=== PATIENT | male | born 1965 | race Caucasian/White ===

== ENCOUNTER 2020-11-11 06:27 | Outpatient (REF) | payer OTHER, SELFPAY | END 2020-11-11 06:28 | disposition home or self-care (01) | LOC: HO.LAB 06:27 | PROVIDERS: PCP Internal Medicine; Visit Provider Internal Medicine | DX: Z20.828 Contact with and (suspected) exposure to other viral communicable diseases (principal) | CPT/HCPCS: C9803; U0003 ==

== ENCOUNTER 2020-11-18 08:41 | Outpatient (REF) | payer OTHER, SELFPAY ==
[2020-11-19 23:07] LABS: Phenytoin, Free/Unbound 1.4 mg/L (1.0-2.0)
== END 2020-11-18 08:42 | disposition home or self-care (01) ==
LOC: HO.LAB 08:41
PROVIDERS: PCP Internal Medicine; Visit Provider Internal Medicine
DX: R56.9 Unspecified convulsions (principal)
CPT/HCPCS: 36415; 80186

== ENCOUNTER 2020-11-23 11:18 | Outpatient (REF) | payer OTHER, SELFPAY | END 2020-11-23 11:19 | disposition home or self-care (01) | LOC: HO.LAB 11:18 | PROVIDERS: Visit Provider Internal Medicine | DX: Z20.822 Contact with and (suspected) exposure to COVID-19 (principal) | CPT/HCPCS: 36415; C9803; U0003 ==

== ENCOUNTER 2021-01-22 09:23 | Outpatient (REF) | payer OTHER, SELFPAY ==
[2021-01-22 10:03] LABS: MANUAL DIFF FLAG NO
[2021-01-22 10:13] LABS: Basophils Percent Auto 0.4 % (0-2); Eosinophils Absolute Auto 0.1 X10*3/uL (0.0-0.4); Eosinophils Percent Auto 1.6 % (0-4); Hematocrit 44.7 % (42-52); Hemoglobin 15.1 g/dl (14.0-18.0); Imm Gran Abs Auto 0.01 X10*3/uL (0.00-0.03); Imm Gran Pct Auto 0.1 % (0.0-0.4); Lymphocytes Absolute Auto 2.4 X10*3/uL (1.2-4.9); Mean Corpuscular HGB Conc 33.8 g/dl (31.0-36.0); Mean Corpuscular Volume 88.7 fL (80-98); Mean Platelet Volume 9.7 fL (9.4-12.4); Monocytes Absolute Auto 0.7 X10*3/uL (0.1-1.2); Monocytes Percent Auto 10.3 % (2-11); Neutrophils Absolute Auto 3.5 X10*3/uL (2.0-8.3); Neutrophils Percent Auto 52.6 % (45-73); Platelet Count 213 X10*3/uL (160-400); Red Blood Count 5.04 X10*6/uL (4.60-5.80); Red Cell Distribution Width 14.4 % (11.0-16.0); White Blood Count 6.7 X10*3/uL (4.8-10.8)
[2021-01-22 10:37] LABS: Alanine Aminotransferase 38 U/L (0-40); Albumin Level 4.5 g/dL (3.5-5.0); Alkaline Phosphatase 92 U/L (39-117); Anion Gap 13 (12-20); Aspartate Amino Transferase 27 U/L (5-37); Bilirubin Total 0.3 mg/dL (0.0-1.0); Blood Urea Nitrogen 22 mg/dL (9-16); Carbon Dioxide 28 mmol/L (22-29); Chloride 106 mmol/L (96-108); Cholesterol 181 mg/dL; Estimated Glomerular Filt Rate > 60; Glucose Fasting 92 mg/dL (60-99); HDL Cholesterol 66 mg/dL; LDL Cholesterol Calculated 102 mg/dl; Potassium 4.7 mmol/L (3.3-5.1); Sodium 142 mmol/L (135-145); Total Protein 7.4 g/dL (6.5-8.0); Triglycerides 68 mg/dL
== END 2021-01-22 09:24 | disposition home or self-care (01) ==
LOC: HO.LAB 09:23
PROVIDERS: PCP Internal Medicine; Visit Provider Internal Medicine
DX: E78.00 Pure hypercholesterolemia, unspecified (principal); E11.9 Type 2 diabetes mellitus without complications; R56.9 Unspecified convulsions
CPT/HCPCS: 36415; 80053; 80061; 85025

== ENCOUNTER 2021-08-13 09:05 | Outpatient (REF) | payer OTHER, SELFPAY ==
[2021-08-13 10:26] LABS: Alanine Aminotransferase 26 U/L (0-40); Albumin Level 4.4 g/dL (3.5-5.0); Alkaline Phosphatase 89 U/L (39-117); Anion Gap 11 (12-20); Aspartate Amino Transferase 41 U/L (5-37); Bilirubin Total 0.4 mg/dL (0.0-1.0); Blood Urea Nitrogen 16 mg/dL (9-16); Calcium 9.3 mg/dL (8.4-10.2); Carbon Dioxide 29 mmol/L (22-29); Chloride 108 mmol/L (96-108); Cholesterol 178 mg/dL; Estimated Glomerular Filt Rate > 60; Glucose Fasting 101 mg/dL (60-99); HDL Cholesterol 52 mg/dL; LDL Cholesterol Calculated 115 mg/dl; Potassium 4.8 mmol/L (3.3-5.1); Sodium 143 mmol/L (135-145); Triglycerides 59 mg/dL
[2021-08-13 11:02] LABS: Phenytoin Dilantin 24.6 ug/mL (10.0-20.0)
== END 2021-08-13 09:06 | disposition home or self-care (01) ==
LOC: HO.LAB 09:05
PROVIDERS: Absent Provider Psychiatry & Neurology Neurology; PCP Internal Medicine; Visit Provider Internal Medicine
DX: E78.00 Pure hypercholesterolemia, unspecified (principal); E78.5 Hyperlipidemia, unspecified; G40.909 Epilepsy, unspecified, not intractable, without status epilepticus
CPT/HCPCS: 36415; 80053; 80061; 80185

== ENCOUNTER 2021-09-06 08:50 | Outpatient (REF) | payer OTHER, SELFPAY | END 2021-09-06 08:51 | disposition home or self-care (01) | LOC: HO.LAB 08:50 | PROVIDERS: PCP Internal Medicine; Visit Provider Psychiatry & Neurology Neurology | DX: G40.909 Epilepsy, unspecified, not intractable, without status epilepticus (principal); Z79.899 Other long term (current) drug therapy | CPT/HCPCS: 36415; 80185 ==

== ENCOUNTER 2021-10-06 08:30 | Outpatient (REF) | payer OTHER, SELFPAY ==
[2021-10-06 10:08] LABS: Phenytoin Dilantin 14.3 ug/mL (10.0-20.0)
== END 2021-10-06 08:31 | disposition home or self-care (01) ==
LOC: HO.LAB 08:30
PROVIDERS: Internal Medicine; Visit Provider Psychiatry & Neurology Neurology
DX: G40.909 Epilepsy, unspecified, not intractable, without status epilepticus (principal)
CPT/HCPCS: 36415; 80185

== ENCOUNTER 2022-01-24 15:28 | Outpatient (REF) | payer OTHER, SELFPAY ==
[2022-01-24 16:52] LABS: Free T4 (Free Thyroxine) 0.87 ng/dL (0.71-1.85); Thyroid Stimulating Hormone 1.55 uIU/mL (0.32-4.0)
== END 2022-01-24 15:29 | disposition home or self-care (01) ==
LOC: HO.LAB 15:28
PROVIDERS: PCP Internal Medicine; Visit Provider Internal Medicine
DX: E04.1 Nontoxic single thyroid nodule (principal)
CPT/HCPCS: 36415; 84439; 84443

== ENCOUNTER 2022-02-07 08:54 | Outpatient (REF) | payer OTHER, SELFPAY ==
--- NOTE | ~2022-02-07 | US_ITS ---
EXAMINATION: US THYROID CLINICAL INFORMATION: Nontoxic single thyroid nodule. COMPARISON: None TECHNIQUE: Linear transducer grayscale and color Doppler examination with attention to the region of the thyroid. FINDINGS: SIZE: Measurements of the thyroid lobes and nodules are given in sagittal, anteroposterior and transverse dimensions respectively. Right Thyroid Lobe: 5.32 x 1.67 x 1.65 cm, volume 7.66 mL. Parenchyma: The gland echotexture is heterogeneous. Thyroid vascularity is normal. Left Thyroid Lobe: 5.29 x 1.56 x 2.07 cm, volume 8.97 mL. Parenchyma: The gland echotexture is heterogeneous. Thyroid vascularity is normal. Isthmus: 0.36 cm in maximum AP dimension. There are multiple small bilateral thyroid nodules. Estimated total number of nodules greater than or equal to 1 cm: 0. 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 Location: Isthmus. Size: 0.31 x 0.21 x 0.34 cm, volume 0.01 mL. Nodule characteristics: Composition: Spongiform (0). Echogenicity: Anechoic (0). Shape: Not taller than wide (0). Margins: Smooth (0). Echogenic Foci: None (0). ACR TI-RADS total points: 0 ACR TI-RADS category: 1 2. Location: Right superior. Size: 0.44 x 0.31 x 0.41 cm, volume 0.03 mL. Nodule characteristics: Composition: Cystic(0). ACR TI-RADS total points: 0 ACR TI-RADS category: 1 3. Location: Right mid. Size: 0.48 x 0.36 x 0.39 cm, volume 0.03 mL. Nodule characteristics: Composition: Cystic(0). ACR TI-RADS total points: 0 ACR TI-RADS category: 1 4. Location: Left superior. Size: 0.71 x 0.48 x 0.55 cm, volume 0.10 mL. Nodule characteristics: Composition: Cystic(0). ACR TI-RADS total points: 0 ACR TI-RADS category: 1 5. Location: Left mid. Size: 0.89 x 0.71 x 0.72 cm, volume 0.23 mL. Nodule characteristics: Composition: Solid (2). Echogenicity: Isoechoic (1). Shape: Not taller than wide (0). Margins: Smooth (0). Echogenic Foci: None (0). ACR TI-RADS total points: 3 ACR TI-RADS category: 3 NODES: No lymphadenopathy is seen in the tissue surrounding the thyroid gland. US/US thyroid IMPRESSION: Multiple small bilateral thyroid nodules. These do not meet TIA RADS criteria for follow-up exam or fine-needle aspiration. ACR TI-RADS RECOMMENDATION REFERENCE: Ultrasound-guided fine-needle aspiration, followup ultrasound, no further follow up. * TR1 (0 point) and TR 2 (2 points): No FNA or follow up * TR3 (3 points): FNA if more than or equal to 2.5 cm in maximum dimension, followup ultrasound in 1, 3 and 5 years if 1.5 to 2.4 cm in maximum dimension. * TR4 (4-6 points): FNA if more than or equal to 1.5 cm in maximum dimension, followup ultrasound in 1, 2, 3 and 5 years if 1 to 1.4 cm in maximum dimension. * TR5 (more than or equal to 7 points): FNA if more than or equal to 1 cm in maximum dimension, followup ultrasound every year for 5 years if 0.5 to 0.9 cm in maximum dimension. * TR3, TR4 or TR5 nodules that are below the size threshold for follow up receive no follow up.
== END 2022-02-07 08:55 | disposition home or self-care (01) ==
LOC: HO.HMGCX 08:54
PROVIDERS: PCP Internal Medicine; Visit Provider Internal Medicine
DX: E04.1 Nontoxic single thyroid nodule (principal)
CPT/HCPCS: 76536

== ENCOUNTER 2022-02-11 08:21 | Outpatient (REF) | payer OTHER, SELFPAY ==
[2022-02-11 09:37] LABS: Alanine Aminotransferase 40 U/L (0-40); Albumin Level 4.4 g/dL (3.5-5.0); Alkaline Phosphatase 88 U/L (39-117); Anion Gap 10 (12-20); Aspartate Amino Transferase 38 U/L (5-37); Bilirubin Total 0.2 mg/dL (0.0-1.0); Blood Urea Nitrogen 22 mg/dL (9-16); Calcium 9.4 mg/dL (8.4-10.2); Carbon Dioxide 29 mmol/L (22-29); Chloride 107 mmol/L (96-108); Cholesterol 198 mg/dL; Estimated Glomerular Filt Rate > 60; Glucose Fasting 100 mg/dL (60-99); HDL Cholesterol 59 mg/dL; LDL Cholesterol Calculated 129 mg/dl; Potassium 4.8 mmol/L (3.3-5.1); Sodium 141 mmol/L (135-145); Total Protein 7.1 g/dL (6.5-8.0); Triglycerides 53 mg/dL
[2022-02-11 10:49] LABS: Phenytoin Dilantin 21.2 ug/mL (10.0-20.0)
== END 2022-02-11 08:22 | disposition home or self-care (01) ==
LOC: HO.LAB 08:21
PROVIDERS: Absent Provider Psychiatry & Neurology Neurology; PCP Internal Medicine; Visit Provider Internal Medicine
DX: G40.909 Epilepsy, unspecified, not intractable, without status epilepticus (principal); E78.00 Pure hypercholesterolemia, unspecified; E78.5 Hyperlipidemia, unspecified; Z79.899 Other long term (current) drug therapy
CPT/HCPCS: 36415; 80053; 80061; 80185

== ENCOUNTER 2022-02-28 09:58 | Outpatient (REF) | payer OTHER, SELFPAY ==
[2022-02-28 11:47] LABS: Phenytoin Dilantin 14.4 ug/mL (10.0-20.0)
== END 2022-02-28 09:59 | disposition home or self-care (01) ==
LOC: HO.LAB 09:58
PROVIDERS: PCP Internal Medicine; Visit Provider Psychiatry & Neurology Neurology
DX: G40.909 Epilepsy, unspecified, not intractable, without status epilepticus (principal); Z79.899 Other long term (current) drug therapy
CPT/HCPCS: 36415; 80185

== ENCOUNTER 2022-07-05 07:36 | Outpatient (REF) | payer OTHER, SELFPAY ==
[2022-07-05 08:31] LABS: Alanine Aminotransferase 28 U/L (0-40); Albumin Level 4.4 g/dL (3.5-5.0); Alkaline Phosphatase 74 U/L (39-117); Anion Gap 13 (12-20); Aspartate Amino Transferase 36 U/L (5-37); Bilirubin Total 0.3 mg/dL (0.0-1.0); Blood Urea Nitrogen 23 mg/dL (9-16); Calcium 9.2 mg/dL (8.4-10.2); Carbon Dioxide 27 mmol/L (22-29); Chloride 106 mmol/L (96-108); Cholesterol 189 mg/dL; Estimated Glomerular Filt Rate > 60; Glucose Fasting 99 mg/dL (60-99); HDL Cholesterol 62 mg/dL; LDL Cholesterol Calculated 116 mg/dl; Potassium 4.5 mmol/L (3.3-5.1); Sodium 141 mmol/L (135-145); Total Protein 7.2 g/dL (6.5-8.0); Triglycerides 58 mg/dL
== END 2022-07-05 07:37 | disposition home or self-care (01) ==
LOC: HO.LAB 07:36
PROVIDERS: PCP Internal Medicine; Visit Provider Internal Medicine
DX: E78.5 Hyperlipidemia, unspecified (principal); E78.00 Pure hypercholesterolemia, unspecified
CPT/HCPCS: 36415; 80053; 80061

== ENCOUNTER 2022-08-15 16:00 | Outpatient (REF) | payer OTHER, SELFPAY ==
[2022-08-15 17:56] LABS: Phenytoin Dilantin 14.3 ug/mL (10.0-20.0)
== END 2022-08-15 16:01 | disposition home or self-care (01) ==
LOC: HO.LAB 16:00
PROVIDERS: PCP Internal Medicine; Visit Provider Psychiatry & Neurology Neurology
DX: G40.909 Epilepsy, unspecified, not intractable, without status epilepticus (principal); Z79.899 Other long term (current) drug therapy
CPT/HCPCS: 36415; 80185

== ENCOUNTER 2023-02-10 08:29 | Outpatient (REF) | payer OTHER, SELFPAY ==
[2023-02-10 09:47] LABS: Alanine Aminotransferase 29 U/L (0-40); Albumin Level 4.7 g/dL (3.5-5.0); Alkaline Phosphatase 82 U/L (39-117); Anion Gap 14 (12-20); Aspartate Amino Transferase 35 U/L (5-37); Bilirubin Total 0.4 mg/dL (0.0-1.0); Blood Urea Nitrogen 26 mg/dL (9-16); Calcium 9.4 mg/dL (8.4-10.2); Carbon Dioxide 25 mmol/L (22-29); Chloride 107 mmol/L (96-108); Cholesterol 221 mg/dL; Estimated Glomerular Filt Rate 54; Glucose Fasting 111 mg/dL (60-99); HDL Cholesterol 64 mg/dL; LDL Cholesterol Calculated 142 mg/dl; Phenytoin Dilantin 16.4 ug/mL (10.0-20.0); Potassium 4.9 mmol/L (3.3-5.1); Sodium 141 mmol/L (135-145); Total Protein 7.5 g/dL (6.5-8.0); Triglycerides 76 mg/dL
[2023-02-12 03:58] LABS: Phenytoin, Free/Unbound 0.7 mg/L (1.0-2.0)
== END 2023-02-10 08:30 | disposition home or self-care (01) ==
LOC: HO.LAB 08:29
PROVIDERS: Absent Provider Psychiatry & Neurology Neurology; PCP Internal Medicine; Visit Provider Internal Medicine
DX: E78.00 Pure hypercholesterolemia, unspecified (principal); E78.5 Hyperlipidemia, unspecified; G40.909 Epilepsy, unspecified, not intractable, without status epilepticus; Z79.899 Other long term (current) drug therapy
CPT/HCPCS: 36415; 80053; 80061; 80185; 80186

== ENCOUNTER 2023-03-16 13:26 | Outpatient (REF) | payer OTHER, SELFPAY ==
--- NOTE | ~2023-03-16 | XR_ITS ---
EXAMINATION: XR ELBOW, RIGHT CLINICAL INFORMATION: Right elbow pain. COMPARISON: None available. TECHNIQUE: AP, lateral, and oblique views of the right elbow. FINDINGS: Moderate soft tissue swelling is seen posterior to the olecranon. There is a small to moderate-sized posterior olecranon spur with lucency at the base. The joint spaces are unremarkable. No overt joint effusion is seen. XR/XR elbow RT min 3V IMPRESSION: 1. Moderate soft tissue swelling posterior to the olecranon is nonspecific, but could be secondary to bursitis. 2. Small to moderate-sized posterior olecranon spur with lucency at the base suggesting fracture of indeterminate age. Correlate with physical exam and trauma history.
== END 2023-03-16 13:27 | disposition home or self-care (01) ==
LOC: HO.HMGCX 13:26
PROVIDERS: PCP Internal Medicine; Visit Provider Physician Assistant Medical
DX: M70.31 Other bursitis of elbow, right elbow (principal)
CPT/HCPCS: 73080

== ENCOUNTER → 2023-04-05 14:15 | Outpatient (BNVA) | payer OTHER, SELFPAY | PROVIDERS: PCP Internal Medicine; Visit Provider Physician Assistant ==

== ENCOUNTER 2023-08-16 08:58 | Outpatient (REF) | payer OTHER, SELFPAY ==
[2023-08-16 11:07] LABS: Alanine Aminotransferase 35 U/L (0-40); Albumin Level 4.6 g/dL (3.5-5.0); Alkaline Phosphatase 77 U/L (39-117); Anion Gap 12 (12-20); Aspartate Amino Transferase 41 U/L (5-37); Bilirubin Total 0.3 mg/dL (0.0-1.0); Blood Urea Nitrogen 25 mg/dL (9-16); Calcium 9.6 mg/dL (8.4-10.2); Carbon Dioxide 29 mmol/L (22-29); Chloride 104 mmol/L (96-108); Cholesterol 205 mg/dL (<200); Estimated Glomerular Filt Rate > 60; Glucose Fasting 92 mg/dL (60-99); HDL Cholesterol 64 mg/dL (>40); LDL Cholesterol Calculated 126 mg/dL (<100); Potassium 4.7 mmol/L (3.3-5.1); Sodium 140 mmol/L (135-145); Total Protein 7.7 g/dL (6.5-8.0); Triglycerides 75 mg/dL (<150)
[2023-08-19 01:09] LABS: Phenytoin, Free/Unbound 1.1 mg/L (1.0-2.0)
== END 2023-08-16 08:59 | disposition home or self-care (01) ==
LOC: HO.LAB 08:58
PROVIDERS: PCP Internal Medicine; Visit Provider Internal Medicine
DX: E78.00 Pure hypercholesterolemia, unspecified (principal); R56.9 Unspecified convulsions; E78.5 Hyperlipidemia, unspecified
CPT/HCPCS: 36415; 80053; 80061; 80186

== ENCOUNTER 2023-08-17 07:23 | Outpatient (AMB) | payer OTHER, SELFPAY ==
[2023-08-17 07:31] VITALS: BP 118/68; PULSE 82; O2SAT 97; BMI 23.9
--- NOTE | 2023-08-17 07:31 | A.OFFPC_ITS ---
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 Accompanied by: Self / Same As Patient Allergies No Known Allergies Allergy (Verified 08/17/23 07:37) Medication List - Last Reconciled 08/17/23 by Keyona Carter MD loratadine (Allergy Relief (loratadine)) 10 mg PO DAILY naproxen sodium (Aleve) 220 mg PO BID PRN phenytoin sodium extended mg PO rosuvastatin 40 mg PO DAILY Tobacco use date assessed: 02/16/23 Dental Screening Dental Screen Date: 08/17/23 Did you have a dental visit in the last 12 months?: No Did you have a dental problem in the last 6 months where you did not have access to dental care?: No Was dental information given to patient?: Patient has dentist HPI HPI Comments History of Present Illness Details This is a 58-year-old male with pure hypercholesterolemia, seizures and allergic rhinitis that comes today for follow-up on his conditions. Cholesterol is elevated but he admits have fried foods and lipid panel will be repeated in 6 months after his dietary changes. Has not had a seizure in over 6 months. Allergic rhinitis stable with antihistamines. [facility] Medical History History of basal cell carcinoma Physical exam Thyroid nodule Dyspnea Allergic rhinitis Pure hypercholesterolemia Seizures Surgical History History of surgery History of colonoscopy H/O basal cell carcinoma excision Family History Father Myocardial infarction Uncontrolled persistent asthma Mother COPD (chronic obstructive pulmonary disease) Breast cancer Sister Asthma Brain tumor Maternal Aunt Breast cancer Social History Housing: Condominium Alcohol intake: never Patient Tobacco Use Status: Never used Tobacco e-Cigarette/Vaping Use: Never Used Second Hand Smoke Exposure: No service: No Current occupational status: unemployed and retired Cognitive needs: No Hearing needs: No Vision needs: No Questionnaire PHQ-9 Over the last 2 weeks, how often have you been bothered by any of the following problems? 1. Little interest or pleasure in doing things: not at all 2. Feeling down, depressed, or hopeless: not at all 3. Trouble falling or staying asleep, or sleeping too much: not at all 4. Feeling tired or having little energy: not at all 5. Poor appetite or overeating: not at all 6. Feeling bad about yourself - or that you are a failure or have let yourself or your family down: not at all 7. Trouble concentrating on things, such as reading the newspaper or watching television: not at all 8. Moving or speaking so slowly that other people could have noticed. Or the opposite - being so fidgety or restless that you have been moving around a lot more than usual: not at all 9. Thoughts that you would be better off or of hurting yourself in some way: not at all Total score: 0 Depression Screening Interpretation: Negative Depression Screening Done: Yes 59191 - PHQ-9 Billing: Yes Source: Developed by Drs. Cheng Ingram, Elif Perry, Patricio Xie and colleagues, with an educational dex from [employer]. Thrive Questionnaire Date Thrive assessed: 02/16/23 AUDIT C Alcohol Use Questionnaire (AUDIT-C) 1. How often do you have a drink containing alcohol?: Never Total Score: 0 Score Reviewed/Action Taken: No NAHID-7 AMB Questionnaire NAHID-7 Date NAHID - 7 assessed: 02/16/23 Source: Developed by Drs. Cheng Ingram, Patricio Bella and colleagues, with an educational dex from [employer]. Review of Systems Const All systems reviewed & are unremarkable except as noted in HPI and below Eyes Reports no additional complaints, Denies change in vision and Denies other visual disturbances Card Denies chest pain at rest, Denies chest pain with activity, Denies edema, Denies irregular heart rhythm, Denies claudication, Denies dyspnea, Denies dyspnea on exertion, Denies orthopnea, Denies paroxysmal nocturnal dyspnea and Denies slow heart rate Resp Denies cough, Denies dyspnea and Denies dyspnea on exertion GI Denies abdominal pain, Denies change in bowel habits, Denies excessive flatus, Denies nausea and Denies vomiting Denies urinary hesitancy, Denies urinary incontinence and Denies urinary urgency Musc Denies abnormal gait, Denies atrophy, Denies deformity and Denies limited range of motion Skin/Breast Denies bleeding lesions, Denies changing lesions and Denies rash Neuro Denies abnormal gait and Denies lack of coordination Physical exam (Primary Care) Vital Signs: Last Vital Signs Pulse 82 08/17/23 07:31 BP 118/68 08/17/23 07:31 Pulse Ox 97 08/17/23 07:31 Oxygen Delivery Method Room Air 08/17/23 07:31 BMI result Body Mass Index 23.9 Tobacco/Smoking Status: Tobacco use Status Tobacco use date assessed 02/16/23 08/17/23 07:35 Patient Tobacco Use Status Never used Tobacco 08/17/23 07:35 e-Cigarette/Vaping Use Never Used 08/17/23 07:35 PHQ-9: PHQ-9 Score PHQ-9: Total score 0 08/17/23 07:35 Depression Screening Interpretation: Negative Thrive Assessment: Date of Thrive Assessment Date Thrive assessed 02/16/23 08/17/23 07:35 Const Orientation/consciousness: patient oriented x3 Eyes General: appearance normal, both eyes and all related structures Eyelids: Yes eyelids normal Conjunctivae: conjunctivae normal Neck Neck: Yes normal visual inspection and Yes supple Resp Effort & Inspection: normal respiratory effort Auscultation: clear to auscultation bilaterally Cardio Jugular venous distension: no JVD Rate: regular rate Rhythm: regular rhythm Heart sounds: S1 normal heart sound present and S2 normal heart sound present Neuro General: patient oriented x3 and no focal motor deficits Extrem General: Yes full ROM Assessment and Plan Assessment & Plan (1) Seizures: Code(s): R56.9 - Unspecified convulsions Plan: Continue phenytoin. Follow-up with Neurology. (2) Pure hypercholesterolemia: Code(s): E78.00 - Pure hypercholesterolemia, unspecified Plan: Continue statins. Repeat lipid panel. (3) Allergic rhinitis: Code(s): J30.9 - Allergic rhinitis, unspecified Qualifiers: Allergic rhinitis trigger: pollen Allergic rhinitis seasonality: seasonal Qualified Code(s): J30.1 - Allergic rhinitis due to pollen Plan: Continue antihistamines. Orders: Orders Lipid Panel 6 Months E78.5 - Hyperlipidemia, unspecified Comprehensive [place]. Panel Fast 6 Months R56.9 - Unspecified convulsions Coding Level of Care Code Est Pt Level 3 (05820) Diagnoses Seizures R56.9 Pure hypercholesterolemia E78.00 Seasonal allergic rhinitis due to pollen J30.1 Allergic rhinitis trigger: pollen Allergic rhinitis seasonality: seasonal Time Spent (min) 18
== END 2023-08-17 07:48 | disposition home or self-care (01) ==
PROVIDERS: Visit Provider Internal Medicine
DX: R56.9 Unspecified convulsions (principal); E78.00 Pure hypercholesterolemia, unspecified; J30.1 Allergic rhinitis due to pollen
CPT/HCPCS: 99213

== ENCOUNTER 2023-10-03 08:04 | Outpatient (AMB) | payer OTHER, SELFPAY ==
--- NOTE | 2023-10-03 08:08 | AM.OFFWIN_ITS ---
Intake Vital Signs 10/03/23 08:18 Height 6 ft Weight 180 lb 4 oz BMI 24.4 BP 122/70 Blood Pressure Location Rt brachial Position Sitting Pulse 68 Pulse Source Pulse Oximeter Temp 97.8 F Temp Source Temporal Artery Scan Pulse Oximetry (%) 97 Intake Visit Reasons: EP sinus infection phlem masked in lobby Intake Note: pt is here fr c/o sinus infection Patient Tobacco Use Status: Never used Tobacco Allergies No Known Allergies Allergy (Verified 10/03/23 08:18) Do you need a note to return to daycare/school/sports/work: Yes HPI HPI Comments History of Present Illness Details The patient is a 58-year-old male in today for a sick visit. He reports that for the last 3 days he has had a sinus headache, sore throat, productive cough, with reportedly green phlegm. He has family that he has been around at home that is sick. He states he has used at home Tylenol and Mucinex with some good effect. Denies dizziness, shortness of breath, chest pain. Head is normocephalic. TM not visible on the right side due to cerumen impaction. Left TM visible, fluid present pearly rutherford. Patient admits sinus tenderness. Pharynx normal. Breath sounds normal. Patient likely has upper respiratory infection. Unlikely to be mastoiditis or epiglottitis. Patient is unlikely to have threat to airway. Will order azithromycin, prednisone. Will obtain respiratory swab. Patient has been educated on the side effects of medication. Patient has been educated on signs of worsening symptoms and when to present back to the walk-in and when to present to the emergency room. PENDING SALE TO [facility] Medical History History of basal cell carcinoma Physical exam Thyroid nodule Dyspnea Allergic rhinitis Pure hypercholesterolemia Seizures Surgical History History of surgery History of colonoscopy H/O basal cell carcinoma excision Family History Father Myocardial infarction Uncontrolled persistent asthma Mother COPD (chronic obstructive pulmonary disease) Breast cancer Sister Asthma Brain tumor Maternal Aunt Breast cancer Social History Housing: Condominium Alcohol intake: never Patient Tobacco Use Status: Never used Tobacco e-Cigarette/Vaping Use: Never Used Second Hand Smoke Exposure: No service: No Current occupational status: unemployed and retired Cognitive needs: No Hearing needs: No Vision needs: No Review of Systems Const Details: Constitutional : No Weight loss, Admits Fatigue. ENT/Mouth : Admits sore throat, No Rhinorrhea Cardiovascular : No Chest Pain, No SOB, No Dyspnea on Exertion, No Orthopnea, No Edema, No Palpitations Respiratory : Admits cough and mucus production, No Wheezing Gastrointestinal : No Nausea, No Vomiting, No Diarrhea, No Constipation, No abdominal Pain, No Hematochezia, No Melena Neuro : No Weakness, No Numbness, No Dizziness, No Headache All other systems reviewed and are negative Physical Exam Vital Signs: Last Vital Signs Temp 97.8 F 10/03/23 08:18 Pulse 68 10/03/23 08:18 BP 122/70 10/03/23 08:18 Pulse Ox 97 10/03/23 08:18 BMI result Body Mass Index 24.4 Const Other: Appearance: Alert.? Oriented X3.? No acute distress.? Head: Normocephalic. Eyes: Pupils equal, round and reactive to light.? ENT: Pharynx erythema no pettechie, Cerumen inmaction right ear, left TM visible and pearly rutherford. ? Neck: Normal inspection.? Neck supple.? CVS: Normal heart rate and rhythm.? Pulses normal.? Respiratory: No respiratory distress.? Breath sounds normal.? Neuro: Oriented X 3.? No motor deficit.? General: no acute distress Limitations: no limitations Assessment & Plan Assessment & Plan (1) Upper respiratory infection: Code(s): J06.9 - Acute upper respiratory infection, unspecified Qualifiers: URI type: unspecified URI Qualified Code(s): J06.9 - Acute upper respiratory infection, unspecified Plan: Patient will be given azithromycin, and prednisone, to be taken in the entirety. Patient has been educated on the side effects of the medication. Patient has been educated on signs of worsening symptoms and when to report to the walk-in or when to report to the emergency room. Patient is agreeable to this plan. Orders: Orders SARS-CoV2/FLU/RSV Today J06.9 - Acute upper respiratory infection, unspecified Coding Level of Care Code Est Pt Level 3 (54852) Diagnoses Upper respiratory tract infection, unspecified type J06.9 URI type: unspecified URI Time Spent (min) 15
[2023-10-03 08:18] VITALS: BP 122/70; PULSE 68; TEMP 36.6; O2SAT 97; BMI 24.4
== END 2023-10-03 08:45 | disposition home or self-care (01) ==
PROVIDERS: PCP Internal Medicine; Visit Provider Nurse Practitioner Primary Care
DX: J06.9 Acute upper respiratory infection, unspecified (principal)
CPT/HCPCS: 99213; 99499

== ENCOUNTER 2023-10-03 09:34 | Outpatient (REF) | payer OTHER, SELFPAY ==
[2023-10-03 15:03] LABS: Influenza A PCR NEGATIVE (Negative); Influenza B PCR NEGATIVE (Negative); Resp Syncy Virus RNA Qual PCR NEGATIVE (Negative); SARS COV2 PCR INHOUSE POSITIVE (Negative)
== END 2023-10-03 09:35 | disposition home or self-care (01) ==
LOC: HO.LAB 09:34
PROVIDERS: Visit Provider Nurse Practitioner Primary Care
DX: Z11.52 Encounter for screening for COVID-19 (principal); J06.9 Acute upper respiratory infection, unspecified
CPT/HCPCS: 0241U

== ENCOUNTER 2023-10-24 07:22 | Outpatient (AMB) | payer OTHER, SELFPAY ==
--- NOTE | 2023-10-24 07:33 | MHC.OFFVIS ---
Intake Vital Signs 10/24/23 07:34 Height 6 ft Weight 182 lb BMI 24.7 BP 124/72 Blood Pressure Location Lt brachial Position Sitting Pulse 64 Intake Visit Reasons: Colonoscopy Screening Intake Note: Patient new consult for 3rd pre colonoscopy screening. Patient denies any GI issues. Dr. 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 PFSH Medical History History of basal cell carcinoma Physical exam Thyroid nodule Dyspnea Allergic rhinitis Pure hypercholesterolemia Seizures Surgical History History of surgery History of colonoscopy H/O basal cell carcinoma excision Family History Father Myocardial infarction Uncontrolled persistent asthma Mother COPD (chronic obstructive pulmonary disease) Breast cancer Sister Asthma Brain tumor Maternal Aunt Breast cancer Social History (Updated 10/24/23 @ 07:48 by Laura Nielsen PA-C) Housing: Condominium Alcohol intake: never Patient Tobacco Use Status: Never used Tobacco e-Cigarette/Vaping Use: Never Used Second Hand Smoke Exposure: No service: No Current occupational status: unemployed and retired 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 Cognitive needs: No Hearing needs: No Vision needs: No Review of Systems Const All systems reviewed & are unremarkable except as noted in HPI and below Card Denies chest pain and Denies dyspnea Resp Denies dyspnea Physical Exam Vital Signs: Last Vital Signs Pulse 64 10/24/23 07:34 BP 124/72 10/24/23 07:34 BMI result Body Mass Index 24.7 Const General: cooperative, healthy appearing and comfortable Orientation/consciousness: patient oriented x3 Limitations: no limitations Eyes Sclerae: sclerae normal Resp Effort & Inspection: normal respiratory effort and able to speak in complete sentences Auscultation: clear to auscultation bilaterally, no rales, no rhonchi and no wheezes Cardio Rate: regular rate Rhythm: regular rhythm Heart sounds: S1 normal heart sound present and S2 normal heart sound present GI Palpation (GI): Soft to palpation and nontender Auscultation: normal bowel sounds Skin General skin exam: no rashes or lesions noted Neuro General: patient oriented x3 Extrem General: Yes full ROM Psych Appearance: grossly normal and well kempt Mental Status: mental status grossly normal Speech and movement: Normal speech and movement present and Clear speech present Affect: normal affect and Anxious affect present Attitude: cooperative Thought process: Normal thought process present Thought content: Normal thought content present Insight: Good insight present (Psych) Judgement: Good judgement present (Psych) Results Reviewed Results Reviewed: colonoscopy-11/2019. 06/2020 Assessment & Plan Assessment & Plan (1) History of colon polyps: Comment: adenomas- 2019- Dr. Villatoro He is mistrusting- health customer care consultant discussed procedure, rare risks, need for escort, anesthesia Code(s): Z86.010 - Personal history of colonic polyps Plan: polyp surveillance Plan polyp surveillance MG prep Orders: Orders Colonoscopy - GI Use Only Today Z86.010 - Personal history of colonic polyps Medications: New bisacodyl (Dulcolax (bisacodyl)) Day before procedure, prep day Take 4 tablets by mouth upon awakening followed by large glass of water 20 mg (4 x 5 mg) PO ONCE 1 day 4 tabs 0RF colonoscopy prep Z12.11 - Encounter for screening for malignant neoplasm of colon polyethylene glycol 3350 (Miralax) Take as directed by mouth the day before your procedure. 238 grams PO ONCE 1 day PRN 238 grams 0RF laxative effect Patient Instructions: polyp surveillance MG prep, reviewed, lit given Reassured Encouraged to call with questions or concerns Quality Reporting (2019) Adult ([facility] 138/2/) Smoking risk assessment performed?: Yes Patient Tobacco Use Status: Never used Tobacco Coding Level of Care Code New Pt Level 3 (46710) Diagnoses History of colon polyps Z86.010 Time Spent (min) 30
[2023-10-24 07:34] VITALS: BP 124/72; PULSE 64; BMI 24.7
== END 2023-10-24 08:47 | disposition home or self-care (01) ==
PROVIDERS: PCP Internal Medicine; Visit Provider Physician Assistant
DX: Z86.010 Personal history of colon polyps (principal)
CPT/HCPCS: 99203

== ENCOUNTER → 2023-10-24 07:22 | Outpatient (BNVA) | payer OTHER, SELFPAY | PROVIDERS: PCP Internal Medicine; Visit Provider Physician Assistant ==

== ENCOUNTER 2024-02-08 09:51 | Inpatient (IN) | payer OTHER, SELFPAY ==
--- NOTE | 2024-02-08 | ECG_ITS ---
Test Reason : SHORT OF BREATH Blood Pressure : / mmHG Vent. Rate : 085 BPM Atrial Rate : 085 BPM P-R Int : 152 ms QRS Dur : 090 ms QT Int : 372 ms P-R-T Axes : 018 -06 009 degrees QTc Int : 442 ms Normal sinus rhythm Normal ECG When compared with ECG of 30-DEC-2018 02:28, No significant change was found Referred By: Generic ED Physician Electronically Signed By:Stu Chacon
--- NOTE | ~2024-02-08 | US_ITS ---
EXAMINATION: US VENOUS ULTRASOUND WITH DOPPLER LOWER EXTREMITY, LEFT CLINICAL INFORMATION: DVT in right lower leg. Now complaining of left calf pain. COMPARISON: None available. TECHNIQUE: Ultrasound of the deep veins is performed from the hip to the calf with compression sonography and color and pulse Doppler assessment. Spectral analysis with color-flow imaging is performed. FINDINGS: There is normal venous compression and respiratory variation and augmented flow. The visualized common femoral vein, superficial femoral vein, profunda femoral vein, popliteal vein, and the trifurcation region shows no evidence of deep venous thrombosis. There is no significant popliteal fossa cyst. If the patient's symptoms persist, followup ultrasound in 5 days 7 days might be of value to exclude proximal propagation from a non-visualized calf vein. US/US venous duplex LE IMPRESSION: No DVT demonstrated in the left lower extremity.
--- NOTE | ~2024-02-08 | US_ITS ---
EXAMINATION: US VENOUS ULTRASOUND WITH DOPPLER LOWER EXTREMITY, RIGHT CLINICAL INFORMATION: Right lower extremity pain COMPARISON: None available. TECHNIQUE: Ultrasound of the deep veins is performed from the hip to the calf with compression sonography and color and pulse Doppler assessment. Spectral analysis with color-flow imaging is performed. FINDINGS: Posterior tibial veins are noncompressible. There is thrombus present throughout the right femoral vein. The popliteal vein is patent. The profunda femoris vein and the common femoral vein as well as the GSV are patent. US/US venous duplex LE RT IMPRESSION: DVT present in the right femoral vein and posterior tibial veins.
--- NOTE | ~2024-02-08 | CT_ITS ---
EXAMINATION: CT ANGIOGRAM OF THE CHEST WITH AND WITHOUT CONTRAST (CT PULMONARY ANGIOGRAM FOR PE) CLINICAL INFORMATION: Reason for Exam dyspnea calf pain elevated troponin COMPARISON: None available. TECHNIQUE: Prior to contrast administration, noncontrast localization images were obtained. Subsequently, multidetector volumetric imaging was performed from the thoracic inlet to below the diaphragms following the administration of 65 mL Omnipaque 350 intravenous contrast. No contrast reaction reported Sagittal, coronal, and MIP oblique sagittal reformatted images were obtained on the CT workstation, uploaded to PACS, and reviewed. This CT examination was performed using dose optimization techniques as appropriate, variously including the following: *Automated exposure control *Adjustment of mA and/or kV according to patient size (this includes techniques or standardized protocols for targeted exams where dose is matched to indication/reason for exam; i.e. extremities or head) *Use of iterative reconstruction technique Total exam dose-length product 287 mGy-cm FINDINGS: QUALITY OF STUDY/CONTRAST BOLUS: Satisfactory. PULMONARY ARTERIES: Bilateral pulmonary emboli are present involving segmental and subsegmental vessels involving all lobes of the lung. THORACIC AORTA: No aneurysm. LUNG: No focal consolidation, nodules or masses. There is some peribronchial thickening with some areas of mucus plugging (for example 7:264). PLEURA: No pleural effusion or pneumothorax. MEDIASTINUM: Size upper limits of normal. No pericardial effusion. No hilar or mediastinal lymphadenopathy. There is mild septal bowing consistent with right heart strain. CORONARY ARTERY CALCIFICATION: None visualized on this study. CHEST WALL/AXILLA: No axillary or internal mammary lymphadenopathy. OSSEOUS STRUCTURES: No acute or suspicious osseous abnormality. UPPER ABDOMEN: Unremarkable. No reflux of contrast into the hepatic veins to suggest elevated right heart pressures. CT/CT angio chest PE protocol IMPRESSION: Bilateral pulmonary emboli with evidence of right heart strain. VTE: positive.
[2024-02-08 10:17] VITALS: BP 130/86; PULSE 80; RESP 18; TEMP 36.3; O2SAT 96; BMI 24.4
[2024-02-08 10:43] LABS: MANUAL DIFF FLAG NO
[2024-02-08 10:46] LABS: Basophils Percent Auto 0.5 % (0-2); Eosinophils Absolute Auto 0.1 X10*3/uL (0.0-0.4); Eosinophils Percent Auto 1.3 % (0-4); Hematocrit 43.3 % (42.0-52.0); Hemoglobin 14.8 g/dl (14.0-18.0); Imm Gran Abs Auto 0.01 X10*3/uL (0.00-0.03); Imm Gran Pct Auto 0.2 % (0.0-0.4); Lymphocytes Percent Auto 18.2 % (20-40); Mean Corpuscular HGB Conc 34.2 g/dl (31.0-36.0); Mean Corpuscular Hemoglobin 30.4 pg (27.0-33.0); Mean Corpuscular Volume 88.9 fL (80.0-98.0); Mean Platelet Volume 9.5 fL (9.4-12.4); Monocytes Absolute Auto 0.6 X10*3/uL (0.1-1.2); Monocytes Percent Auto 10.3 % (2-11); Neutrophils Absolute Auto 3.9 x10*3/uL (2.0-8.3); Neutrophils Percent Auto 69.5 % (45-73); Platelet Count 138 X10*3/uL (160-400); Red Blood Count 4.87 X10*6/uL (4.60-5.80); Red Cell Distribution Width 13.2 % (11.0-16.0); White Blood Count 5.6 X10*3/uL (4.8-10.8)
[2024-02-08 11:06] LABS: Alanine Aminotransferase 33 U/L (0-40); Albumin Level 4.6 g/dL (3.5-5.0); Alkaline Phosphatase 115 U/L (39-117); Anion Gap 13 (12-20); Aspartate Amino Transferase 45 U/L (5-37); Bilirubin Total 0.3 mg/dL (0.0-1.0); Blood Urea Nitrogen 22 mg/dL (9-16); Calcium 9.6 mg/dL (8.4-10.2); Carbon Dioxide 28 mmol/L (22-29); Chloride 103 mmol/L (96-108); Creatinine Clr Calc Pharmacy 83.9; Estimated Glomerular Filt Rate > 60; Glucose Random 100 mg/dL (60-115); Sodium 139 mmol/L (135-145); Total Protein 7.8 g/dL (6.5-8.0)
[2024-02-08 11:17] LABS: Troponin-I High Sensitivity 185.2 ng/L (<3.5-35.0)
[2024-02-08 11:49] LABS: Influenza A PCR NEGATIVE (Negative); Influenza B PCR NEGATIVE (Negative); Resp Syncy Virus RNA Qual PCR NEGATIVE (Negative); SARS COV2 PCR INHOUSE NEGATIVE (Negative)
--- NOTE | 2024-02-08 12:10 | ED.SOB ---
HPI - SOB/Dyspnea General Chief Complaint: Dyspnea Stated Complaint: SOB Time Seen by Provider: 02/08/24 12:08 Source: patient Mode of arrival: ambulatory Limitations: no limitations History of Present Illness HPI Narrative: 58-year-old male past medical history significant for seizures, basal cell carcinoma hyperlipidemia who presents emergency department complaining of shortness a breath and right calf pain while exercising. Related Data Home Medications Medication Instructions Recorded Confirmed loratadine 10 mg tablet (Allergy 10 mg PO DAILY 10/20/20 08/17/23 Relief (loratadine)) naproxen sodium 220 mg tablet 220 mg PO BID PRN 10/20/20 08/17/23 (Aleve) phenytoin sodium extended 100 mg mg PO 07/06/22 08/17/23 capsule Previous Rx's Medication Instructions Recorded rosuvastatin 40 mg tablet 40 mg PO DAILY #90 tabs 03/30/23 bisacodyl 5 mg tablet,delayed 20 mg (4 x 5 mg) PO ONCE 10/24/23 release (Dulcolax (bisacodyl)) colonoscopy prep 1 day #4 tabs polyethylene glycol 3350 17 238 g PO ONCE PRN laxative effect 10/24/23 gram/dose oral powder (Miralax) 1 day #238 grams Allergies Allergy/AdvReac Type Severity Reaction Status Date / Time No Known Allergies Allergy Verified 02/08/24 10:28 [facility] Past Medical History Medical History History of basal cell carcinoma Physical exam Thyroid nodule Dyspnea Allergic rhinitis Pure hypercholesterolemia Seizures Surgical History History of surgery History of colonoscopy H/O basal cell carcinoma excision Family History Family History Father Myocardial infarction Uncontrolled persistent asthma Mother COPD (chronic obstructive pulmonary disease) Breast cancer Sister Asthma Brain tumor Maternal Aunt Breast cancer Social History Social History (Updated 10/24/23 @ 07:48 by Laura Nielsen PA-C) Housing: Condominium Alcohol intake: never Patient Tobacco Use Status: Never used Tobacco Smoked in Last 30 Days: No e-Cigarette/Vaping Use: Never Used Second Hand Smoke Exposure: No Use of substances other than those prescribed or required for medical reasons: No Advance Directives: No Advance Directives Information Provided: Yes service: No Current occupational status: unemployed and retired 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 I requested a stat read already on heparin. Patient is pending repeat troponin. They did call and tell me he has a DVT. I added on the hypercoagulation panel as well. I spent a long time explaining everything to the patient need for admission has a clotting cascade works in [place] unsure why he is having the PE and DVT I did explain that he will need admission he is currently requiring oxygen. We are still waiting for the official read from the radiologist. [id number] I did speak with [facility] who confirmed there is subsegmental PE with mild right heart strain I did speak with Dr. Chacon from Cardiology who agrees with workup I will admit to medicine Medications Administered Generic Name Dose Route Start Last Admin Trade Name Freq PRN Reason Stop Dose Admin Heparin Sodium/Sodium Chloride 25,000 unit in 250 mls @ 0 mls/hr 02/08/24 13:00 02/08/24 13:18 Heparin Sodium,Porcine/1/2ns IVCONT 11.35 units/kg/hr .Q0M MARK 10 mls/hr Administration Protocol Per Protocol Discontinued Medications Generic Name Dose Route Start Last Admin Trade Name Freq PRN Reason Stop Dose Admin Aspirin 324 mg 02/08/24 12:09 02/08/24 12:43 Aspirin 81 Mg Tab.Chew PO 02/08/24 12:10 324 mg ONCE ONE Administration Sodium Chloride 1,000 mls @ 999 mls/hr 02/08/24 12:15 02/08/24 12:44 Ns IV 02/08/24 13:15 999 mls/hr .Q1H1M MARK Administration Iohexol 100 ml 02/08/24 13:34 02/08/24 13:34 Iohexol 350 Mg/Ml 100 Ml Infus..Btl IV 02/08/24 13:35 65 ml ONCE ONE Administration Medical Decision Making Medical Decision Making MDM Narrative: I will add on D-dimer BNP send patient for a CTA patient has already had an ultrasound at this time. Differential Diagnosis Differential Diagnoses: The differential diagnosis associated with the presentation includes ACS NSTEMI dyspnea heart failure PE pneumonia Admission/Observation Consideration of admission/observation: Escalation of care including admission/observation considered Consult Healthcare Provider Management of the patient was discussed with: Hospitalist Lab Data [facility] Lab Attestation statement: I reviewed the patient's lab results. 02/08/24 12:51 02/08/24 10:37 Labs: Lab Results 02/08/24 02/08/24 Range/Units 10:37 12:51 WBC 5.6 5.5 (4.8-10.8) X10*3/uL RBC 4.87 4.69 (4.60-5.80) X10*6/uL Hgb 14.8 14.5 (14.0-18.0) g/dl Hct 43.3 41.9 L (42.0-52.0) % MCV 88.9 89.3 (80.0-98.0) fL MCH 30.4 30.9 (27.0-33.0) pg MCHC 34.2 34.6 (31.0-36.0) g/dl RDW 13.2 13.3 (11.0-16.0) % Plt Count 138 L 131 L (160-400) X10*3/uL MPV 9.5 9.7 (9.4-12.4) fL Immature Gran % (Auto) 0.2 (0.0-0.4) % Neut % (Auto) 69.5 (45-73) % Lymph % (Auto) 18.2 L (20-40) % Heard % (Auto) 10.3 (2-11) % Eos % (Auto) 1.3 (0-4) % Baso % (Auto) 0.5 (0-2) % Lymph # (Auto) 1.0 L (1.2-4.9) X10*3/uL Heard # (Auto) 0.6 (0.1-1.2) X10*3/uL Eos # (Auto) 0.1 (0.0-0.4) X10*3/uL Baso # (Auto) 0.0 (0.0-0.2) X10*3/uL Abs Immat Gran (auto) 0.01 (0.00-0.03) X10*3/uL Absolute Neuts (auto) 3.9 (2.0-8.3) x10*3/uL Absolute Nucleated RBC 0.000 0.000 (0.0-0.012) X10*3/uL Nucleated RBC % (auto) 0.0 0.0 (0.0-0.2) /100WBC PT 11.7 (11.1-13.3) SEC INR 1.0 (0.9-1.1) aPTT Heparin Protocol 26.9 L (53-77.9) SEC D-Dimer High Sensitivty 2720 NG/ML Sodium 139 (135-145) mmol/L Potassium 5.0 (3.3-5.1) mmol/L Chloride 103 (96-108) mmol/L Carbon Dioxide 28 (22-29) mmol/L Anion Gap 13 (12-20) BUN 22 H (9-16) mg/dL Creatinine 1.04 (0.5-1.4) mg/dL Estim Creat Clear Calc 83.9 Estimated GFR > 60 Random Glucose 100 (60-115) mg/dL Calcium 9.6 (8.4-10.2) mg/dL Total Bilirubin 0.3 (0.0-1.0) mg/dL AST 45 H (5-37) U/L ALT 33 (0-40) U/L Alkaline Phosphatase 115 (39-117) U/L Troponin I High Sens 185.2 H* (<3.5-35.0) ng/L B-Natriuretic Peptide 18 (<100) pg/mL Total Protein 7.8 (6.5-8.0) g/dL Albumin 4.6 (3.5-5.0) g/dL Influenza Type A (PCR) NEGATIVE (Negative) Influenza Type B (PCR) NEGATIVE (Negative) RSV RNA Qual (PCR) NEGATIVE (Negative) SARS-CoV-2 RNA (RT-PCR) NEGATIVE (Negative) Independent Interpretation I performed an independent interpretation of an: EKG Interpretation: Rate 85 normal sinus rhythm normal intervals no signs of ischemia no change from previous interpreted by me Radiology Impression Discussion of test interpretation with radiology: I have reviewed the radiologist's reading. External Record Review External record reviewed: Inpatient record and Office record Critical Care Time Critical Care Time Critical Care Time: Yes Total Critical Care Time: 50 Attestation: Patient seen immediately when I came in troponin was noted be elevated I spent 30 minutes explaining the elevated troponin as well as a PE DVT clotting cascade and need for heparin I did consult Cardiology as well as the hospitalist. I arranged for rapid reading the CTA and spoke with the radiologist as well Discharge Plan Discharge Clinical Impression: Pulmonary embolism, DVT (deep venous thrombosis), Hypoxia, Elevated troponin Patient Disposition: Admitted As Inpatient Prescriptions: No Action rosuvastatin 40 mg tablet 40 mg PO DAILY Qty: 90 3RF loratadine [Allergy Relief (loratadine)] 10 mg tablet 10 mg PO DAILY naproxen sodium [Aleve] 220 mg tablet 220 mg PO BID PRN phenytoin sodium extended 100 mg capsule PO Patient Comments: 2 in the am 2 at pm bisacodyl [Dulcolax (bisacodyl)] 5 mg tablet,delayed release (DR/EC) 20 mg PO ONCE 1 Days Qty: 4 0RF Rx Instructions: Day before procedure, prep day Take 4 tablets by mouth upon awakening followed by large glass of water polyethylene glycol 3350 [Miralax] 17 gram/dose powder 238 g PO ONCE PRN (Reason: laxative effect) 1 Days Qty: 238 0RF Rx Instructions: Take as directed by mouth the day before your procedure.
[2024-02-08] MEDS: Aspirin 81 MG TAB.CHEW 324 MG PO (12:43)
[2024-02-08] MEDS: 0.9 % Sodium Chloride 1,000 ML 999 ML IV (12:44)
[2024-02-08 12:53] VITALS: BMI 26.3
[2024-02-08 13:01] LABS: B Type Natriuretic Peptide 18 pg/mL (<100)
[2024-02-08 13:02] LABS: Hematocrit 41.9 % (42.0-52.0); Hemoglobin 14.5 g/dl (14.0-18.0); Mean Corpuscular HGB Conc 34.6 g/dl (31.0-36.0); Mean Corpuscular Hemoglobin 30.9 pg (27.0-33.0); Mean Corpuscular Volume 89.3 fL (80.0-98.0); Mean Platelet Volume 9.7 fL (9.4-12.4); Platelet Count 131 X10*3/uL (160-400); Red Blood Count 4.69 X10*6/uL (4.60-5.80); Red Cell Distribution Width 13.3 % (11.0-16.0); White Blood Count 5.5 X10*3/uL (4.8-10.8)
[2024-02-08 13:06] LABS: Prothrombin Time 11.7 SEC (11.1-13.3)
[2024-02-08 13:08] LABS: D Dimer High Sensitivity 2720 NG/ML
[2024-02-08 13:09] LABS: PTT Heparin Drip 26.9 SEC (53-77.9)
[2024-02-08] MEDS: Heparin Sodium,Porcine/1/2NS 25,000 UNIT/250 ML IV.SOLN 10 UNIT IVCONT (13:18)
--- NOTE | 2024-02-08 13:23 | PC.NURSE ---
pt is alert and oriented, skin pwd, respirations even and unlabored, ls clear, pt is reporting feeling sob with exertion and at rest/right calf pain and a funny feeling in the chest-but denies that feeling in the chest at this time/denies pain, pt is feeling nervous at this time, vs stable and normal sinus on the monitor.
[2024-02-08 13:29] VITALS: BP 126/82; PULSE 77; RESP 18; O2SAT 92
[2024-02-08] MEDS: iohexoL 350 MG/ML 100 ML INFUS..BTL IV (13:34)
[2024-02-08 13:35] VITALS: O2SAT 89
--- NOTE | 2024-02-08 13:38 | PC.NURSE ---
pt come back from ct, noticed that his oxygen keeps dipping down anywhere from 89-92% on room air, pt put on nasal cannula at 2l
--- NOTE | 2024-02-08 15:14 | PHA.MEDREC ---
Pharmacy Consult ? Medication Reconciliation Pharmacy has completed the medication reconciliation. Confirmed medication with patient .
--- NOTE | 2024-02-08 15:33 | PM.IMHP ---
History of Present Illness Date of Service: 02/08/24 Chief Complaint: Shortness of breath 58-year-old gentleman with past medical history significant for seizure disorder, hyperlipidemia status post resection of basal cell cancer from face and left shoulder presented to [facility] due to symptoms of shortness of breath that he noticed while 2 minutes on cross strainer tender, without associated chest pain, no lightheadedness or dizziness, he took a shower and went back on lower level but within 1-1/2 minute developed shortness of breath again therefore he stopped the exercise, he also noticed right leg pain 2 days ago and last night woke up twice from throbbing pain right leg , he denies any trauma or fall, he is very active does 2 -4 hours of daily exercise, denies prolonged immobility, no prior history of clots, no family history of clots in the emergency room he had an elevated D-dimer 2720, troponin 185.2, CTA chest showed bilateral pulmonary embolism segmental and subsegmental, with right heart strain pattern, also right femoral and posterior tibial vein DVT, patient started on IV heparin drip hypercoagulable workup sent in ED patient also noted drop in oxygenation to 89% on room air therefore being admitted to [facility] for acute hypoxic respiratory failure due to bilateral PE and DVT. Review of Systems Review of Systems: General no headache, no dizziness no fever chills. CVS no chest pain, no palpitation. Respiratory no cough, sob with exercise Gastrointestinal no nausea no vomiting, no abdominal pain Skin no rash no urgency, no frequency All other system reviewed and negative [facility] Medical History History of basal cell carcinoma Physical exam Thyroid nodule Dyspnea Allergic rhinitis Pure hypercholesterolemia Seizures Family History Father Myocardial infarction Uncontrolled persistent asthma Mother COPD (chronic obstructive pulmonary disease) Breast cancer Sister Asthma Brain tumor Maternal Aunt Breast cancer Surgical History History of surgery History of colonoscopy H/O basal cell carcinoma excision Social History Housing: Condominium Alcohol intake: never Patient Tobacco Use Status: Never used Tobacco Smoked in Last 30 Days: No e-Cigarette/Vaping Use: Never Used Second Hand Smoke Exposure: No Use of substances other than those prescribed or required for medical reasons: No Advance Directives: No Advance Directives Information Provided: Yes service: No Current occupational status: unemployed and retired 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 Cognitive needs: No Hearing needs: No Vision needs: No Meds Allergies Allergy/AdvReac Type Severity Reaction Status Date / Time No Known Allergies Allergy Verified 02/08/24 10:28 Active Medications: Current Medications Acetaminophen (Acetaminophen 325 Mg Tablet) 650 mg PO Q6H PRN PRN Reason: fever Aspirin (Aspirin 81 Mg Tab.Chew) 81 mg PO BEDTIME [facility] Heparin Sodium (Porcine) (Heparin Sodium,Porcine 5,000 Unit/Ml Vial) 3,500 unit 40 unit/kg (3500 unit) IVPUSH PROTOCOL BOLUS PRN; Protocol PRN Reason: 40 unit/kg - Heparin Protocol Heparin Sodium (Porcine) (Heparin Sodium,Porcine 5,000 Unit/Ml Vial) 7,000 unit 80 unit/kg (7000 unit) IVPUSH PROTOCOL BOLUS PRN; Protocol PRN Reason: 80 unit/kg - Heparin Protocol Heparin Sodium/Sodium Chloride (Heparin Sodium,Porcine/1/2ns) 25,000 unit in 250 mls @ 0 mls/hr IVCONT .Q0M [facility]; Protocol Last Admin: 02/08/24 13:18 Dose: 11.35 units/kg/hr, 10 mls/hr Loratadine (Loratadine 10 Mg Tablet) 10 mg PO DAILY [facility] Multivitamins/Vitamin C (Multivitamin Tablet) 1 tab PO DAILY [facility] Ondansetron HCl (Ondansetron Hcl 4 Mg/2 Ml Vial) 4 mg IVPUSH Q6H PRN PRN Reason: Nausea and Vomiting Phenytoin Sodium (Phenytoin Sodium Extended 100 Mg Capsule) 200 mg PO BID [facility] Sodium Chloride (0.9 % Sodium Chloride Flush 3 Ml Syringe) 3 ml IVFLUSH [facility] Home Medications Medication Instructions Recorded Confirmed Last Taken Type loratadine 10 mg tablet (Allergy 10 mg PO DAILY 10/20/20 02/08/24 02/08/24 History Relief (loratadine)) naproxen sodium 220 mg tablet 220 mg PO BID 10/20/20 02/08/24 02/08/24 History (Aleve) phenytoin sodium extended 100 mg 200 mg PO BID 07/06/22 02/08/24 02/08/24 History capsule aspirin 81 mg chewable tablet 81 mg PO BEDTIME 02/08/24 02/08/24 02/08/24 History multivitamin 1 tab PO DAILY 02/08/24 02/08/24 02/08/24 History Physical Exam Vital Signs and Narrative: Vital Signs: Last Vital Signs Temp 97.4 F 02/08/24 10:17 Pulse 77 02/08/24 13:29 Resp 18 02/08/24 13:29 BP 126/82 02/08/24 13:29 Pulse Ox 89 L 02/08/24 13:35 O2 Del Method Room Air 02/08/24 13:35 BMI result Body Mass Index 26.3 Const: Other: General awake alert x3 cough resting comfortably in no acute distress. Anicteric sclera Neck supple no JVD. CVS regular rate rhythm, Respiratory lungs clear to auscultation, no respiratory distress, no wheeze, no rhonchi. Gastrointestinal abdomen soft, non tender, bowel sounds audible. Extremities no edema. Right lower extremity no swelling, no homans Neuro nonfocal Skin no rash Psych appropriate affect Results Labs 02/08/24 12:51 02/08/24 10:37 Labs: Laboratory Results - last 24 hr 02/08/24 02/08/24 10:37 12:51 MCV 88.9 89.3 MCH 30.4 30.9 MCHC 34.2 34.6 RDW 13.2 13.3 Plt Count 138 L 131 L MPV 9.5 9.7 Immature Gran % (Auto) 0.2 Neut % (Auto) 69.5 Lymph % (Auto) 18.2 L Kane % (Auto) 10.3 Eos % (Auto) 1.3 Baso % (Auto) 0.5 Lymph # (Auto) 1.0 L Kane # (Auto) 0.6 Eos # (Auto) 0.1 Baso # (Auto) 0.0 Abs Immat Gran (auto) 0.01 Absolute Neuts (auto) 3.9 Absolute Nucleated RBC 0.000 0.000 Nucleated RBC % (auto) 0.0 0.0 PT 11.7 INR 1.0 aPTT Heparin Protocol 26.9 L D-Dimer High Sensitivty 2720 Anion Gap 13 Estim Creat Clear Calc 83.9 Estimated GFR > 60 Random Glucose 100 Calcium 9.6 Total Bilirubin 0.3 AST 45 H ALT 33 Alkaline Phosphatase 115 Troponin I High Sens 185.2 H* B-Natriuretic Peptide 18 Total Protein 7.8 Albumin 4.6 Influenza Type A (PCR) NEGATIVE Influenza Type B (PCR) NEGATIVE RSV RNA Qual (PCR) NEGATIVE SARS-CoV-2 RNA (RT-PCR) NEGATIVE Imaging Radiologist's Impressions: Impressions Venous Duplex 02/08/24 12:02 IMPRESSION: DVT present in the right femoral vein and posterior tibial veins. Chest CTA 02/08/24 13:35 IMPRESSION: Bilateral pulmonary emboli with evidence of right heart strain. VTE: positive. Assessment and Plan (1) Elevated troponin: Status: Acute (2) Hypoxia: Status: Acute (3) DVT (deep venous thrombosis): Status: Acute (4) Pulmonary embolism: Status: Acute Plan 58-year-old gentleman presented to [facility] due to shortness of breath while exercising along with 2 days of right lower extremity pain without acute injury or trauma diagnosed to have bilateral PE with right heart strain Right lower extremity DVT and elevated troponin be admitted to telemetry unit on IV heparin. Acute hypoxic respiratory failure due to acute bilateral pulmonary embolism and right lower extremity DVT Unprovoked DVT, history of COVID in September 2023, symptoms started acutely in last couple days Hypercoagulable workup sent follow labs IV heparin Follow echo if significant right heart strain pattern will obtain cardiology consultation Transitioned to [facility] once clinically stable Continue O2 support wean as tolerated not on home oxygen. Elevated troponin likely from demand, repeat troponin, check echo history of elevated cholesterol with last LDL [address] on Lipitor 80 continue aspirin. Seizure disorder continue Dilantin, seizure precautions. Hyperlipidemia on Crestor non formulary will place on Lipitor 80 mg. DVT prophylaxis IV heparin. Full code In my clinical judgment patient need to night inpatient hospitalization for management of acute bilateral PE or IV heparin drip requiring further testing and expert consultation. Quality Stroke Does the patient have a stroke diagnosis?: No VTE Prior VTE?: No VTE Risk Level:: Medical - moderate - high VTE Device Contraindication: Treatment Not Indicated VTE Drug Contraindication: N/A - Med Ordered
--- NOTE | 2024-02-08 16:00 | CA_ITS ---
Transthoracic Echocardiogram Patient (Last, First, Middle): Ajit Merchant J Gender: Male Date of : 1965 Age: 58 Procedure Date: 02/08/2024 Procedure Type: Transthoracic Echocardiogram Location: ER Height: 182.88 cm Weight: 88. kg BSA: 2.10 m2 Heart Rate: bpm BP: 126 / 82 mmHg Local Driver: MAE Referring MD: Criss Mai MD Symptoms: Right heart strain Study Quality: Adequate Conclusions: - Normal left ventricular size, thickness, systolic function, and wall motion. The visually estimated ejection fraction is between 55-60%. Diastolic function is normal for age. - Normal right ventricular cavity size and systolic function. - There is mild dilatation of the sinuses of Valsalva measuring 3.78 cm and mild dilatation of the ascending aorta measuring 4.00 cm. Findings Left Ventricle Normal left ventricular size, thickness, systolic function, and wall motion. The visually estimated ejection fraction is between 55-60%. Diastolic function is normal for age. Right Ventricle Normal right ventricular cavity size and systolic function. Atria The left atrium is mildly dilated. The right atrium is normal in size. Aortic Valve Normal aortic valve structure and function. There is no aortic valve stenosis. There is trace (trivial) aortic valve regurgitation. Mitral Valve The mitral valve appears normal. There is no mitral valve regurgitation. There is no mitral valve stenosis. Pulmonic Valve The pulmonic valve is normal. There is trace pulmonic valve regurgitation. Tricuspid Valve Normal tricuspid valve structure. There is trace tricuspid valve regurgitation. The right ventricular systolic pressure is 37 mmHg. Normal right atrial pressure. Mild pulmonary hypertension is present. Great Vessels There is mild dilatation of the sinuses of Valsalva measuring 3.78 cm and mild dilatation of the ascending aorta measuring 4.00 cm. Venous The inferior vena cava is normal in size and collapses greater than 50% with inspiration. Pericardium/Pleural There is no evidence of pericardial effusion. Prior Study Comparison No prior study available for comparison. Measurements 2D Linear Measurements IVSd: 1.03 0.6-0.9/0.6-1.0 cm LVIDd: 4.90 3.9-5.3/4.2-5.9 cm LVIDd Index: 2.33 2.4-3.2/2.2-3.1 cm/m2 LVIDs: 3.47 2.0-3.6 cm LVPWd: 0.68 0.7-1.1 cm LA Diam: 3.40 2.7-3.8/3.0-4.0 cm LAIDs Index: 1.62 1.5-2.3 cm/m2 LV Mass: 178.55 67-162/88-224 g LV Mass Index: 85.02 43-95/49-115 g/m2 LVOT Diam: 2.10 3.0+(-)1.3 cm 2D Systolic Function EF 4C: 66.30 >55% EF 2C: 63.20 >55% EF BiP: 63.40 >55% Mitral Valve MV Pk E: 0.46 MV PK A: 0.77 MV Decel Time: 206.00 E/A: 0.60 E'Lateral: 11.40 E'Medial: 7.40 E/E' Med: 6.20 E/E' Lat: 4.00 PHT: 60.00 MVA PHT: 3.67 Decel Beaver: 2.23 Aortic Valve AoV Pk Sumanth: 1.28 AoV Mn Sumanth: 0.85 AoV VTI: 0.23 AoV Pk Grad: 7.00 Aov Mn Grad: 3.00 CAR Cont.VTI: 2.64 LVOT LVOT Pk Sumanth: 0.97 LVOT Mn Sumanth: 0.60 LVOT VTI: 0.18 LVOT Pk Grad: 4.00 LVOT Mn Grad: 2.00 LVOT Diam: 2.10 LVOT Area: 3.46 Diastolic Function MV Pk E: 0.46 MV Pk A: 0.77 E/A: 0.60 E'Medial: 7.40 E/E' Med: 6.20 E' Laterial: 11.40 E/E' Lat: 4.00 Right Ventricle TAPSE (mm): 25.60 TVS' Sumanth: 13.80 Tricuspid Valve TR Pk Sumanth: 2.92 TR Pk Grad: 34.00 RA Press: 3.00 RVSP: 37.00 Great Vessels Aorta Sinus of Valsalva: 3.78 2.0-3.5 cm Ao Asc: 4.00 2.1-3.4 cm Updated in Other Vendor System with Status of Final Stu Chacon MD electronically signed on 02/08/2024 8:28:46 PM with status of Final
--- NOTE | 2024-02-08 16:17 | P.CONGS_ITS ---
History of Present Illness Consult details Consult date: 02/08/24 Reason for consult: other (dvt) Narrative: Very pleasant 58-year-old gentleman presents to the hospital with acute onset DVT. He is a very active gentleman and works out nearly 3-4 hours daily. He recalls exactly 2 days ago he started developing discomfort and pain in the right calf. Upon his workup today he was extremely short of breath and became quite concerned. He presented to the emergency room for evaluation. Was discovered to have DVT with PE. Was started on a heparin drip. He is relatively comfortable and is satting 95% on 2 L nasal cannula. No active discomfort at the current time. Review of Systems 2 Review of Systems: Yes all other systems are reviewed and are negative Constitutional: Constitutional: Reports no additional constitutional complaints ENT: Reports Normal hearing present Cardiovascular: Cardiovascular: Denies chest pain, Denies chest pain at rest, Denies chest pain with activity and Denies pedal edema Respiratory: Respiratory: Denies cough Gastrointestinal: Gastrointestinal: Denies abdominal pain Musculoskeletal: Musculoskeletal: Denies abnormal gait, Denies muscle cramps and Denies radiating pain into limb Integumentary/Breasts: Skin/Breast: Denies skin ulcer and Denies wounds Neurologic: Reports Normal hearing present and Denies abnormal gait Psychiatric: Psychiatric: Reports no additional psychiatric complaints PMFSH Past Medical History Medical History History of basal cell carcinoma Physical exam Thyroid nodule Dyspnea Allergic rhinitis Pure hypercholesterolemia Seizures Family History Family History Father Myocardial infarction Uncontrolled persistent asthma Mother COPD (chronic obstructive pulmonary disease) Breast cancer Sister Asthma Brain tumor Maternal Aunt Breast cancer Surgical History Surgical History History of surgery History of colonoscopy H/O basal cell carcinoma excision Social History Social History Housing: Condominium Alcohol intake: never Patient Tobacco Use Status: Never used Tobacco Smoked in Last 30 Days: No e-Cigarette/Vaping Use: Never Used Second Hand Smoke Exposure: No Use of substances other than those prescribed or required for medical reasons: No Advance Directives: No Advance Directives Information Provided: Yes service: No Current occupational status: unemployed and retired 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 Cognitive needs: No Hearing needs: No Vision needs: No Meds Allergies Allergy/AdvReac Type Severity Reaction Status Date / Time No Known Allergies Allergy Verified 02/08/24 10:28 Active Medications: Current Medications Acetaminophen (Acetaminophen 325 Mg Tablet) 650 mg PO Q6H PRN PRN Reason: fever Aspirin (Aspirin 81 Mg Tab.Chew) 81 mg PO BEDTIME [facility] Atorvastatin Calcium (Atorvastatin Calcium 80 Mg Tablet) 80 mg PO BEDTIME [facility] Heparin Sodium (Porcine) (Heparin Sodium,Porcine 5,000 Unit/Ml Vial) 3,500 unit 40 unit/kg (3500 unit) IVPUSH PROTOCOL BOLUS PRN; Protocol PRN Reason: 40 unit/kg - Heparin Protocol Heparin Sodium (Porcine) (Heparin Sodium,Porcine 5,000 Unit/Ml Vial) 7,000 unit 80 unit/kg (7000 unit) IVPUSH PROTOCOL BOLUS PRN; Protocol PRN Reason: 80 unit/kg - Heparin Protocol Heparin Sodium/Sodium Chloride (Heparin Sodium,Porcine/1/2ns) 25,000 unit in 250 mls @ 0 mls/hr IVCONT .Q0M [facility]; Protocol Last Admin: 02/08/24 13:18 Dose: 11.35 units/kg/hr, 10 mls/hr Loratadine (Loratadine 10 Mg Tablet) 10 mg PO DAILY [facility] Multivitamins/Vitamin C (Multivitamin Tablet) 1 tab PO DAILY [facility] Ondansetron HCl (Ondansetron Hcl 4 Mg/2 Ml Vial) 4 mg IVPUSH Q6H PRN PRN Reason: Nausea and Vomiting Phenytoin Sodium (Phenytoin Sodium Extended 100 Mg Capsule) 200 mg PO BID [facility] Sodium Chloride (0.9 % Sodium Chloride Flush 3 Ml Syringe) 3 ml IVFLUSH QSHIFT [facility] Home Medications Medication Instructions Recorded Confirmed Last Taken Type loratadine 10 mg tablet (Allergy 10 mg PO DAILY 10/20/20 02/08/24 02/08/24 History Relief (loratadine)) naproxen sodium 220 mg tablet 220 mg PO BID 10/20/20 02/08/24 02/08/24 History (Aleve) phenytoin sodium extended 100 mg 200 mg PO BID 07/06/22 02/08/24 02/08/24 History capsule aspirin 81 mg chewable tablet 81 mg PO BEDTIME 02/08/24 02/08/24 02/08/24 History multivitamin 1 tab PO DAILY 02/08/24 02/08/24 02/08/24 History Physical Exam 2 Vital Signs: Vital Signs: Last Vital Signs Temp 97.4 F 02/08/24 10:17 Pulse 77 02/08/24 13:29 Resp 18 02/08/24 13:29 BP 126/82 02/08/24 13:29 Pulse Ox 89 L 02/08/24 13:35 O2 Del Method Room Air 02/08/24 13:35 BMI result Body Mass Index 26.3 Const: General: cooperative, healthy appearing and comfortable O rientation/consciousness: oriented to person, oriented to place and oriented to time HEENT: Head: Yes normal to inspection Neck: Neck: Yes normal visual inspection Carotids: no bruits Chest: Chest palpation & inspection: normal inspection of the chest Resp: Effort & Inspection: normal respiratory effort and able to speak in complete sentences Auscultation: clear to auscultation bilaterally, no crackles, no rales, no rhonchi and no wheezes Cardio: Rate: regular rate Rhythm: regular rhythm Heart sounds: S1 normal heart sound present and S2 normal heart sound present Bruits: no carotid bruits Peripheral pulses: Peripheral pulses 2+ throughout GI: Inspection: Yes normal to inspection Skin: Wounds: no wounds Hair: normal Neuro: General: oriented to person, oriented to place and oriented to time Cranial nerves: Yes CN's II-XII intact bilaterally and Yes Normal hearing present Cognition (Neuro): normal cognition Motor exam (neuro): 5/5 motor strength present throughout Extrem: Other: venous exam: +2 edema right General: No clubbing, No cyanosis and Yes edema Psych: Appearance: grossly normal Mental Status: mental status grossly normal Speech and movement: Normal speech and movement present Results Labs 02/08/24 12:51 02/08/24 10:37 Labs: Abnormal lab results 02/08/24 02/08/24 Range/Units 10:37 12:51 Hct 41.9 L (42.0-52.0) % Plt Count 138 L 131 L (160-400) X10*3/uL Lymph % (Auto) 18.2 L (20-40) % Lymph # (Auto) 1.0 L (1.2-4.9) X10*3/uL aPTT Heparin Protocol 26.9 L (53-77.9) SEC BUN 22 H (9-16) mg/dL AST 45 H (5-37) U/L Troponin I High Sens 185.2 H* (<3.5-35.0) ng/L Short CBC 02/08/24 02/08/24 Range/Units 10:37 12:51 WBC 5.6 5.5 (4.8-10.8) X10*3/uL Hgb 14.8 14.5 (14.0-18.0) g/dl Hct 43.3 41.9 L (42.0-52.0) % Plt Count 138 L 131 L (160-400) X10*3/uL BMP 02/08/24 10:37 Sodium 139 Potassium 5.0 Chloride 103 Carbon Dioxide 28 BUN 22 H Creatinine 1.04 Calcium 9.6 Liver Function 02/08/24 Range/Units 10:37 Total Bilirubin 0.3 (0.0-1.0) mg/dL AST 45 H (5-37) U/L ALT 33 (0-40) U/L Alkaline Phosphatase 115 (39-117) U/L Albumin 4.6 (3.5-5.0) g/dL All other labs normal. Assessment and Plan (1) DVT (deep venous thrombosis): Qualifiers: DVT location: lower extremity Affected thrombotic vein of extremity: f emoral Chronicity: acute Laterality: right Qualified Code(s): I82.411 - Acute embolism and thrombosis of right femoral vein Status: Acute Plan In short patient has acute onset right lower extremity DVT. In addition he does have a PE which is subsegmental. Due to the location and acute nature of the clot would recommend right lower extremity mechanical venous thrombectomy. Risks benefits complications were discussed in detail with the patient. He agreed and would like to move forward. We will schedule for tomorrow. Procedures Date of Service Date of Service: 02/08/24
[2024-02-08 17:02] VITALS: BP 121/75; PULSE 84; RESP 20; O2SAT 92
[2024-02-08 19:53] LABS: Troponin-I High Sensitivity 139.9 ng/L (<3.5-35.0)
[2024-02-08 19:57] LABS: PTT Heparin Drip 37.9 SEC (53-77.9)
[2024-02-08] MEDS: Heparin Sodium,Porcine 5,000 UNIT/ML VIAL 3500 UNIT IVPUSH (20:31)
[2024-02-08] MEDS: Phenytoin Sodium Extended 100 MG CAPSULE 200 MG PO (20:35)
[2024-02-08 21:42] VITALS: BP 124/71; PULSE 77; RESP 18; TEMP 36.5; O2SAT 92
[2024-02-08 21:54] VITALS: BMI 26.2
[2024-02-08] MEDS: 0.9 % Sodium Chloride Flush 3 ML SYRINGE IVFLUSH (22:11)
[2024-02-08] MEDS: Aspirin 81 MG TAB.CHEW PO (22:11)
[2024-02-08 23:25] VITALS: BP 114/72; PULSE 68; RESP 18; TEMP 36.3; O2SAT 95
[2024-02-09] VITALS (9 sets, daily range): BP systolic 112–138; BP diastolic 56–81; PULSE 70–87; RESP 16–18; TEMP 36.1–36.9; O2SAT 92–96
[2024-02-09 04:06] LABS: PTT Heparin Drip 64.8 SEC (53-77.9)
[2024-02-09] MEDS: Multivitamin TABLET 1 TAB PO (08:00)
[2024-02-09] MEDS: Loratadine 10 MG TABLET PO (08:00)
[2024-02-09] MEDS: Phenytoin Sodium Extended 100 MG CAPSULE 200 MG PO ×2 (08:00→20:14)
[2024-02-09] MEDS: 0.9 % Sodium Chloride 1,000 ML 100 ML IVCONT ×2 (08:06→18:54)
[2024-02-09] MEDS: Heparin Sodium,Porcine/1/2NS 25,000 UNIT/250 ML IV.SOLN 11.76 UNIT IVCONT (08:06)
--- NOTE | 2024-02-09 09:23 | MHC.CM.PN ---
Pt self-care, lives at home with . Pt will drive himself home if able (car is in lot), vs his to transport. HCP completed, now on file. PCP: Dr. Keyona Carter
[2024-02-09 10:07] LABS: Hematocrit 43.6 % (42.0-52.0); Hemoglobin 14.7 g/dl (14.0-18.0); Mean Corpuscular HGB Conc 33.7 g/dl (31.0-36.0); Mean Corpuscular Hemoglobin 30.2 pg (27.0-33.0); Mean Corpuscular Volume 89.7 fL (80.0-98.0); Mean Platelet Volume 9.7 fL (9.4-12.4); Platelet Count 139 X10*3/uL (160-400); Red Blood Count 4.86 X10*6/uL (4.60-5.80); Red Cell Distribution Width 13.4 % (11.0-16.0); White Blood Count 5.1 X10*3/uL (4.8-10.8)
[2024-02-09 10:13] LABS: PTT Heparin Drip 45.2 SEC (53-77.9)
[2024-02-09 10:22] LABS: Anion Gap 12 (12-20); Blood Urea Nitrogen 21 mg/dL (9-16); Calcium 10.1 mg/dL (8.4-10.2); Carbon Dioxide 23 mmol/L (22-29); Chloride 108 mmol/L (96-108); Creatinine Clr Calc Pharmacy 83.1; Estimated Glomerular Filt Rate > 60; Glucose Random 97 mg/dL (60-115); Potassium 4.2 mmol/L (3.3-5.1); Sodium 139 mmol/L (135-145)
--- NOTE | 2024-02-09 10:40 | P.CNHO_ITS ---
Subjective - Subjective Chief complaint: Consult for: Pulmonary embolism. Right leg DVT. Patient: new to practice Consult date: 02/09/24 Requesting Physician: Pau Primary Care Provider: Keyona Carter MD Family Provider: MATTEO Finney Medical Summary: DIAGNOSIS: 1. PULMONARY EMBOLISM. 2. RIGHT LEG DVT. HPI - Consult Narrative Reason for consult: Consult for: Pulmonary embolism. Right leg DVT. 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 He took a shower and went back on lower level but within 1-1/2 minute developed shortness of breath again therefore he stopped the exercise. he has noticed right leg pain 2 days ago and last night woke up twice from throbbing pain right leg. He denies any trauma or fall, he is very active does 2 -4 hours of daily exercise, denies prolonged immobility, no prior history of clots. No family history of clots. In the emergency room he had an elevated D-dimer 2720, troponin 185.2, Patient noted to have a drop in oxygenation to 89% on room air. CTA chest showed: Bilateral pulmonary embolism segmental and subsegmental, with right heart strain pattern. Ultrasound of the legs revealed: Right femoral and posterior tibial vein DVT. He was started on IV heparin drip. Hypercoagulable workup sent in ED. He was admitted to [facility] for acute hypoxic respiratory failure due to bilateral PE and DVT. Review of Systems 2 Review of Systems: Lately he has noted that he is more tired than usual. General no headache, no dizziness no fever chills. CVS no chest pain, no palpitation. He came in with shortness of breath on exertion. Respiratory no cough, Gastrointestinal no nausea no vomiting, no abdominal pain Skin no rash no urgency, no frequency Denies muscle spasm no joint pain. He denies depression. All other system reviewed and negative [facility] Medical History: past medical history significant for seizure disorder, hyperlipidemia status post resection of basal cell cancer from face and left shoulder History of basal cell carcinoma Physical exam Thyroid nodule Dyspnea Allergic rhinitis Pure hypercholesterolemia Seizures Family History: Father due to heart problems. Mom of breast cancer. Two sisters of breast cancer. A cousin 34 of breast cancer. Grandfather had pancreatic cancer. SOCIAL HISTORY: He retired from the [employer] department. He is to a man. They have no children. He denies smoking now. He quit alcohol few years ago. Review of Systems - Constitutional Reports system reviewed and no additional complaints, except as documented - Eyes Reports system reviewed and no additional complaints, except as documented - ENT Reports system reviewed and no additional complaints, except as documented - Cardiovascular Reports system reviewed and no additional complaints, except as documented - Respiratory Reports no additional respiratory complaints - Gastrointestinal Reports system reviewed and no additional complaints, except as documented - Genitourinary Genitourinary: Reports no additional male genitourinary complaints - Musculoskeletal Reports system reviewed and no additional complaints, except as documented - Integumentary/Breasts Skin/Breast: Reports no additional skin complaints - Neurologic Reports hearing normal, Denies abnormal gait - Psychiatric Reports system reviewed and no additional complaints, except as documented - Endocrine Reports no additional endocrine complaints - Hematologic/Lymphatic Reports system reviewed and no additional complaints, except as documented - Allergic/Immunologic Reports system reviewed and no additional complaints, except as documented Oncology Screenings - ECOG Performance Status ECOG Performance Status: 0 [facility] Medical History: Medical History (Last Updated 02/14/24 @ 08:13 by Aye Johnson RN) Allergic rhinitis Current use of anticoagulant therapy Dyspnea History of basal cell carcinoma Physical exam Pure hypercholesterolemia Seizures Thyroid nodule Functional capacity: independent ambulation Patient : No Family History: Family History (Last Reviewed 02/12/24 @ 13:55 by KARSON Franco) Father Myocardial infarction Uncontrolled persistent asthma Mother COPD (chronic obstructive pulmonary disease) Breast cancer Sister Asthma Brain tumor Maternal Aunt Breast cancer Surgical History: Surgical History (Last Reviewed 02/12/24 @ 13:55 by KARSON Franco) H/O basal cell carcinoma excision History of colonoscopy History of surgery Social History: Social History (Last Reviewed 02/12/24 @ 13:55 by KARSON Franco) Living Situation History: Household Members: Spouse Housing: Condominium Housing Other:: lives with spouse Do you presently have visiting nurse or other home services: No Tobacco History: e-Cigarette/Vaping Use: Never Used Second Hand Smoke Exposure: No Occupation Assessmet: service: No Current occupational status: unemployed Current occupational status: retired 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 Current occupational 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: No Current occupational 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 Home Medications and Allergies Current Medications: Current Medications Acetaminophen (Acetaminophen 325 Mg Tablet) 650 mg PO Q6H PRN PRN Reason: fever Aspirin (Aspirin 81 Mg Tab.Chew) 81 mg PO BEDTIME [facility] Last Admin: 02/08/24 22:11 Dose: 81 mg Atorvastatin Calcium (Atorvastatin Calcium 80 Mg Tablet) 80 mg PO BEDTIME [facility] Last Admin: 02/08/24 22:13 Dose: Not Given Heparin Sodium (Porcine) (Heparin Sodium,Porcine 5,000 Unit/Ml Vial) 3,500 unit 40 unit/kg (3500 unit) IVPUSH PROTOCOL BOLUS PRN; Protocol PRN Reason: 40 unit/kg - Heparin Protocol Last Admin: 02/08/24 20:31 Dose: 3,500 unit Heparin Sodium (Porcine) (Heparin Sodium,Porcine 5,000 Unit/Ml Vial) 7,000 unit 80 unit/kg (7000 unit) IVPUSH PROTOCOL BOLUS PRN; Protocol PRN Reason: 80 unit/kg - Heparin Protocol Heparin Sodium/Sodium Chloride (Heparin Sodium,Porcine/1/2ns) 25,000 unit in 250 mls @ 0 mls/hr IVCONT .Q0M [facility]; Protocol Last Admin: 02/09/24 08:06 Dose: 13.35 units/kg/hr, 11.76 mls/hr Sodium Chloride (Ns) 1,000 mls @ 100 mls/hr IVCONT .Q10H [facility] Last Admin: 02/09/24 08:06 Dose: 100 mls/hr Loratadine (Loratadine 10 Mg Tablet) 10 mg PO DAILY [facility] Last Admin: 02/09/24 08:00 Dose: 10 mg Multivitamins/Vitamin C (Multivitamin Tablet) 1 tab PO DAILY [facility] Last Admin: 02/09/24 08:00 Dose: 1 tab Ondansetron HCl (Ondansetron Hcl 4 Mg/2 Ml Vial) 4 mg IVPUSH Q6H PRN PRN Reason: Nausea and Vomiting Phenytoin Sodium (Phenytoin Sodium Extended 100 Mg Capsule) 200 mg PO BID [facility] Last Admin: 02/09/24 08:00 Dose: 200 mg Sodium Chloride (0.9 % Sodium Chloride Flush 3 Ml Syringe) 3 ml IVFLUSH QSHIFT [facility] Last Admin: 02/09/24 07:36 Dose: Not Given Home Medications ?Medication ?Instructions ?Recorded ?Confirmed ?Type loratadine 10 mg tablet (Allergy 10 mg PO DAILY 10/20/20 02/14/24 History Relief (loratadine)) phenytoin sodium extended 100 mg 200 mg PO BID 07/06/22 02/14/24 History capsule aspirin 81 mg chewable tablet 81 mg PO BEDTIME 02/08/24 02/14/24 History multivitamin 1 tab PO DAILY 02/08/24 02/14/24 History Allergies Allergy/AdvReac Type Severity Reaction Status Date / Time No Known Allergies Allergy Verified 02/14/24 08:10 Physical Exam Vital signs: Vital Signs Temp 98.4 F 02/09/24 07:19 Pulse 71 02/09/24 07:19 Resp 18 02/09/24 07:19 BP 120/76 02/09/24 07:19 Pulse Ox 94 02/09/24 07:19 O2 Del Method Nasal Cannula 02/09/24 07:19 O2 Flow Rate 1.5 02/09/24 07:19 Intake & Output 02/08/24 02/09/24 02/09/24 18:59 06:59 18:59 Intake Total 1000 / 1072.167 72.167 / 1072.167 136.22 / 136.22 Output Total 900 / 900 Balance 1000 / 172.167 -827.833 / 172.167 136.22 / 136.22 Urine Output (Average ml/kg/hr) 0.86 0.86 Intake: Intake, IV Amount 1000 / 1072.167 72.167 / 1072.167 136.22 / 136.22 0.9 % Sodium Chloride 1,000 ml 1000 / 1000 @ 999 mls/hr IV .Q1H1M [facility] Rx#: [id number] Heparin Sodium,Porcine/1/2NS 25 72.167 / 72.167 136.22 / 136.22 ,000 unit In 250 ml @ Per Protocol IVCONT .Q0M [facility] Rx#: [id number] Output: Output, Urine Amount 900 / 900 Other: NPO Yes Last Bowel Movement 02/08/24 Weight 88.1 kg 87.7 kg [place] Weight in Grams [id number] Weight 87.7 kg - Constitutional Present: mild distress Hem/Onc Consult Result - Labs CBC & Chem 7: 02/10/24 06:32 02/09/24 09:51 Labs: Short CBC 02/08/24 02/08/24 02/09/24 Range/Units 10:37 12:51 09:51 WBC 5.6 5.5 5.1 (4.8-10.8) X10*3/uL Hgb 14.8 14.5 14.7 (14.0-18.0) g/dl Hct 43.3 41.9 L 43.6 (42.0-52.0) % Plt Count 138 L 131 L 139 L (160-400) X10*3/uL BMP 02/08/24 02/09/24 10:37 09:51 Sodium 139 139 Potassium 5.0 4.2 Chloride 103 108 Carbon Dioxide 28 23 BUN 22 H 21 H Creatinine 1.04 1.05 Calcium 9.6 10.1 Liver Function 02/08/24 Range/Units 10:37 Total Bilirubin 0.3 (0.0-1.0) mg/dL AST 45 H (5-37) U/L ALT 33 (0-40) U/L Alkaline Phosphatase 115 (39-117) U/L Albumin 4.6 (3.5-5.0) g/dL Assessment and Plan Patient Active problem list reviewed?: Yes (1) Pulmonary embolism Status: Acute Assessment and plan: 58-year-old gentleman presented to [facility] due to shortness of breath while exercising along with 2 days of right lower extremity pain without acute injury or trauma diagnosed to have bilateral PE with right heart strain Right lower extremity DVT. Involving the femoral and posterior tibial veins. Ultrasound of the left leg is negative for DVT. In addition he has an elevated troponin. His symptoms started acutely in last couple days. Unprovoked DVT, history of COVID in September 2023. Acute hypoxic respiratory failure due to acute bilateral pulmonary embolism and right lower extremity DVT. Continue O2 support, to be weaned as tolerated. He underwent thrombectomy today by Dr. Henriquez. Percutaneous transluminal venous mechanical thrombectomy. Vena cavogram demonstrated thrombus in the distal vena cava along the end attire iliofemoral system down into the popliteal vein. Completion vena cavogram demonstrated resolution of clot. Conclusion: Successful mechanical clot removal. Patient has started to feel better. PLAN: Hypercoagulable workup has been sent. He has been maintained on IV heparin overnight. He will be switched over to Eliquis over the next 24/48 hours. Follow echo if significant right heart strain pattern. Thank. you for the consult, I will follow along with you, CC: Matteo Finney - Time Spent With Patient Time Spent with Patient (in minutes): 30
--- NOTE | 2024-02-09 10:46 | PC.NURSE ---
per Md Garciau do not bolus pt with heparin. can continue heparin drip.
--- NOTE | 2024-02-09 11:36 | PC.NURSE ---
per dr. cartagena patient did not need to be clipped/prepped.
--- NOTE | 2024-02-09 12:38 | HO.PM.IMPN ---
Subjective Subjective Date of Service: 02/09/24 Interval History: seen and examined this morning follow up for DVT, PE no sob at this time, no chest pain plan for thrombectomy RLE DVT today Review of Systems Review of Systems: Yes all other systems are reviewed and are negative Constitutional Constitutional: Denies chills and Denies fever(s) Cardiovascular Cardiovascular: Denies chest pain, Denies palpitations and Denies dyspnea Respiratory Respiratory: Denies cough and Denies dyspnea Endocrine Endocrine: Denies palpitations Physical Exam Vital Signs: Vital Signs: Last Vital Signs Temp 98.3 F 02/09/24 11:00 Pulse 75 02/09/24 11:00 Resp 18 02/09/24 11:00 BP 132/81 02/09/24 11:00 Pulse Ox 95 02/09/24 11:00 O2 Del Method Nasal Cannula 02/09/24 11:00 O2 Flow Rate 2 02/09/24 11:00 BMI result Body Mass Index 26.2 Const: General: cooperative, comfortable, no acute distress, alert and awake Nutritional Appearance: average body habitus Orientation/consciousness: patient oriented x3 Resp: Effort & Inspection: normal respiratory effort, able to speak in complete sentences, no respiratory distress and no use of accessory muscles Cardio: Rate: regular rate GI: Inspection: No distended Palpation (GI): Soft to palpation and nontender Neuro: General: patient oriented x3, moves all extremities and CN's II-XI intact bilaterally Extrem: Other: no calf tenderness or erythema General: Yes no pedal edema Objective Data Active Medications Acetaminophen (Acetaminophen 325 Mg Tablet) 650 mg PO Q6H PRN PRN Reason: fever Aspirin (Aspirin 81 Mg Tab.Chew) 81 mg PO BEDTIME [facility] Last Admin: 02/08/24 22:11 Dose: 81 mg Documented By: NICOLETTE Atorvastatin Calcium (Atorvastatin Calcium 80 Mg Tablet) 80 mg PO BEDTIME [facility] Last Admin: 02/08/24 22:13 Dose: Not Given Documented By: NICOLETTE Non-Admin Reason: Patient Refused Heparin Sodium (Porcine) (Heparin Sodium,Porcine 5,000 Unit/Ml Vial) 3,500 unit 40 unit/kg (3500 unit) IVPUSH PROTOCOL BOLUS PRN; Protocol PRN Reason: 40 unit/kg - Heparin Protocol Last Admin: 02/08/24 20:31 Dose: 3,500 unit Documented By: BASILIO Heparin Sodium (Porcine) (Heparin Sodium,Porcine 5,000 Unit/Ml Vial) 7,000 unit 80 unit/kg (7000 unit) IVPUSH PROTOCOL BOLUS PRN; Protocol PRN Reason: 80 unit/kg - Heparin Protocol Heparin Sodium/Sodium Chloride (Heparin Sodium,Porcine/1/2ns) 25,000 unit in 250 mls @ 0 mls/hr IVCONT .Q0M [facility]; Protocol Last Titration: 02/09/24 10:43 Dose: 15.35 units/kg/hr, 13.52 mls/hr Documented By: ENRICO Co-signed By: TRICIA Sodium Chloride (Ns) 1,000 mls @ 100 mls/hr IVCONT .Q10H [facility] Last Admin: 02/09/24 08:06 Dose: 100 mls/hr Documented By: ENRICO Loratadine (Loratadine 10 Mg Tablet) 10 mg PO DAILY [facility] Last Admin: 02/09/24 08:00 Dose: 10 mg Documented By: ENRICO Multivitamins/Vitamin C (Multivitamin Tablet) 1 tab PO DAILY [facility] Last Admin: 02/09/24 08:00 Dose: 1 tab Documented By: ENRICO Ondansetron HCl (Ondansetron Hcl 4 Mg/2 Ml Vial) 4 mg IVPUSH Q6H PRN PRN Reason: Nausea and Vomiting Phenytoin Sodium (Phenytoin Sodium Extended 100 Mg Capsule) 200 mg PO BID [facility] Last Admin: 02/09/24 08:00 Dose: 200 mg Documented By: ENRICO Sodium Chloride (0.9 % Sodium Chloride Flush 3 Ml Syringe) 3 ml IVFLUSH QSHIFT [facility] Last Admin: 02/09/24 07:36 Dose: Not Given Documented By: ENRICO Non-Admin Reason: See Note Labs 02/09/24 09:51 02/09/24 09:51 Labs: Laboratory Results - last 24 hr 02/08/24 02/08/24 02/08/24 10:37 12:51 18:52 MCV 89.3 MCH 30.9 MCHC 34.6 RDW 13.3 Plt Count 131 L MPV 9.7 Absolute Nucleated RBC 0.000 Nucleated RBC % (auto) 0.0 PT 11.7 INR 1.0 aPTT Heparin Protocol 26.9 L D-Dimer High Sensitivty 2720 LA PTT Screen Cancelled LA Thrombin Time Cancelled dRVV Screen Cancelled dRVVT Confirm Interp Cancelled dRVVT Mixing Study Cancelled dRVVT Mix Interpret Cancelled Hexagon Phase Neutraliz Cancelled Lupus Anticoag Interp Cancelled Protein C Antigen Cancelled Protein C Activity Cancelled Protein S Activity Cancelled Total Protein S Ag Cancelled Free Protein S Antigen Cancelled Antithrombin III Ag Cancelled Factor V Leiden Cancelled Factor V Leiden Interp Cancelled Anion Gap Estim Creat Clear Calc Estimated GFR Random Glucose Calcium Troponin I High Sens 139.9 H* B-Natriuretic Peptide 18 Prothrombin [id number] Mut Cancelled Prothrombin Mut Interp Cancelled 02/08/24 02/09/24 02/09/24 19:34 03:51 09:51 MCV 89.7 MCH 30.2 MCHC 33.7 RDW 13.4 Plt Count 139 L MPV 9.7 Absolute Nucleated RBC 0.000 Nucleated RBC % (auto) 0.0 PT 12.0 INR 1.0 aPTT Heparin Protocol 37.9 L D 64.8 D 45.2 L D D-Dimer High Sensitivty LA PTT Screen LA Thrombin Time dRVV Screen dRVVT Confirm Interp dRVVT Mixing Study dRVVT Mix Interpret Hexagon Phase Neutraliz Lupus Anticoag Interp Protein C Antigen Protein C Activity Protein S Activity Total Protein S Ag Free Protein S Antigen Antithrombin III Ag Factor V Leiden Factor V Leiden Interp Anion Gap 12 Estim Creat Clear Calc 83.1 Estimated GFR > 60 Random Glucose 97 Calcium 10.1 Troponin I High Sens B-Natriuretic Peptide Prothrombin [id number] Mut Prothrombin Mut Interp Assessment and Plan (1) DVT (deep venous thrombosis): Status: Acute (2) Pulmonary embolism: Status: Acute Plan This is a 58-year-old gentleman presented due to shortness of breath while exercising along with 2 days of right lower extremity pain without acute injury or trauma diagnosed to have bilateral PE with right heart strain due to Right lower extremity DVT and elevated troponin Acute hypoxic respiratory failure due to acute bilateral pulmonary embolism and right lower extremity DVT Unprovoked DVT, history of COVID in September 2023, symptoms started acutely two days prior to admission Hypercoagulable workup sent in ED, follow labs continue IV heparin drip seen by vascular surgery - plan for thrombectomy right DVT today 02/08 echo with no heart strain Likely transition to Eliis once clinically stable hematology consult pending Continue O2 support wean as tolerated not on home oxygen. Elevated troponin likely from demand, repeat troponin flat no evidence of heart strain on echo history of elevated cholesterol with last LDL 126 continue statin, continue aspirin. Seizure disorder continue Dilantin, seizure precautions. Hyperlipidemia on Crestor non formulary will place on Lipitor 80 mg. DVT prophylaxis IV heparin. Full code In my clinical judgment patient need to night inpatient hospitalization for management of acute bilateral PE or IV heparin drip requiring further testing and expert consultation. Quality Stroke Does the patient have a stroke diagnosis?: No VTE Prior VTE?: No VTE Risk Level:: Medical - moderate - high VTE Device Contraindication: Treatment Not Indicated VTE Drug Contraindication: N/A - Med Ordered
--- NOTE | 2024-02-09 13:56 | W.PM.OPN ---
Operative Note Operative Note Date of Service: 02/09/24 Narrative: Operative note by [facility] Preoperative diagnosis: Deep venous thrombosis of right lower extremity Postoperative diagnosis: Same Procedure: 1 Ultrasound-guided right popliteal vein access 2. Inferior vena cavogram 3. Percutaneous transluminal venous mechanical thrombectomy (86974) 4. Radiologic super visual and interpretation Surgeon:Gurvinder Henriquez M.D. Programming Intern: None Anesthesia: Local with moderate conscious sedation. Total intra service moderate sedation time was 66 minutes. I monitored the patient's level of consciousness and physiologic status continuously throughout the procedure Specimen: None Drains: None Estimated blood loss: 50 mL Implant: None Indications: 58-year-old gentleman with acute onset right lower extremity DVT. He also developed a pulmonary embolism. He now presents for mechanical venous thrombectomy. The patient has signed the informed consent after reviewing risks, complications, benefits, and alternatives previously discussed with the patient. The patient was given the opportunity to ask any additional questions or voice any concerns. All questions were answered to the patient's satisfaction. Procedure in detail: Patient was brought to the Angiography suite prior to which a time-out was called for patient identification and site verification. The patient was placed in a prone position. Bilateral popliteal fossas were prepped out. We first access the right popliteal vein under ultrasound guidance. We then placed a percutaneous 4 [place] sheath. We were then able to traverse the clot with a Glidewire Advantage 035 wire. We brought in a trail Blazer catheter to confirmed true lumen. At this time 7000 units of heparin was administered. After 5 minutes of circulation time we then dilated up the tract. The clot triever over the wire system was then brought into position. We placed the clot triever sheath and exposed the self expanding Nitinol mesh funnel to facilitate clot removal for large-bore side port rapid aspiration. Once this was accomplished we then advanced over the wire the clot triever catheter with the coring element and braided collection bag. This was brought into the inferior vena cava up past this occlusion and extracted back. We did 4 sequential passes. The main angle of the catheter was placed at the 12:00 o'clock, 03:00 o'clock, 06:00 o'clock, and 09:00 o'clock positions. After each subsequent pass the clot was removed and it was flushed clear and we then brought it in again through this area. Completion venogram demonstrated an excellent result. We subsequently removed catheter wire in sheath. Direct pressure was held for 10 minutes. Sterile dressing was applied. Patient was brought to the recovery room with stable vitals. Interpretation of films: 1. Ultrasound demonstrates appropriate popliteal vein puncture. 2. Vena cavogram demonstrated thrombus in the distal vena cava along the end attire iliofemoral system down into the popliteal vein. 3. Completion vena cavogram demonstrated resolution of clot. Conclusion: 1. Successful mechanical clot removal. 2. Anticoagulation status: Resume heparin drip in 4 hours. Tomorrow may start oral anticoagulation. This note is constructed using voice recognition software. While every effort has been made to ensure accuracy, bearing machine operator errors may have been included. Thank you for allowing me to participate in the care of your patient. Yours sincerely, Gurvinder Henriquez MD, FACS, R.P.V.I.
[2024-02-09] MEDS: Atorvastatin Calcium 80 MG TABLET PO (20:14)
[2024-02-09] MEDS: Aspirin 81 MG TAB.CHEW PO (20:14)
[2024-02-10] VITALS: BP 107/63; PULSE 70; RESP 20; TEMP 36.2; O2SAT 96
[2024-02-10] MEDS: Heparin Sodium,Porcine 5,000 UNIT/ML VIAL 3500 UNIT IVPUSH (00:33)
[2024-02-10 03:50] VITALS: BP 130/78; PULSE 78; RESP 20; TEMP 36.1; O2SAT 96
[2024-02-10] MEDS: 0.9 % Sodium Chloride 1,000 ML 100 ML IVCONT (04:19)
[2024-02-10 07:07] LABS: Hematocrit 37.3 % (42.0-52.0); Hemoglobin 12.9 g/dl (14.0-18.0); Mean Corpuscular HGB Conc 34.6 g/dl (31.0-36.0); Mean Corpuscular Volume 89.7 fL (80.0-98.0); Mean Platelet Volume 9.9 fL (9.4-12.4); Platelet Count 116 X10*3/uL (160-400); Red Blood Count 4.16 X10*6/uL (4.60-5.80); Red Cell Distribution Width 13.2 % (11.0-16.0)
[2024-02-10 07:40] LABS: PTT Heparin Drip 126.8 SEC (53-77.9)
[2024-02-10] MEDS: 0.9 % Sodium Chloride Flush 3 ML SYRINGE IVFLUSH (07:57)
[2024-02-10 08:00] VITALS: BP 119/84; PULSE 85; RESP 18; TEMP 37.1; O2SAT 94
[2024-02-10] MEDS: Phenytoin Sodium Extended 100 MG CAPSULE 200 MG PO (08:54)
[2024-02-10] MEDS: Loratadine 10 MG TABLET PO (08:54)
[2024-02-10] MEDS: Multivitamin TABLET 1 TAB PO (08:54)
[2024-02-10 10:06] LABS: Partial Thromboplastin Time 42.5 SEC (26.0-36.8)
--- NOTE | 2024-02-10 10:35 | PM.DS ---
DS: Providers Provider Date of Service: 02/10/24 Date of admission: 02/08/24 15:26 Primary care physician: Keyona Carter MD Consults: 02/09/24 07:45 Consult to Hematology / Oncology Routine Consulting Provider: Emily Dong Reason for consultation: RLE DVT, b/l PE Has provider been notified: No 02/09/24 15:53 Consult to Vascular Surgery Routine Consulting Provider: [facility] Reason for consultation: extensive dvt Has provider been notified: Yes DS: Diagnosis Discharge Diagnosis (1) Pulmonary embolism: Status: Acute DS: Summary Hospital Course Hospital Course: History and physical as per admitting provider. 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, without associated chest pain, no lightheadedness or dizziness, he took a shower and went back on lower level but within 1-1/2 minute developed shortness of breath again therefore he stopped the exercise, he also noticed right leg pain 2 days ago and last night woke up twice from throbbing pain right leg , he denies any trauma or fall, he is very active does 2 -4 hours of daily exercise, denies prolonged immobility, no prior history of clots, no family history of clots in the emergency room he had an elevated D-dimer 2720, troponin 185.2, CTA chest showed bilateral pulmonary embolism segmental and subsegmental, with right heart strain pattern, also right femoral and posterior tibial vein DVT, patient started on IV heparin drip hypercoagulable workup sent in ED patient also noted drop in oxygenation to 89% on room air therefore being admitted to [facility] for acute hypoxic respiratory failure due to bilateral PE and DVT. 58-year-old man treated for acute hypoxic respiratory failure secondary to acute bilateral pulmonary embolism and right lower extremity DVT. Unprovoked DVT. Started on IV heparin. Seen by vascular surgery and is status post thrombectomy for right DVT on 02/09/2024. Echocardiogram with no heart strain. Hematological workup started and patient should follow-up with Hematology outpatient. Plan is to transition patient to warfarin, due to patient being on Dilantin for seizures, and Lovenox bridge for 5 days. His sister works for the [facility]. He should check his INR in 3 days. Plan is to discharge patient. He is in agreement of this. Elevated troponin likely demand from pulmonary embolism. Continue statin and aspirin History of seizure disorder. No seizure during hospitalization. Continue Dilantin Hyperlipidemia. On Crestor Time Attestation Discharge Coordination Time (in mins): 40 Quality: Safe Use of Opioids Does Pt have an Active Cancer Diagnosis on the Problem List?: No Quality: Stroke Does the patient have a stroke diagnosis?: No Physical Exam Vital Signs: Vital Signs: Last Vital Signs Temp 98.7 F 02/10/24 08:00 Pulse 85 02/10/24 08:00 Resp 18 02/10/24 08:00 BP 119/84 02/10/24 08:00 Pulse Ox 94 02/10/24 08:00 O2 Del Method Room Air 02/10/24 08:00 O2 Flow Rate 3 02/09/24 13:55 BMI result Body Mass Index 26.2 Appearing in no acute distress head is normocephalic atraumatic eyes pupils are PERRLA sclera is anicteric mouth throat mucous membranes are intact and moist neck is supple no lymphadenopathy, no JVD noted lung sounds are clear to auscultation heart regular rate rhythm, clear S1, S2 positive bowel sounds, abdomen is soft, nontender neuro patient is alert x3, no focal deficits DS: Data Data Completed and Pending Labs on day of discharge: Laboratory Results - last 24 hr 02/09/24 02/10/24 02/10/24 22:59 06:32 09:42 WBC 6.0 RBC 4.16 L Hgb 12.9 L Hct 37.3 L MCV 89.7 MCH 31.0 MCHC 34.6 RDW 13.2 Plt Count 116 L MPV 9.9 Absolute Nucleated RBC 0.000 Nucleated RBC % (auto) 0.0 APTT 42.5 H aPTT Heparin Protocol 51.0 L 126.8 H* D Discharge Plan Discharge Anticipated Discharge Date/Time: 02/10/24 10:16 Patient Disposition: Home, Self-Care Discharge Diagnosis: Unprovoked pulmonary embolism Deep vein Thrombosis [place] [facility] [place] 3 days [phone] Referrals: Keyona Terrell MD [Primary Care Provider] - 1 Week Discharge Medications: New warfarin 5 mg tablet 5 mg PO DAILY Qty: 30 0RF enoxaparin [Lovenox] 80 mg/0.8 mL syringe 80 mg subcut Q12H 5 Days Qty: 8 0RF Continued rosuvastatin 40 mg tablet 40 mg PO DAILY Qty: 90 3RF aspirin 81 mg Tablet,Chewable 81 mg PO BEDTIME multivitamin Tablet 1 tab PO DAILY loratadine [Allergy Relief (loratadine)] 10 mg tablet 10 mg PO DAILY phenytoin sodium extended 100 mg capsule 200 mg PO BID Patient Comments: 2 in the am 2 at pm Discontinued naproxen sodium [Aleve] 220 mg tablet 220 mg PO BID Discharge Orders: Discharge Order (Routine); Ordered 02/10/24 Ordered By: Chetna Silva Diet: Advance to usual diet Activity on Discharge: As tolerated Stand Alone Forms: Patient Portal Discharge page Care Plan Goals: Take warfarin 5 mg daily for 3 days, Check INR in the Coumadin clinic on day 4 You will also need to bridge warfarin with lovenox to help increase your INR, you will be on the Lovenox for 5 days twice daily Health Concerns: Unprovoked pulmonary embolism Deep vein Thrombosis Plan of Treatment: Follow-up with primary care provider within one week. Avoid strenuous exercise until seen and cleared by your primary care provider. Walking is ok. Assessment: See discharge summary Discharge Date/Time: 02/10/24 13:18
--- NOTE | 2024-02-10 10:46 | MHC.CM.PN ---
Patient has been medically cleared for dc to home today, self care.
[2024-02-10] MEDS: Enoxaparin Sodium 80 MG/0.8 ML SYRINGE SUBCUT (11:40)
[2024-02-12 18:43] LABS: Homocysteine 9.1 umol/L (<11.4)
[2024-02-13 19:47] LABS: Cardiolipin IgG Ab <2.0 GPL-U/mL; Cardiolipin IgM Ab <2.0 MPL-U/mL
== END 2024-02-10 13:18 | disposition home or self-care (01) | DRG 180 ==
LOC: HO.ED 14:09 → HO.EDOVER 16:04 → HO.IMC 18:21
PROVIDERS: Physician Assistant Medical; Student in an Organized Health Care Education/Training Program; Surgery Vascular Surgery; Admitting Provider Hospitalist; Emergency Provider Student in an Organized Health Care Education/Training Program; PCP Internal Medicine; Visit Provider Nurse Practitioner Acute Care
PROC: 06CM3ZZ Extirpation of Matter from Right Femoral Vein, Percutaneous Approach (ICD-10-PCS; principal; 2024-02-09 11:30)
DX: I82.411 Acute embolism and thrombosis of right femoral vein (principal); I26.99 Other pulmonary embolism without acute cor pulmonale; J96.01 Acute respiratory failure with hypoxia; E78.5 Hyperlipidemia, unspecified; G40.909 Epilepsy, unspecified, not intractable, without status epilepticus; I82.441 Acute embolism and thrombosis of right tibial vein; I26.94 Multiple subsegmental thrombotic pulmonary emboli without acute cor pulmonale; Z20.822 Contact with and (suspected) exposure to COVID-19; Z79.82 Long term (current) use of aspirin; Z79.899 Other long term (current) drug therapy
CPT/HCPCS: 0241U; 36415; 37187; 71275; 76937; 80048; 80053; 83090; 83880; 84484; 85025; 85027; 85301; 85302; 85303; 85306; 85379; 85597; 85598; 85610; 85613; 85730; 86147; 93005; 93306; 93971; 99152; 99153; 99285; A4364; C1757; C1769; C1887; J1644; J1650; Q9957; Q9967

== ENCOUNTER → 2024-02-08 10:30 | Outpatient (BNV) | payer OTHER, SELFPAY | PROVIDERS: Admitting Provider Hospitalist; Emergency Provider Student in an Organized Health Care Education/Training Program; PCP Internal Medicine; Visit Provider Internal Medicine Cardiovascular Disease | DX: I71.21 Aneurysm of the ascending aorta, without rupture (principal) | CPT/HCPCS: 93010; 93306 ==

== ENCOUNTER → 2024-02-08 10:41 | Outpatient (BNV) | payer OTHER, SELFPAY | PROVIDERS: Emergency Provider Student in an Organized Health Care Education/Training Program; PCP Internal Medicine; Visit Provider Hospitalist | DX: I26.99 Other pulmonary embolism without acute cor pulmonale (principal) | CPT/HCPCS: 99223; 99233; 99239 ==

== ENCOUNTER → 2024-02-08 15:26 | Outpatient (BNV) | payer OTHER, SELFPAY | PROVIDERS: Admitting Provider Hospitalist; Emergency Provider Student in an Organized Health Care Education/Training Program; PCP Internal Medicine; Visit Provider Surgery Vascular Surgery | DX: I82.401 Acute embolism and thrombosis of unspecified deep veins of right lower extremity (principal) | CPT/HCPCS: 37187; 76937; 99222 ==

== ENCOUNTER → 2024-02-08 15:26 | Outpatient (BNV) | payer OTHER, SELFPAY | PROVIDERS: Admitting Provider Hospitalist; Emergency Provider Student in an Organized Health Care Education/Training Program; PCP Internal Medicine; Visit Provider Internal Medicine Medical Oncology | DX: I26.99 Other pulmonary embolism without acute cor pulmonale (principal) | CPT/HCPCS: 99222 ==

== ENCOUNTER 2024-02-12 10:09 | Emergency (ER) | payer OTHER, SELFPAY ==
--- NOTE | ~2024-02-12 | CT_ITS ---
EXAMINATION: CT angio head neck CLINICAL INFORMATION: Bilateral pulmonary emboli and DVT. Evaluate for thrombosis. COMPARISON: Brain MRI 12/08/2015. TECHNIQUE: County Health Officer images were obtained. A CT angiogram of the head and neck was performed in the arterial phase after the intravenous administration of 50 mL Omnipaque 350. Pre and delayed postcontrast images of the head were also obtained. 3D images were processed on an independent workstation under concurrent supervision. Arterial stenoses are measured in accordance with NASCET criteria or similar method if applicable. This CT examination was performed using dose optimization techniques as appropriate, including one or more of the following: Automated exposure control, iterative reconstruction, and adjustment of technique factors (mA and/or kVp) according to patient size (this includes techniques or standardized protocols for targeted exams where dose is matched to indication/reason for exam). Fleischner Society criteria for the followup of incidental pulmonary nodules was implemented if appropriate. Total exam dose-length product 2345 mGy-cm FINDINGS: Head: There is no acute intracranial hemorrhage or abnormal extra-axial collection. Postcontrast images reveal no abnormal intracranial mass or enhancement. No intracranial mass effect or midline shift. Lateral and third ventricles are normal. No hydrocephalus. Wright-white matter differentiation is preserved and there is no evidence of acute territorial infarct. The calvarium and skull base are intact. Mastoid air cells and middle ear cavities are well aerated. Mild to moderate paranasal sinus disease primarily affecting the alveolar recesses of the maxillary sinuses. Globes and orbits are grossly symmetric. CT angiogram neck: The aortic arch apex is normal. Origins of the major aortic branches are widely patent. Common carotid arteries and the carotid bifurcations are normal. No stenosis of the extracranial internal carotid arteries. The cervical segments of vertebral arteries as well as their origins are patent. CT angiogram head: Intracranial carotid arteries are normal. Intradural vertebral artery segments and basilar artery are patent. Anterior, middle, and posterior cerebral artery complexes are normal. No intracranial large vessel occlusion. No identifiable aneurysm or high flow vascular lesion. Other: Soft tissues of the neck including the thyroid gland are normal. There are no pathologically enlarged cervical lymph nodes. No mediastinal or axillary adenopathy is visualized within the [id number] of this examination. Lung apices are clear. CT/CT angio head neck IMPRESSION: Unremarkable CT angiogram of the head and neck in that there is no stenosis of the cervical carotid or vertebral arteries. No intracranial large vessel occlusion. No evidence of acute territorial infarct or hemorrhage. No abnormal intracranial mass or enhancement.
[2024-02-12 10:12] VITALS: BP 147/89; PULSE 85; RESP 20; TEMP 36.4; O2SAT 98; BMI 25.8
--- NOTE | 2024-02-12 10:27 | ED_ITS ---
HPI - General Adult General Chief complaint: General Medical Stated complaint: Head/neck pain recently admitted Time Seen by Provider: 02/12/24 10:21 Source: patient Mode of arrival: ambulatory Limitations: no limitations History of Present Illness HPI narrative: 58 year old male with pmhx significant for serizure disorder, HDL, s/p resection of basal cell cancer from face and left shoulder presents to the ED for evaluation of right sided head pain x3 days. Admits to speaking with his sister who works at the coumadin clinic this morning and after mentioning his symptoms, she encouraged him to come to the ED to rule out further clot. Denies head pain however endorses shock like sensation along the right side of his head. Denies vision chanes, dizziness, balance issues, cough, hemoptysis, chest pain, SOB. Of note, patient was admitted to [facility] ED on 02/08/24 for two nights for acute hypoxic respiratory failure after receiving a diagnosis of bilateral unprovoked pulmonary embolisms and right lower extremity DVT. He was placed on heparin and discharged home 2 days ago on Lovenox bridge to warfarin. He admits that he missed his Lovenox injection this morning as he dropped it on his bathroom tile and the needle broke. Related Data Home Medications Medication Instructions Recorded Confirmed loratadine 10 mg tablet (Allergy 10 mg PO DAILY 10/20/20 02/08/24 Relief (loratadine)) phenytoin sodium extended 100 mg 200 mg PO BID 07/06/22 02/08/24 capsule aspirin 81 mg chewable tablet 81 mg PO BEDTIME 02/08/24 02/08/24 multivitamin 1 tab PO DAILY 02/08/24 02/08/24 Previous Rx's Medication Instructions Recorded rosuvastatin 40 mg tablet 40 mg PO DAILY #90 tabs 03/30/23 enoxaparin 80 mg/0.8 mL 80 mg (0.8 mL) subcut Q12H 5 days 02/10/24 subcutaneous syringe (Lovenox) #8 mL warfarin 5 mg tablet 5 mg PO DAILY #30 tabs 02/10/24 Allergies Allergy/AdvReac Type Severity Reaction Status Date / Time No Known Allergies Allergy Verified 02/09/24 10:39 Review of Systems 2 Review of Systems: Constitutional: No fever, chills, fatigue, night sweats, weight changes ENT/Mouth: No ear pain, hearing loss, nasal congestion, sinus pain, rhinorrhea, sore throat Eyes: No eye pain, swelling, redness, vision changes, discharge Cardio: No chest pain, palpitations, GORDON, orthopnea, peripheral edema Pulm: No SOB, cough, sputum, wheezing, dyspnea, hemoptysis GI: No nausea, vomiting, hematemesis, abdominal pain, diarrhea, constipation, hematochezia, melena : No irregular bleeding, dysuria, frequency, urgency, hesitancy, hematuria, flank pain, urinary flow changes, urinary incontinence or retention MSK: No back pain, neck pain, joint pain, myalgias Skin: No lesions, rashes Neuro: No weakness, numbness, paresthesias, LOC, dizziness, +headache Psych: No anxiety/panic, depression, SI/HI, AH/VH All other systems reviewed and are negative. [facility] Past Medical History Attestation statement: The following information was validated with the patient. Source: old records reviewed and nursing notes reviewed Medical History History of basal cell carcinoma Physical exam Thyroid nodule Dyspnea Allergic rhinitis Pure hypercholesterolemia Seizures Surgical History History of surgery History of colonoscopy H/O basal cell carcinoma excision Family History Family History Father Myocardial infarction Uncontrolled persistent asthma Mother COPD (chronic obstructive pulmonary disease) Breast cancer Sister Asthma Brain tumor Maternal Aunt Breast cancer Social History Social History Household Members: Spouse Housing: Condominium Do you presently have visiting nurse or other home services: No Alcohol intake: never Patient Tobacco Use Status: Never used Tobacco e-Cigarette/Vaping Use: Never Used Second Hand Smoke Exposure: No service: No Current occupational status: unemployed and retired 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 Cognitive needs: No Hearing needs: No Vision needs: No Physical Exam ED Vital Signs: Vital Signs - 24 hr 02/12/24 10:12 02/12/24 12:21 02/12/24 12:27 Temperature 97.6 F 97.6 F 98.5 F Pulse Rate 85 76 77 Respiratory Rate 20 14 14 Blood Pressure 147/89 H 124/88 134/83 Pulse Oximetry 98 77 L 97 Oxygen Delivery Method Room Air Room Air Room Air BMI result Body Mass Index 25.8 Vital signs stable, satting 98% on room air Const General: cooperative, healthy appearing, comfortable and no acute distress Nutritional Appearance: average body habitus Orientation/consciousness: patient oriented x3 Limitations: no limitations HENMT Other: + non tender to palpation over the right side of the skull. no palpable deformity. + moderate amount of cerumen in the right eac Head: Yes normal to inspection, Yes No palpable skull fracture present, Yes normocephalic, Yes atraumatic, No scalp tenderness and No Temporal artery tenderness present Ears: hearing grossly normal bilaterally, external ears normal, TM's normal bilaterally, EAC's normal, mastoids normal and no periauricular adenopathy Eyes General: appearance normal, both eyes and all related structures Conjunctivae: conjunctivae normal Sclerae: sclerae normal Pupils: Equal, round and reactive pupils present Neck Other: + no carotid bruits bilaterally Neck: Yes normal visual inspection, Yes full ROM, Yes no lymphadenopathy and Yes no JVD Chest Chest palpation & inspection: normal inspection of the chest and normal palpation of entire chest wall Resp Effort & Inspection: normal respiratory effort and able to speak in complete sentences Auscultation: clear to auscultation bilaterally Cardio Other: + or JVD or peripheral edema Rate: regular rate Rhythm: regular rhythm GI Inspection: Yes normal to inspection Back/Spine/Pelvis Other: No midline spinous tenderness or step off deformity. No paraspinal muscle tenderness. Skin General skin exam: no rashes or lesions noted Neuro Other: Strength 5/5 intact throughout.? No saddle anesthesia.? Sensation intact to light touch.? Neurovascular intact distally.? General: patient oriented x3 and gait normal Cranial nerves: Yes Equal, round and reactive pupils present Course Course Course Narrative: 3178-- My attending, Dr. Vaughan, has also examined patient. There is low suspicion for dissection or carotid occlusion however this cannot be rule out > CTA head/neck ordered. CBC showing normocytic anemia with stable H&H. No leukocytosis or left shift. Coags WNL. Chemistry without acute electrolyte abnormality requiring intervention. Renal function WNL. CT angiogram head/neck does not demonstrate stenosis of the cervical carotid or vertebral arteries. There is no intracranial large vessel occasion. No evidence of acute territorial infarct or hemorrhage. There is no intracranial mass or enhancement. > No concern with acute clot or dissection at this time. Discussed work up results with patient who expresses relief. As he missed his dose of Lovenox this morning, this was administered here. He states that he has more injections at home to complete Lovenox bridge to warfarin. Additionally, he has an appointment at the [facility] clinic this week. Patient has remained stable throughout ED visit today. Discussed worrisome signs and symptoms and when to return to the ED. All questions answered at this time. Patient is agreeable with disposition and stable for discharge. Medications Administered Discontinued Medications Generic Name Dose Route Start Last Admin Trade Name Freq PRN Reason Stop Dose Admin Enoxaparin Sodium 80 mg 02/12/24 12:25 02/12/24 13:13 Enoxaparin Sodium 80 Mg/0.8 Ml Syringe SUBCUT 02/12/24 12:26 80 mg ONCE ONE Administration Iohexol 70 ml 02/12/24 12:07 02/12/24 12:13 Iohexol 350 Mg/Ml 100 Ml Infus..Btl IV 02/12/24 12:08 70 ml ONCE ONE Administration Medical Decision Making Medical Decision Making MDM Narrative: 58 year old male with pmhx significant for serizure disorder, HDL, s/p resection of basal cell cancer from face and left shoulder presents to the ED for evaluation of right sided head pain x3 days. Vital signs stable, afebrile. He is nontoxic-appearing and in no acute distress. On exam, there is no scalp tenderness or palpable deformity. No palpable temporal artery. 2+ carotid pulses bilaterally. No carotid bruits. There is moderate amount of cerumen in the right EAC. No erythema or edema. TM wnl. No mastoid tenderness. No tenderness or palpable deformity noted over the TMJ. PERRLA. RRR. Lungs CTA bilaterally. No peripheral edema or JVD. Differential diagnosis includes headache, migraine headache, cerumen impaction. Lower suspicion for dissection, carotid occlusion, GCA, trigeminal neuralgia, mastoiditis, otitis media, otitis externa, malignant otitis externa, TMJ Plan for labs and CTA head/neck. Differential Diagnosis Differential Diagnoses: The differential diagnosis associated with the presentation includes as above. Admission/Observation Consideration of admission/observation: Escalation of care including admission/observation considered In this patient with recently diagnosed PEs and DVT presenting with left sided head pain, admisison was considered. Lab Data MDM Lab Attestation statement: I reviewed the patient's lab results. as above. 02/12/24 10:34 02/12/24 10:34 Labs: Lab Results 02/12/24 Range/Units 10:34 WBC 4.2 L (4.8-10.8) X10*3/uL RBC 4.42 L (4.60-5.80) X10*6/uL Hgb 13.6 L (14.0-18.0) g/dl Hct 38.9 L (42.0-52.0) % MCV 88.0 (80.0-98.0) fL MCH 30.8 (27.0-33.0) pg MCHC 35.0 (31.0-36.0) g/dl RDW 13.0 (11.0-16.0) % Plt Count 147 L D (160-400) X10*3/uL MPV 9.9 (9.4-12.4) fL Immature Gran % (Auto) 0.2 (0.0-0.4) % Neut % (Auto) 51.3 (45-73) % Lymph % (Auto) 31.9 (20-40) % [place] % (Auto) 12.1 H (2-11) % Eos % (Auto) 3.8 (0-4) % Baso % (Auto) 0.7 (0-2) % Lymph # (Auto) 1.4 (1.2-4.9) X10*3/uL [place] # (Auto) 0.5 (0.1-1.2) X10*3/uL Eos # (Auto) 0.2 (0.0-0.4) X10*3/uL Baso # (Auto) 0.0 (0.0-0.2) X10*3/uL Abs Immat Gran (auto) 0.01 (0.00-0.03) X10*3/uL Absolute Neuts (auto) 2.2 (2.0-8.3) x10*3/uL Absolute Nucleated RBC 0.000 (0.0-0.012) X10*3/uL Nucleated RBC % (auto) 0.0 (0.0-0.2) /100WBC PT 12.0 (11.1-13.3) SEC INR 1.0 (0.9-1.1) APTT 30.9 D (26.0-36.8) SEC Sodium 142 (135-145) mmol/L Potassium 4.2 (3.3-5.1) mmol/L Chloride 106 (96-108) mmol/L Carbon Dioxide 29 (22-29) mmol/L Anion Gap 11 L (12-20) BUN 13 (9-16) mg/dL Creatinine 1.10 (0.5-1.4) mg/dL Estim Creat Clear Calc 79.3 Estimated GFR > 60 Random Glucose 104 (60-115) mg/dL Calcium 9.7 (8.4-10.2) mg/dL Magnesium 2.0 (1.6-2.6) mg/dL Total Bilirubin 0.3 (0.0-1.0) mg/dL AST 26 (5-37) U/L ALT 22 (0-40) U/L Alkaline Phosphatase 120 H (39-117) U/L Total Protein 7.6 (6.5-8.0) g/dL Albumin 4.3 (3.5-5.0) g/dL Independent Interpretation I performed an independent interpretation of an: CT Scan Interpretation: I have personally reviewed CTA neck and agree with radiologist's interpretation. Radiology Impression Discussion of test interpretation with radiology: I have reviewed the radiologist's reading. Radiologist Impression: EXAMINATION: CT angio head neck CLINICAL INFORMATION: Bilateral pulmonary emboli and DVT. Evaluate for thrombosis. COMPARISON: Brain MRI 12/08/2015. TECHNIQUE: County Program Technician images were obtained. A CT angiogram of the head and neck was performed in the arterial phase after the intravenous administration of 50 mL Omnipaque 350. Pre and delayed postcontrast images of the head were also obtained. 3D images were processed on an independent workstation under concurrent supervision. Arterial stenoses are measured in accordance with NASCET criteria or similar method if applicable. This CT examination was performed using dose optimization techniques as appropriate, including one or more of the following: Automated exposure control, iterative reconstruction, and adjustment of technique factors (mA and/or kVp) according to patient size (this includes techniques or standardized protocols for targeted exams where dose is matched to indication/reason for exam). Fleischner Society criteria for the followup of incidental pulmonary nodules was implemented if appropriate. Total exam dose-length product 2345 mGy-cm FINDINGS: Head: There is no acute intracranial hemorrhage or abnormal extra-axial collection. Postcontrast images reveal no abnormal intracranial mass or enhancement. No intracranial mass effect or midline shift. Lateral and third ventricles are normal. No hydrocephalus. Wright-white matter differentiation is preserved and there is no evidence of acute territorial infarct. The calvarium and skull base are intact. Mastoid air cells and middle ear cavities are well aerated. Mild to moderate paranasal sinus disease primarily affecting the alveolar recesses of the maxillary sinuses. Globes and orbits are grossly symmetric. CT angiogram neck: The aortic arch apex is normal. Origins of the major aortic branches are widely patent. Common carotid arteries and the carotid bifurcations are normal. No stenosis of the extracranial internal carotid arteries. The cervical segments of vertebral arteries as well as their origins are patent. CT angiogram head: Intracranial carotid arteries are normal. Intradural vertebral artery segments and basilar artery are patent. Anterior, middle, and posterior cerebral artery complexes are normal. No intracranial large vessel occlusion. No identifiable aneurysm or high flow vascular lesion. Other: Soft tissues of the neck including the thyroid gland are normal. There are no pathologically enlarged cervical lymph nodes. No mediastinal or axillary adenopathy is visualized within the [id number] of this examination. Lung apices are clear. CT/CT angio head neck IMPRESSION: Unremarkable CT angiogram of the head and neck in that there is no stenosis of the cervical carotid or vertebral arteries. No intracranial large vessel occlusion. No evidence of acute territorial infarct or hemorrhage. No abnormal intracranial mass or enhancement. External Record Review External record reviewed: Inpatient record, Office record, Outpatient record, Prior outpatient labs, Prior outpatient radiology, Primary care record and Outside ED record Prescription Management I considered prescription management with: Pain Medication Critical Care Time Critical Care Time Critical Care Time: Yes Total Critical Care Time: 50 Attestation: Critical care time in the amount of 50 minutes has been provided to the patient in terms of direct patient care, frequent reevaluation, review and interpretation of medical data and results, and management of potentially life- threatening conditions. This is all outside of any medical procedures. Discharge Plan Discharge Clinical Impression: Headache Patient Disposition: Home, Self-Care Instructions: General Headache (ED) Additional Instructions: Your lab work today is reassuring. The CT angiogram of your head/neck did not show evidence of bleed, dissection or acute clot. Continue Lovenox bridge as directed. You may take tylenol at home for headache. Follow up with the coumadin clinic this week as planned. Return with new or worsening symptoms. In the case of an emergency call 911. Prescriptions: No Action rosuvastatin 40 mg tablet 40 mg PO DAILY Qty: 90 3RF aspirin 81 mg Tablet,Chewable 81 mg PO BEDTIME multivitamin Tablet 1 tab PO DAILY warfarin 5 mg tablet 5 mg PO DAILY Qty: 30 0RF enoxaparin [Lovenox] 80 mg/0.8 mL syringe 80 mg subcut Q12H 5 Days Qty: 8 0RF loratadine [Allergy Relief (loratadine)] 10 mg tablet 10 mg PO DAILY phenytoin sodium extended 100 mg capsule 200 mg PO BID Patient Comments: 2 in the am 2 at pm Referrals: Keyona Terrell MD [Primary Care Provider] - Interventions: ED Discharge Assessment Last Done: 02/12/24 14:01 Discharge Date/Time: 02/12/24 14:02
[2024-02-12 10:39] LABS: MANUAL DIFF FLAG NO
[2024-02-12 10:40] LABS: Basophils Percent Auto 0.7 % (0-2); Eosinophils Absolute Auto 0.2 X10*3/uL (0.0-0.4); Eosinophils Percent Auto 3.8 % (0-4); Hematocrit 38.9 % (42.0-52.0); Hemoglobin 13.6 g/dl (14.0-18.0); Imm Gran Abs Auto 0.01 X10*3/uL (0.00-0.03); Imm Gran Pct Auto 0.2 % (0.0-0.4); Lymphocytes Absolute Auto 1.4 X10*3/uL (1.2-4.9); Lymphocytes Percent Auto 31.9 % (20-40); Mean Corpuscular Hemoglobin 30.8 pg (27.0-33.0); Mean Platelet Volume 9.9 fL (9.4-12.4); Monocytes Absolute Auto 0.5 X10*3/uL (0.1-1.2); Monocytes Percent Auto 12.1 % (2-11); Neutrophils Absolute Auto 2.2 x10*3/uL (2.0-8.3); Neutrophils Percent Auto 51.3 % (45-73); Platelet Count 147 X10*3/uL (160-400); Red Blood Count 4.42 X10*6/uL (4.60-5.80); White Blood Count 4.2 X10*3/uL (4.8-10.8)
[2024-02-12 10:50] LABS: Partial Thromboplastin Time 30.9 SEC (26.0-36.8)
[2024-02-12 10:55] LABS: Alanine Aminotransferase 22 U/L (0-40); Albumin Level 4.3 g/dL (3.5-5.0); Alkaline Phosphatase 120 U/L (39-117); Anion Gap 11 (12-20); Aspartate Amino Transferase 26 U/L (5-37); Bilirubin Total 0.3 mg/dL (0.0-1.0); Blood Urea Nitrogen 13 mg/dL (9-16); Calcium 9.7 mg/dL (8.4-10.2); Carbon Dioxide 29 mmol/L (22-29); Chloride 106 mmol/L (96-108); Creatinine Clr Calc Pharmacy 79.3; Estimated Glomerular Filt Rate > 60; Glucose Random 104 mg/dL (60-115); Potassium 4.2 mmol/L (3.3-5.1); Sodium 142 mmol/L (135-145); Total Protein 7.6 g/dL (6.5-8.0)
--- NOTE | 2024-02-12 11:25 | PC.NURSE ---
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
--- NOTE | 2024-02-12 12:05 | MHC.EDTECH ---
500 mL of urine collected in urinal
[2024-02-12] MEDS: iohexoL 350 MG/ML 100 ML INFUS..BTL 70 ML IV (12:13)
[2024-02-12 12:21] VITALS: BP 124/88; PULSE 76; RESP 14; TEMP 36.4; O2SAT 97
[2024-02-12 12:27] VITALS: BP 134/83; PULSE 77; RESP 14; TEMP 36.9; O2SAT 97
--- NOTE | 2024-02-12 12:29 | MHC.EDTECH ---
pt voided 250 mL of urine into urinal
--- NOTE | 2024-02-12 12:58 | PC.NURSE ---
called pharmacy for [facility]
[2024-02-12] MEDS: Enoxaparin Sodium 80 MG/0.8 ML SYRINGE SUBCUT (13:13)
[2024-02-12 14:01] VITALS: BP 129/86; PULSE 74; RESP 16; TEMP 36.7; O2SAT 97
== END 2024-02-12 14:02 | disposition home or self-care (01) ==
PROVIDERS: Physician Assistant Medical; Emergency Provider Emergency Medicine; PCP Internal Medicine
DX: R51.9 Headache, unspecified (principal); M54.2 Cervicalgia; M25.512 Pain in left shoulder; Z86.718 Personal history of other venous thrombosis and embolism; Z86.711 Personal history of pulmonary embolism; Z79.01 Long term (current) use of anticoagulants; Z79.899 Other long term (current) drug therapy
CPT/HCPCS: 36415; 70496; 70498; 80053; 83735; 85025; 85610; 85730; 96372; 99284; J1650; Q9967

== ENCOUNTER 2024-02-14 08:01 | Outpatient (REF) | payer OTHER, SELFPAY ==
[2024-02-14 14:09] LABS: MANUAL DIFF FLAG NO
[2024-02-14 14:50] LABS: Basophils Percent Auto 0.4 % (0-2); Eosinophils Absolute Auto 0.1 X10*3/uL (0.0-0.4); Eosinophils Percent Auto 1.4 % (0-4); Hematocrit 40.2 % (42.0-52.0); Hemoglobin 13.7 g/dl (14.0-18.0); Imm Gran Abs Auto 0.02 X10*3/uL (0.00-0.03); Imm Gran Pct Auto 0.4 % (0.0-0.4); Lymphocytes Absolute Auto 1.4 X10*3/uL (1.2-4.9); Lymphocytes Percent Auto 27.8 % (20-40); Mean Corpuscular HGB Conc 34.1 g/dl (31.0-36.0); Mean Corpuscular Hemoglobin 30.2 pg (27.0-33.0); Mean Corpuscular Volume 88.7 fL (80.0-98.0); Mean Platelet Volume 9.9 fL (9.4-12.4); Monocytes Absolute Auto 0.5 X10*3/uL (0.1-1.2); Monocytes Percent Auto 10.4 % (2-11); Neutrophils Absolute Auto 3.1 x10*3/uL (2.0-8.3); Neutrophils Percent Auto 59.6 % (45-73); Platelet Count 201 X10*3/uL (160-400); Red Blood Count 4.53 X10*6/uL (4.60-5.80); Red Cell Distribution Width 13.2 % (11.0-16.0); White Blood Count 5.1 X10*3/uL (4.8-10.8)
== END 2024-02-14 08:02 | disposition home or self-care (01) ==
LOC: HO.LAB 08:01
PROVIDERS: Absent Provider Internal Medicine; PCP Internal Medicine; Visit Provider Internal Medicine
DX: I82.411 Acute embolism and thrombosis of right femoral vein (principal)
CPT/HCPCS: 36415; 85025; 85610; 99202

== ENCOUNTER 2024-02-14 08:01 | Outpatient (AMB) | payer OTHER, SELFPAY ==
[2024-02-14 08:26] LABS: Prothrombin Time Whole Bld POC 14.5 sec (11.1-13.5); ~PT, ~INR - Anti Coag Clinic 1.2 (0.9-1.1)
--- NOTE | 2024-02-14 09:46 | MHC.OFFVISCO ---
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 Allergies No Known Allergies Allergy (Verified 02/14/24 08:10) Medication List - Last Reconciled 02/14/24 by Aye Johnson RN aspirin 81 mg PO BEDTIME enoxaparin (Lovenox) 80 mg (0.8 mL) subcut Q12H 5 days loratadine (Allergy Relief (loratadine)) 10 mg PO DAILY multivitamin 1 tab PO DAILY phenytoin sodium extended 200 mg PO BID rosuvastatin 40 mg PO DAILY warfarin 5 mg PO DAILY Nursing Note Education completed with pt with good verbal understanding with education packet given to review INR 1.2 out of therapeutic range Initial Assessment to be reviewed and completed next visit Medications and supplements reviewed Patient status: on warfarin x 3 days today will be 4th day, denies any c/p or discomfort, A+Oxs3, resp easy and unlabored, breath sounds slightly diminished right upper lobe, lips and nails beds pink, still has low grade headache, able to do 20 min cardio vascular work out, no swelling in extremities, long hx of discomfort in left calf and ankle area- had venous doppler done Medications or supplements: cont lovenox Diet: good - eats a lot of greens Denies any signs and symptoms of bleeding or clotting or unusual bruising Bleeding, bruising, clotting discussed Nutritional guidance given: enc to avoid greens x 2 days and eat orange and reds Dose: 7.5mg x 1 day/ 5mg all other days F/U INR Date : 2 days ? Patient verbalizing understanding of instructions given. 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 Illness/Depression: No Surgeries: to discuss next visit Anti-Coag. 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 Able to state reason for taking Warfarin: Yes 2. Able to state Pain Management techniques: Yes 3. Able to state action of Warfarin.: Yes Able to state current dose, pill color, how and when Warfarin to be taken: Yes Able to identify signs of bleeding &/or clotting: Yes 4. Able to identify need to keep diet consistent in regard to vitamin K intake: Yes Able to state restriction on alcohol: Yes 5. Able to state need for compliance with PT/INR testing: Yes Describes rationale for carrying ID and wearing Medic Alert bracelet: Yes Patient instructed to monitor for excess bruising or signs/symptoms of clotting or bleeding: Yes 6. Able to state that there are drugs that interact with Warfin: Yes 7. Able to state the need to seek medical attention when illness/injury occur.: Yes Describes the need to avoid activities with high risk of injury: Yes 8. Able to state duration of treatment: Yes 9. Demonstrates understanding of notifying all providers of pending dental surgical, or other invasive procedures: Yes 10. Able to state Home Care instructions Questionnaires HAS-BLED Does the patient had uncontrolled Hypertension?: No Does the patient have renal disease?: No Does the patient have liver disease?: No Does the patient have a history of stroke?: No Has the patient had major bleeding or predisposition to bleeding?: Yes (on warfarin and lovenox) Does the patient have labile INRs?: Yes Is the patient over 65 years of age?: No Is the patient on medications that gives them a predisposition to bleeding?: Yes Does the patient use alcohol?: No HAS-BLED Score: 3 CHADSVASC Age: <65 Gender: Male Does the patient have a history of CHF?: No Does the patient have a history of Hypertension?: Yes Does the patient have a history of Stroke/TIA/Thromboembolism?: Yes (dvt / pe ? reason s/p covid 10/05 and injury to groin area 2 days prior clots ) Does the patient have a history of Vascular Disease (prior OH, PAD or aortic plaque)?: Yes (cholesterol) Does the patient have a history of Diabetes?: No CHADS VACS Score: 4 Jake Prediction Score Rsk VTE Active Cancer: No Previous VTE, excluding superficial vein thrombosis: No Reduced mobility: No Already known Thrombophilic Condition: Yes (to be determined DVT and PE ) With-in last month Trauma and/or Surgery: Yes Elderly 70 year or older: No Heart and/or Respiratory Failure: No Acute Myocardial infarction and/or Ischemic Stroke: No Acute Infection and/or Rheumatologic Disorder: No Obesity (BMI 30 or greater): No Ongoing Hormonal Treatment: No Score: 5 Jake Score less than 4; Low Risk of VTE Jake Score 4 or greater; High Risk of VTE Coding Level of Care Code New Patient Level 2 Diagnoses Current use of anticoagulant therapy Z79.01 Results AMB INR Fingerstick AMB INR Fingerstick 1.2 Last Edit by Aye Johnson RN on 02/14/24 08:21 manual entry Assessment & Plan Assessment & Plan (1) Current use of anticoagulant therapy: Code(s): 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
[2024-02-14 10:47] VITALS: BP 115/78; PULSE 72
== END 2024-02-14 10:50 | disposition home or self-care (01) ==
PROVIDERS: PCP Internal Medicine; Visit Provider Internal Medicine
DX: Z79.01 Long term (current) use of anticoagulants (principal)

== ENCOUNTER 2024-02-16 15:52 | Outpatient (AMB) | payer OTHER, SELFPAY ==
[2024-02-16 16:00] LABS: Prothrombin Time Whole Bld POC 16.2 sec (11.1-13.5); ~PT, ~INR - Anti Coag Clinic 1.4 (0.9-1.1)
--- NOTE | 2024-02-16 16:19 | MHC.OFFVISCO ---
Intake Intake Visit Reasons: Anticoagulation Allergies No Known Allergies Allergy (Verified 02/16/24 15:53) Medication List - Last Reconciled 02/16/24 by Mayela Connelly, ERICA aspirin 81 mg PO BEDTIME enoxaparin (Lovenox) 80 mg See Protocol subcut Q12H 5 days loratadine (Allergy Relief (loratadine)) 10 mg PO DAILY multivitamin 1 tab PO DAILY phenytoin sodium extended 200 mg PO BID rosuvastatin 40 mg PO DAILY warfarin 5 mg See Protocol PO DAILY Nursing Note INR 1.4??out of therapeutic range of 2-3 Medications and supplements reviewed: no changes Patient status: feels good, has resumed his daily exercise but not as much as usual Medications or supplements: no change Diet: having a difficult avoiding greens Denies any signs and symptoms of bleeding or clotting or unusual bruising Bleeding, bruising, clotting discussed Nutritional guidance given: to avoid greens until next visit visit Dose: 7.5mg today then 5mg the next 2 days then retest F/U INR Date : 02/19/24?? Patient verbalizing understanding of instructions given. 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
== END 2024-02-16 16:27 | disposition home or self-care (01) ==
LOC: HO.ACS 15:52
PROVIDERS: PCP Internal Medicine; Visit Provider Internal Medicine
DX: Z79.01 Long term (current) use of anticoagulants (principal)

== ENCOUNTER → 2024-02-16 15:52 | Outpatient (BNVA) | payer OTHER, SELFPAY | PROVIDERS: PCP Internal Medicine; Visit Provider Internal Medicine | DX: I82.411 Acute embolism and thrombosis of right femoral vein (principal); I26.99 Other pulmonary embolism without acute cor pulmonale; Z51.81 Encounter for therapeutic drug level monitoring; Z79.01 Long term (current) use of anticoagulants | CPT/HCPCS: 85610; 99211 ==

== ENCOUNTER 2024-02-19 08:15 | Outpatient (AMB) | payer OTHER, SELFPAY ==
[2024-02-19 08:34] LABS: Prothrombin Time Whole Bld POC 16.2 sec (11.1-13.5); ~PT, ~INR - Anti Coag Clinic 1.4 (0.9-1.1)
--- NOTE | 2024-02-19 08:43 | MHC.OFFVISCO ---
Intake Intake Visit Reasons: Anticoagulation Allergies No Known Allergies Allergy (Verified 02/19/24 08:22) Medication List - Last Reconciled 02/19/24 by Mayela Monique RN aspirin 81 mg PO BEDTIME enoxaparin (Lovenox) 80 mg See Protocol subcut Q12H 5 days loratadine (Allergy Relief (loratadine)) 10 mg PO DAILY multivitamin 1 tab PO DAILY phenytoin sodium extended 200 mg PO BID psyllium husk (aspartame) 3.4 gram/5.8 gram (Metamucil Sugar-Free (aspartame)) ea PO rosuvastatin 40 mg PO DAILY warfarin 5 mg See Protocol PO DAILY Nursing Note Amb to [facility] feeling well Medications and supplements reviewed, added to EMAR psyllium which he is has been on continues on Lovenox with associated bruising to abd, continues with large ecchymotic area posterior right knee leg No other changes in health, diet, medications, or supplements Denies any new Chest pain, SOB, or clotting INR: 1.4 below therapeutic range, same as last visit Nutritional guidance given: no heavy duty greens until next visit, continue with red food choices Dose: increase dosing to 7.5mg daily and lovenox (will need refill); F/U INR:02/21 Patient verbalizes understanding of instructions given with accurate read back/ teach back of dosing TC to enma Lang to reach nurses at 0845, call to corporate services manager [facility] and message left re critical INR, dose planning, continue lovenox and need for refill, F/U date pt to amb over to Drs office for refill Anti-Coag Initial Assessment Social Hx alcohol intake: never Alcohol intake frequency: does not drink Cardiovascular Hx: HTN 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 Illness/Depression: No Coding Level of Care Code Est Patient Level 1 Diagnoses Current use of anticoagulant therapy Z79.01 Time Spent (min) 15 Assessment & Plan Assessment & Plan (1) Current use of anticoagulant therapy: Code(s): Z79.01 - senior care (current) use of 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
== END 2024-02-19 08:55 | disposition home or self-care (01) ==
LOC: HO.ACS 08:15
PROVIDERS: PCP Internal Medicine; Visit Provider Internal Medicine
DX: Z79.01 Long term (current) use of anticoagulants (principal)

== ENCOUNTER → 2024-02-19 08:15 | Outpatient (BNVA) | payer OTHER, SELFPAY | PROVIDERS: PCP Internal Medicine; Visit Provider Internal Medicine | DX: I82.411 Acute embolism and thrombosis of right femoral vein (principal); I26.99 Other pulmonary embolism without acute cor pulmonale; Z51.81 Encounter for therapeutic drug level monitoring; Z79.01 Long term (current) use of anticoagulants | CPT/HCPCS: 85610; 99211 ==

== ENCOUNTER 2024-02-20 08:56 | Outpatient (REF) | payer OTHER, SELFPAY ==
[2024-02-20 10:20] LABS: Phenytoin Dilantin 9.3 ug/mL (10.0-20.0)
[2024-02-20 11:29] LABS: Alanine Aminotransferase 79 U/L (0-40); Albumin Level 4.4 g/dL (3.5-5.0); Alkaline Phosphatase 98 U/L (39-117); Anion Gap 12 (12-20); Aspartate Amino Transferase 66 U/L (5-37); Bilirubin Total 0.2 mg/dL (0.0-1.0); Blood Urea Nitrogen 17 mg/dL (9-16); Carbon Dioxide 27 mmol/L (22-29); Chloride 107 mmol/L (96-108); Cholesterol 209 mg/dL (<200); Estimated Glomerular Filt Rate > 60; Glucose Fasting 99 mg/dL (60-99); HDL Cholesterol 60 mg/dL (>40); LDL Cholesterol Calculated 133 mg/dL (<100); Potassium 4.3 mmol/L (3.3-5.1); Sodium 142 mmol/L (135-145); Total Protein 7.4 g/dL (6.5-8.0); Triglycerides 81 mg/dL (<150)
== END 2024-02-20 08:57 | disposition home or self-care (01) ==
LOC: HO.LAB 08:56
PROVIDERS: PCP Internal Medicine; Visit Provider Internal Medicine
DX: R56.9 Unspecified convulsions (principal); E78.5 Hyperlipidemia, unspecified
CPT/HCPCS: 36415; 80053; 80061; 80185

== ENCOUNTER 2024-02-22 08:41 | Outpatient (AMB) | payer OTHER, SELFPAY ==
--- NOTE | 2024-02-22 09:05 | MHC.OFFVISCO ---
Intake Intake Visit Reasons: Anticoagulation Allergies No Known Allergies Allergy (Verified 02/22/24 08:55) Medication List - Last Reconciled 02/22/24 by Sayra Fitch RN aspirin 81 mg PO BEDTIME enoxaparin (Lovenox) 80 mg See Protocol subcut Q12H 10 days loratadine (Allergy Relief (loratadine)) 10 mg PO DAILY multivitamin 1 tab PO DAILY phenytoin sodium extended 200 mg PO BID psyllium husk (aspartame) 3.4 gram/5.8 gram (Metamucil Sugar-Free (aspartame)) ea PO rosuvastatin 40 mg PO DAILY warfarin 10 mg See Protocol PO DAILY 30 days Nursing Note PT.DENIES ANY CP,SOB,DIET CHANGES OR SX OF BLEEDING. DILANTIN IN INCREASED TO 200MGM AM AND 300MGM IN THE PM. WARFARIN 7.5MGM TODAY AND RECHECK INR TOMORROW. TO CONTINUE LOVENOX BID TODAY. NO GREENS TODAY. WILL INCREASE REDS. GHOOD UNDERSTANDING VERB. 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 Illness/Depression: No Coding Level of Care Code Est Patient Level 1 Diagnoses Current use of anticoagulant therapy Z79.01 Results AMB INR Fingerstick AMB INR Fingerstick 1.9 Last Edit by Sayra Fitch RN on 02/22/24 09:06 Assessment & Plan Assessment & Plan (1) Current use of anticoagulant therapy: Code(s): Z79.01 - intermediate frame tender (current) use of 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
[2024-02-23 08:13] LABS: Prothrombin Time Whole Bld POC 22.9 sec (11.1-13.5); ~PT, ~INR - Anti Coag Clinic 1.9 (0.9-1.1)
== END 2024-02-22 09:15 | disposition home or self-care (01) ==
LOC: HO.ACS 08:41
PROVIDERS: PCP Internal Medicine; Visit Provider Internal Medicine
DX: Z79.01 Long term (current) use of anticoagulants (principal)

== ENCOUNTER → 2024-02-22 08:41 | Outpatient (BNVA) | payer OTHER, SELFPAY | PROVIDERS: PCP Internal Medicine; Visit Provider Internal Medicine | DX: I82.411 Acute embolism and thrombosis of right femoral vein (principal); I26.99 Other pulmonary embolism without acute cor pulmonale; Z51.81 Encounter for therapeutic drug level monitoring; Z79.01 Long term (current) use of anticoagulants | CPT/HCPCS: 85610; 99211 ==

== ENCOUNTER 2024-02-22 16:27 | Outpatient (AMB) | payer OTHER, SELFPAY ==
--- NOTE | 2024-02-22 16:37 | MHC.PC.OV ---
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 Accompanied by: Self / Same As Patient Allergies anesthesia Adverse Reaction (Uncoded 02/23/24 08:08) seizure Medication List - Last Reconciled 02/22/24 by Keyona Carter MD aspirin 81 mg PO BEDTIME enoxaparin (Lovenox) 80 mg See Protocol subcut Q12H 10 days loratadine (Allergy Relief (loratadine)) 10 mg PO DAILY multivitamin 1 tab PO DAILY phenytoin sodium extended 200 mg PO BID psyllium husk (aspartame) 3.4 gram/5.8 gram (Metamucil Sugar-Free (aspartame)) ea PO rosuvastatin 40 mg PO DAILY warfarin 10 mg See Protocol PO DAILY 30 days Tobacco use date assessed: 02/22/24 Dental Screening Dental Screen Date: 02/22/24 Did you have a dental visit in the last 12 months?: No Did you have a dental problem in the last 6 months where you did not have access to dental care?: No Was dental information given to patient?: Patient has dentist HPI TCM TCM Information Date of Discharge 02/10/24 Discharged From [facility] HPI Comments History of Present Illness Details This is a 58-year-old male with seizures and pure hypercholesterolemia that comes today as a hospital discharge follow-up with discharge date 02/10/2024 due to acute right DVT and pulmonary embolism bilateral. He went to the hospital because he was having shortness of breath after working out for 1 minute in the treadmill and having right leg pain 2 days before going to ER. Admitted 02/08/2024 and was started on heparin drip after having ultrasound venous duplex and CTA of the chest diagnosing DVT in right femoral and popliteal vein and bilateral pulmonary embolism. Echocardiogram was done while hospitalized and was normal. Vascular surgery was consulted and Dr. Henriquez perform percutaneous transluminal thrombectomy 02/09/2024. Ultrasound venous duplex what is repeated in right lower limb showing complete resolution of the clots. Currently on warfarin but still INR is not on goal and have Lovenox. Denies any active bleeding. Liver enzymes have increase and this will be repeated in a week. No jaundice noted. Also Dilantin was increased by Neurology due to low Dilantin level secondary to warfarin. Has not had a seizure in over 6 months. Cholesterol is elevated and for now was advised low-cholesterol diet. [facility] Medical History (Updated 02/23/24 @ 15:22 by Keyona Carter MD) DVT (deep venous thrombosis) Pulmonary embolism Current use of anticoagulant therapy History of basal cell carcinoma Physical exam Thyroid nodule Dyspnea Allergic rhinitis Pure hypercholesterolemia Seizures Surgical History History of surgery History of colonoscopy H/O basal cell carcinoma excision Family History Father Myocardial infarction Uncontrolled persistent asthma Mother COPD (chronic obstructive pulmonary disease) Breast cancer Sister Asthma Brain tumor Maternal Aunt Breast cancer Social History Household Members: [facility] Other:: lives with spouse Do you presently have visiting nurse or other home services: No Alcohol intake: never Patient Tobacco Use Status: Never used Tobacco e-Cigarette/Vaping Use: Never Used Second Hand Smoke Exposure: No service: No Current occupational status: unemployed and retired 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 1. Little interest or pleasure in doing things: not at all 2. Feeling down, depressed, or hopeless: several days 3. Trouble falling or staying asleep, or sleeping too much: not at all 4. Feeling tired or having little energy: not at all 5. Poor appetite or overeating: not at all 6. Feeling bad about yourself - or that you are a failure or have let yourself or your family down: not at all 7. Trouble concentrating on things, such as reading the newspaper or watching television: not at all 8. Moving or speaking so slowly that other people could have noticed. Or the opposite - being so fidgety or restless that you have been moving around a lot more than usual: not at all 9. Thoughts that you would be better off or of hurting yourself in some way: not at all Total score: 1 Depression Screening Interpretation: Negative Depression Screening Done: Yes 26180 - PHQ-9 Billing: Yes Source: Developed by Drs. Cheng Ingram, Patricio Bella and colleagues, with an educational dex from [employer]. Thrive Questionnaire Date Thrive assessed: 02/09/24 AUDIT C Alcohol Use Questionnaire (AUDIT-C) 1. How often do you have a drink containing alcohol?: Never Total Score: 0 NAHID-7 AMB Questionnaire NAHID-7 Date NAHID - 7 assessed: 02/22/24 Feeling nervous, anxious, or on edge: 1 = Several days Not being able to stop or control worryin = Not at all Worrying too much about different things: 0 = Not at all Trouble relaxin = Not at all Being so restless that it is hard to sit still: 0 = Not at all Becoming easily annoyed or irritable: 0 = Not at all Feeling afraid as if something awful might happen: 0 = Not at all Total NAHID-7 score (0-4 normal; 5-9 mild; 10-14 moderate; 15-21 severe): 1 Source: Developed by Drs. Cheng Ingram, Patricio Bella and colleagues, with an educational dex from [employer]. NAHID-7 Assessment Billing NAHID-7 Assessment Tool: NAHID-7 Assessment 77756 Review of Systems Const All systems reviewed & are unremarkable except as noted in HPI and below Eyes Reports no additional complaints, Denies change in vision and Denies other visual disturbances Card Denies chest pain at rest, Denies chest pain with activity, Denies edema, Denies irregular heart rhythm, Denies claudication, Denies dyspnea, Denies dyspnea on exertion, Denies orthopnea, Denies paroxysmal nocturnal dyspnea and Denies slow heart rate Resp Denies cough, Denies dyspnea and Denies dyspnea on exertion Physical exam (Primary Care) Vital Signs: Last Vital Signs BP 122/70 02/22/24 16:39 BMI result Body Mass Index 25.9 Tobacco/Smoking Status: Tobacco use Status Tobacco use date assessed 02/22/24 02/22/24 16:50 Patient Tobacco Use Status Never used Tobacco 02/22/24 16:50 e-Cigarette/Vaping Use Never Used 02/22/24 16:38 PHQ-9: PHQ-9 Score PHQ-9: Total score 1 02/22/24 17:00 Depression Screening Interpretation: Negative Thrive Assessment: Date of Thrive Assessment Date Thrive assessed 02/09/24 02/22/24 16:38 Resp Effort & Inspection: normal respiratory effort Auscultation: clear to auscultation bilaterally Cardio Jugular venous distension: no JVD Rate: regular rate Rhythm: regular rhythm Heart sounds: S1 normal heart sound present and S2 normal heart sound present Extrem General: Yes full ROM Results AMB INR Fingerstick AMB INR Fingerstick 1.9 Last Edit by Sayra Fitch RN on 02/22/24 09:06 Assessment and Plan Assessment & Plan (1) Hospital discharge follow-up: Code(s): Z09 - Encounter for follow-up examination after completed treatment for conditions other than malignant neoplasm Plan: Admitted 02/08/2024 due to acute DVT and pulmonary embolism. Had thrombectomy 02/09/2024. Was discharged 02/10/2024. Denies shortness of breath or right leg pain. (2) DVT (deep venous thrombosis): Code(s): I82.409 - Acute embolism and thrombosis of unspecified deep veins of unspecified lower extremity Qualifiers: Affected thrombotic vein of extremity: femoral Chronicity: acute DVT location: lower extremity Laterality: right Qualified Code(s): I82.411 - Acute embolism and thrombosis of right femoral vein Plan: INR goal from 2-3. Continue warfarin. Continue Lovenox on less INR is within goal. (3) Pulmonary embolism: Code(s): I26.99 - Other pulmonary embolism without acute cor pulmonale Plan: Continue warfarin. (4) Seizures: Code(s): R56.9 - Unspecified convulsions Plan: Dilantin was recently increased by Neurology. (5) Pure hypercholesterolemia: Code(s): E78.00 - Pure hypercholesterolemia, unspecified Plan: Continue statins. Start low-cholesterol diet. (6) Transaminitis: Code(s): R74.01 - Elevation of levels of liver transaminase levels Plan: Repeat liver enzymes in a week. Orders: Orders Liver Panel 02/22/24 R74.01 - Elevation of levels of liver transaminase levels Thyroid Stimulating Hormone 02/22/24 E04.1 - Nontoxic single thyroid nodule PSA,Total (Free>4and<10) 02/22/24 Z12.5 - Encounter for screening for malignant neoplasm of prostate Coding Level of Care Code TCM Mod MDM <= 14 Days Diagnoses Hospital discharge follow-up Z09 Acute deep vein thrombosis (DVT) of femoral vein of right lower extremity I82.411 Affected thrombotic vein of extremity: femoral Chronicity: acute DVT location: lower extremity Laterality: right Pulmonary embolism I26.99 Seizures R56.9 Pure hypercholesterolemia E78.00 Transaminitis R74.01 Additional Codes NAHID-7 Assessment Billing - NAHID-7 Assessment Tool: NAHID-7 Assessment 07354 ([id number]) Time Spent (min) 26
[2024-02-22 16:39] VITALS: BP 122/70; BMI 25.9
== END 2024-02-22 17:22 | disposition home or self-care (01) ==
PROVIDERS: Visit Provider Internal Medicine
DX: I82.411 Acute embolism and thrombosis of right femoral vein (principal); I26.99 Other pulmonary embolism without acute cor pulmonale; R56.9 Unspecified convulsions; E78.00 Pure hypercholesterolemia, unspecified; R74.01 Elevation of levels of liver transaminase levels
CPT/HCPCS: 99214

== ENCOUNTER 2024-02-23 07:59 | Outpatient (AMB) | payer OTHER, SELFPAY ==
[2024-02-23 08:14] LABS: Prothrombin Time Whole Bld POC 26.6 sec (11.1-13.5); ~PT, ~INR - Anti Coag Clinic 2.2 (0.9-1.1)
--- NOTE | 2024-02-23 08:25 | MHC.OFFVISCO ---
Intake Intake Visit Reasons: Anticoagulation Allergies anesthesia Adverse Reaction (Uncoded 02/23/24 08:08) seizure Medication List - Last Reconciled 02/23/24 by Aye Johnson RN aspirin 81 mg PO BEDTIME enoxaparin (Lovenox) 80 mg See Protocol subcut Q12H 10 days loratadine (Allergy Relief (loratadine)) 10 mg PO DAILY multivitamin 1 tab PO DAILY phenytoin sodium extended 200 mg PO BID psyllium husk (aspartame) 3.4 gram/5.8 gram (Metamucil Sugar-Free (aspartame)) ea PO rosuvastatin 40 mg PO DAILY warfarin 10 mg See Protocol PO DAILY 30 days Nursing Note INR: 2.2 in therapeutic range Medications and supplements reviewed No changes in health, diet, medications, or supplements, Denies any signs and symptoms of bleeding or bruising or clotting. 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
== END 2024-02-23 08:33 | disposition home or self-care (01) ==
LOC: HO.ACS 07:59
PROVIDERS: PCP Internal Medicine; Visit Provider Internal Medicine
DX: Z79.01 Long term (current) use of anticoagulants (principal)

== ENCOUNTER → 2024-02-23 07:59 | Outpatient (BNVA) | payer OTHER, SELFPAY | PROVIDERS: PCP Internal Medicine; Visit Provider Internal Medicine | DX: I82.411 Acute embolism and thrombosis of right femoral vein (principal); I26.99 Other pulmonary embolism without acute cor pulmonale; Z51.81 Encounter for therapeutic drug level monitoring; Z79.01 Long term (current) use of anticoagulants | CPT/HCPCS: 85610; 99211 ==

== ENCOUNTER 2024-02-27 09:17 | Outpatient (AMB) | payer OTHER, SELFPAY ==
[2024-02-27 09:47] LABS: Prothrombin Time Whole Bld POC 20.6 sec (11.1-13.5); ~PT, ~INR - Anti Coag Clinic 1.7 (0.9-1.1)
--- NOTE | 2024-02-27 10:06 | MHC.OFFVISCO ---
Intake Intake Visit Reasons: Anticoagulation Allergies enoxaparin Adverse Reaction (Mild, Verified 02/27/24 09:38) Headache anesthesia Adverse Reaction (Uncoded 02/23/24 08:08) seizure Medication List - Last Reconciled 02/27/24 by Mayela Monique RN aspirin 81 mg PO BEDTIME loratadine (Allergy Relief (loratadine)) 10 mg PO DAILY multivitamin 1 tab PO DAILY phenytoin sodium extended 200 mg PO BID psyllium husk (aspartame) 3.4 gram/5.8 gram (Metamucil Sugar-Free (aspartame)) ea PO rosuvastatin 40 mg PO DAILY warfarin 10 mg See Protocol PO DAILY 30 days Nursing Note Amb to ACS feeling well Medications and supplements reviewed, lovenox DCd after last visit, sts he was having headaches while on the lovenox but no more since it was stopped- recorded now as an adverse reaction- sts headache wasn't bad 2/10 tolerable but present No other changes in health, diet, medications, or supplements Denies any unusual signs and symptoms of bruising, bleeding Denies any new Chest pain, SOB, or clotting INR: 1.7 below therapeutic range pt then states that he was supposed to take 10mg on Monday but only took 7.5mg and took it after 10pm vs usual 5pm sts he took a lovenox shot that night as I was worried I was going to be low ?? reviewed with patient importance of carrying a dose or 2 of the warfarin with him when he is out and about so that he can have it available Nutritional guidance given: continue no dark greens but contiue with reds PT ALSO EXERCISES ALOT, STS HE IS CURRENTLY DOING 1.5 HOURS OF CARDIO A DAY WHICH IS ABOUT HALF OF HIS USUAL reviewed balance of life activities and need to get in a therapeutic range Dose: pt to take 10mg today and tomorrow along with lovenox twice a day; F/U INR:02/28 Patient verbalizes understanding of instructions given with accurate read back/ teach back of dosing Anti-Coag Initial Assessment Social Hx Patient Tobacco Use Status: Never used Tobacco alcohol intake: never Alcohol intake frequency: does not drink Cardiovascular Hx: HTN 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
== END 2024-02-27 11:03 | disposition home or self-care (01) ==
LOC: HO.ACS 09:17
PROVIDERS: PCP Internal Medicine; Visit Provider Internal Medicine
DX: Z79.01 Long term (current) use of anticoagulants (principal)

== ENCOUNTER → 2024-02-27 09:17 | Outpatient (BNVA) | payer OTHER, SELFPAY | PROVIDERS: PCP Internal Medicine; Visit Provider Internal Medicine | DX: I82.411 Acute embolism and thrombosis of right femoral vein (principal); I26.99 Other pulmonary embolism without acute cor pulmonale; Z51.81 Encounter for therapeutic drug level monitoring; Z79.01 Long term (current) use of anticoagulants | CPT/HCPCS: 85610; 99212 ==

== ENCOUNTER 2024-02-29 08:58 | Outpatient (REF) | payer OTHER, SELFPAY ==
[2024-02-29 09:56] LABS: MANUAL DIFF FLAG NO
[2024-02-29 10:37] LABS: Basophils Percent Auto 0.6 % (0-2); Eosinophils Absolute Auto 0.1 X10*3/uL (0.0-0.4); Eosinophils Percent Auto 1.4 % (0-4); Hematocrit 42.8 % (42.0-52.0); Hemoglobin 14.4 g/dl (14.0-18.0); Imm Gran Abs Auto 0.01 X10*3/uL (0.00-0.03); Imm Gran Pct Auto 0.3 % (0.0-0.4); Lymphocytes Absolute Auto 1.2 X10*3/uL (1.2-4.9); Mean Corpuscular HGB Conc 33.6 g/dl (31.0-36.0); Mean Corpuscular Hemoglobin 30.4 pg (27.0-33.0); Mean Corpuscular Volume 90.5 fL (80.0-98.0); Mean Platelet Volume 9.7 fL (9.4-12.4); Monocytes Absolute Auto 0.3 X10*3/uL (0.1-1.2); Monocytes Percent Auto 8.3 % (2-11); Neutrophils Absolute Auto 1.9 x10*3/uL (2.0-8.3); Neutrophils Percent Auto 54.4 % (45-73); Platelet Count 237 X10*3/uL (160-400); Red Blood Count 4.73 X10*6/uL (4.60-5.80); Red Cell Distribution Width 13.7 % (11.0-16.0); White Blood Count 3.5 X10*3/uL (4.8-10.8)
[2024-02-29 10:49] LABS: Phenytoin Dilantin 18.4 ug/mL (10.0-20.0)
[2024-02-29 10:50] LABS: D Dimer High Sensitivity < 150 NG/ML
[2024-02-29 11:21] LABS: Alanine Aminotransferase 37 U/L (0-40); Albumin Level 4.7 g/dL (3.5-5.0); Alkaline Phosphatase 94 U/L (39-117); Anion Gap 12 (12-20); Aspartate Amino Transferase 26 U/L (5-37); Bilirubin Direct < 0.2 mg/dL (0.0-0.5); Bilirubin Total 0.2 mg/dL (0.0-1.0); Blood Urea Nitrogen 18 mg/dL (9-16); Calcium 9.1 mg/dL (8.4-10.2); Carbon Dioxide 26 mmol/L (22-29); Chloride 107 mmol/L (96-108); Estimated Glomerular Filt Rate > 60; Glucose Fasting 94 mg/dL (60-99); Glucose Random 94 mg/dL (60-115); Potassium 4.5 mmol/L (3.3-5.1); Sodium 140 mmol/L (135-145); Total Protein 7.8 g/dL (6.5-8.0)
[2024-02-29 11:31] LABS: PSA,Total (Free>4and<10) 0.52 ng/mL (0.00-4.00)
== END 2024-02-29 08:59 | disposition home or self-care (01) ==
LOC: HO.LAB 08:58
PROVIDERS: Internal Medicine Medical Oncology; PCP Internal Medicine; Visit Provider Internal Medicine
DX: I82.441 Acute embolism and thrombosis of right tibial vein (principal); I26.99 Other pulmonary embolism without acute cor pulmonale; R56.9 Unspecified convulsions; R74.01 Elevation of levels of liver transaminase levels; E04.1 Nontoxic single thyroid nodule; Z51.81 Encounter for therapeutic drug level monitoring; Z79.01 Long term (current) use of anticoagulants; Z12.5 Encounter for screening for malignant neoplasm of prostate; Z00.00 Encounter for general adult medical examination without abnormal findings
CPT/HCPCS: 36415; 80053; 80185; 82248; 84153; 84443; 85025; 85379; 85610; 99211

== ENCOUNTER 2024-02-29 09:06 | Outpatient (AMB) | payer OTHER, SELFPAY ==
[2024-02-29 09:18] LABS: Prothrombin Time Whole Bld POC 27.6 sec (11.1-13.5); ~PT, ~INR - Anti Coag Clinic 2.3 (0.9-1.1)
--- NOTE | 2024-02-29 09:37 | MHC.OFFVISCO ---
Intake Intake Visit Reasons: Anticoagulation Allergies enoxaparin Adverse Reaction (Mild, Verified 02/29/24 09:13) Headache anesthesia Adverse Reaction (Uncoded 02/23/24 08:08) seizure Medication List - Last Reconciled 02/29/24 by Sayra Fitch RN aspirin 81 mg PO BEDTIME loratadine (Allergy Relief (loratadine)) 10 mg PO DAILY multivitamin 1 tab PO DAILY phenytoin sodium extended 200 mg PO BID psyllium husk (aspartame) 3.4 gram/5.8 gram (Metamucil Sugar-Free (aspartame)) ea PO rosuvastatin 40 mg PO DAILY warfarin 10 mg See Protocol PO DAILY 30 days Nursing Note NO CP,SOB,DIET/MED CHANGES OR SX OF BLEEDING. ADJUST WARFARIN DOSE TO 10MGM 3 DAYS AND 7.5MGM X 4 AND RECHECK INR ON 03/04. OK TO STOP LOVENOX MAY RE-INTRODUCE A FEW LIGHT GREENS OVER THE NEXT FEW DAYS INCREASE REDS GOOD UNDERSTANDING OF DOSING INSTR.VERB.BY PT. 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
== END 2024-02-29 09:40 | disposition home or self-care (01) ==
LOC: HO.ACS 09:06
PROVIDERS: PCP Internal Medicine; Visit Provider Internal Medicine
DX: Z79.01 Long term (current) use of anticoagulants (principal)

== ENCOUNTER 2024-03-04 08:08 | Outpatient (AMB) | payer OTHER, SELFPAY ==
[2024-03-04 08:21] LABS: Prothrombin Time Whole Bld POC 35.7 sec (11.1-13.5)
--- NOTE | 2024-03-04 08:28 | MHC.OFFVISCO ---
Intake Intake Visit Reasons: Anticoagulation Allergies enoxaparin Adverse Reaction (Mild, Verified 03/04/24 08:13) Headache anesthesia Adverse Reaction (Uncoded 03/04/24 08:13) seizure Medication List - Last Reconciled 03/04/24 by Mayela Monique RN aspirin 81 mg PO BEDTIME loratadine (Allergy Relief (loratadine)) 10 mg PO DAILY multivitamin 1 tab PO DAILY phenytoin sodium extended 200 mg PO BID psyllium husk (aspartame) 3.4 gram/5.8 gram (Metamucil Sugar-Free (aspartame)) ea PO rosuvastatin 40 mg PO DAILY warfarin 10 mg See Protocol PO DAILY 30 days Nursing Note Amb to [facility] feeling well Medications and supplements reviewed, sts headaches returned when he was on the lovenox but not that bad has been off lovenox since last visit No new changes in health, diet, medications, or supplements, Denies any signs and symptoms of bleeding, bruising, or clotting. 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
== END 2024-03-04 08:36 | disposition home or self-care (01) ==
LOC: HO.ACS 08:08
PROVIDERS: PCP Internal Medicine; Visit Provider Internal Medicine
DX: Z79.01 Long term (current) use of anticoagulants (principal)

== ENCOUNTER → 2024-03-04 08:08 | Outpatient (BNVA) | payer OTHER, SELFPAY | PROVIDERS: PCP Internal Medicine; Visit Provider Internal Medicine | DX: I82.411 Acute embolism and thrombosis of right femoral vein (principal); I26.99 Other pulmonary embolism without acute cor pulmonale; Z51.81 Encounter for therapeutic drug level monitoring; Z79.01 Long term (current) use of anticoagulants | CPT/HCPCS: 85610; 99211 ==

== ENCOUNTER → 2024-03-05 10:40 | Outpatient (BNV) | payer BC, OTHER, SELFPAY | PROVIDERS: PCP Internal Medicine; Visit Provider Internal Medicine Medical Oncology | DX: I26.99 Other pulmonary embolism without acute cor pulmonale (principal) | CPT/HCPCS: 99213 ==

== ENCOUNTER → 2024-03-07 09:39 | Outpatient (BNVA) | payer OTHER, SELFPAY | PROVIDERS: PCP Internal Medicine; Visit Provider Internal Medicine | DX: I82.411 Acute embolism and thrombosis of right femoral vein (principal); I26.99 Other pulmonary embolism without acute cor pulmonale; Z51.81 Encounter for therapeutic drug level monitoring; Z79.01 Long term (current) use of anticoagulants | CPT/HCPCS: 85610; 99212 ==

== ENCOUNTER 2024-03-12 08:32 | Outpatient (AMB) | payer OTHER, SELFPAY ==
[2024-03-12 08:52] LABS: Prothrombin Time Whole Bld POC 34.5 sec (11.1-13.5); ~PT, ~INR - Anti Coag Clinic 2.9 (0.9-1.1)
--- NOTE | 2024-03-12 08:59 | MHC.OFFVISCO ---
Intake Intake Visit Reasons: Anticoagulation Allergies enoxaparin Adverse Reaction (Mild, Verified 03/07/24 09:45) Headache anesthesia Adverse Reaction (Uncoded 03/07/24 09:45) seizure Medication List - Last Reconciled 03/12/24 by Aye Johnson RN aspirin 81 mg PO BEDTIME loratadine (Allergy Relief (loratadine)) 10 mg PO DAILY multivitamin 1 tab PO DAILY phenytoin sodium extended 200 mg PO BID psyllium husk (aspartame) 3.4 gram/5.8 gram (Metamucil Sugar-Free (aspartame)) 3.4 ea PO DAILY rosuvastatin 40 mg PO DAILY warfarin 10 mg See Protocol PO DAILY 30 days Nursing Note INR: 2.9 in therapeutic range Medications and supplements reviewed Pt feeling tiered may be to slight increase phenytoin for 2 weeks, can lower INR would like to increase greens Denies any signs and symptoms of bleeding or bruising or clotting. 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 Illness/Depression: No Coding Level of Care Code Est Patient Level 1 Diagnoses Current use of anticoagulant therapy Z79.01 Results AMB INR Fingerstick AMB INR Fingerstick 2.9 Last Edit by Aye Johnson RN on 03/12/24 08:51 manual entry Assessment & Plan Assessment & Plan (1) Current use of anticoagulant therapy: Code(s): Z79.01 - shelter (current) use of 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
== END 2024-03-12 09:04 | disposition home or self-care (01) ==
LOC: HO.ACS 08:32
PROVIDERS: PCP Internal Medicine; Visit Provider Internal Medicine
DX: Z79.01 Long term (current) use of anticoagulants (principal)

== ENCOUNTER → 2024-03-12 08:32 | Outpatient (BNVA) | payer OTHER, SELFPAY | PROVIDERS: PCP Internal Medicine; Visit Provider Internal Medicine | DX: I82.411 Acute embolism and thrombosis of right femoral vein (principal); I26.99 Other pulmonary embolism without acute cor pulmonale; Z51.81 Encounter for therapeutic drug level monitoring; Z79.01 Long term (current) use of anticoagulants | CPT/HCPCS: 85610; 99211 ==

== ENCOUNTER 2024-03-18 09:04 | Outpatient (AMB) | payer OTHER, SELFPAY ==
[2024-03-18 09:33] LABS: Prothrombin Time Whole Bld POC 26.3 sec (11.1-13.5); ~PT, ~INR - Anti Coag Clinic 2.2 (0.9-1.1)
--- NOTE | 2024-03-18 09:40 | MHC.OFFVISCO ---
Intake Intake Visit Reasons: Anticoagulation Allergies enoxaparin Adverse Reaction (Mild, Verified 03/18/24 09:26) Headache anesthesia Adverse Reaction (Uncoded 03/18/24 09:26) seizure Medication List - Last Reconciled 03/18/24 by Aye Johnson RN aspirin 81 mg PO BEDTIME loratadine (Allergy Relief (loratadine)) 10 mg PO DAILY multivitamin 1 tab PO DAILY phenytoin sodium extended 200 mg PO BID psyllium husk (aspartame) 3.4 gram/5.8 gram (Metamucil Sugar-Free (aspartame)) 3.4 ea PO DAILY rosuvastatin 40 mg PO DAILY warfarin 10 mg See Protocol PO DAILY 30 days Nursing Note INR: 2.2 in therapeutic range Medications and supplements reviewed PT STATES HE FEELS LIKE HE IS WHEEZING A LITTLE, LUNG SOUNDS CHECKED, AIR WAYS MORE AUDIBLE AFTER TAKING DEEP BREATHS AND CLEAR BILAT, BUT IF CONCERNED TO CHECK WITH PCP - POSSIBLE ALLERGY DUE TO ALL POLLEN IN AIR LIKES TO EAT SALADS WILL INCREASE WARFARIN TO ACCOMMODATE DIET Denies any signs and symptoms of bleeding or bruising or clotting. 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
== END 2024-03-18 09:44 | disposition home or self-care (01) ==
LOC: HO.ACS 09:04
PROVIDERS: PCP Internal Medicine; Visit Provider Internal Medicine
DX: Z79.01 Long term (current) use of anticoagulants (principal)

== ENCOUNTER → 2024-03-18 09:04 | Outpatient (BNVA) | payer OTHER, SELFPAY | PROVIDERS: PCP Internal Medicine; Visit Provider Internal Medicine | DX: I82.411 Acute embolism and thrombosis of right femoral vein (principal); I26.99 Other pulmonary embolism without acute cor pulmonale; Z51.81 Encounter for therapeutic drug level monitoring; Z79.01 Long term (current) use of anticoagulants | CPT/HCPCS: 85610; 99211 ==

== ENCOUNTER 2024-03-25 08:30 | Outpatient (AMB) | payer OTHER, SELFPAY ==
--- NOTE | 2024-03-25 08:44 | MHC.OFFVISCO ---
Intake Intake Visit Reasons: Anticoagulation Allergies enoxaparin Adverse Reaction (Mild, Verified 03/18/24 09:26) Headache anesthesia Adverse Reaction (Uncoded 03/18/24 09:26) seizure Nursing Note INR: 2.4 in therapeutic range of 2-3 Medications and supplements reviewed: no changes No changes in health, diet, medications, or supplements, Denies any signs and symptoms of bleeding or bruising or clotting. 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
[2024-03-28 09:19] LABS: Prothrombin Time Whole Bld POC 28.8 sec (11.1-13.5); ~PT, ~INR - Anti Coag Clinic 2.4 (0.9-1.1)
== END 2024-03-25 08:49 | disposition home or self-care (01) ==
LOC: HO.ACS 08:30
PROVIDERS: PCP Internal Medicine; Visit Provider Internal Medicine
DX: Z79.01 Long term (current) use of anticoagulants (principal)

== ENCOUNTER → 2024-03-25 08:30 | Outpatient (BNVA) | payer OTHER, SELFPAY | PROVIDERS: PCP Internal Medicine; Visit Provider Internal Medicine | DX: I82.411 Acute embolism and thrombosis of right femoral vein (principal); I26.99 Other pulmonary embolism without acute cor pulmonale; Z51.81 Encounter for therapeutic drug level monitoring; Z79.01 Long term (current) use of anticoagulants | CPT/HCPCS: 85610; 99211 ==

== ENCOUNTER 2024-04-01 08:01 | Outpatient (AMB) | payer OTHER, SELFPAY ==
[2024-04-01 08:12] LABS: Prothrombin Time Whole Bld POC 38.9 sec (11.1-13.5); ~PT, ~INR - Anti Coag Clinic 3.2 (0.9-1.1)
--- NOTE | 2024-04-01 08:29 | MHC.OFFVISCO ---
Intake Intake Visit Reasons: Anticoagulation Allergies enoxaparin Adverse Reaction (Mild, Verified 04/01/24 08:06) Headache anesthesia Adverse Reaction (Uncoded 04/01/24 08:06) seizure Medication List - Last Reconciled 04/01/24 by Aye Johnson RN aspirin 81 mg PO BEDTIME loratadine (Allergy Relief (loratadine)) 10 mg PO DAILY multivitamin 1 tab PO DAILY phenytoin sodium extended 200 mg PO BID psyllium husk (aspartame) 3.4 gram/5.8 gram (Metamucil Sugar-Free (aspartame)) 3.4 ea PO DAILY rosuvastatin 40 mg PO DAILY warfarin 10 mg See Protocol PO DAILY 30 days Nursing Note INR 3.2 out of therapeutic range Medications and supplements reviewed Patient status: WORKS OUT ALMOST DAILY, YESTERDAY NOTICED PAIN WITH INHALATION 2-3/10 PAIN SCALE,LIPS PINK NO C/O OF SOB, ALSO NOTICES PAIN IN LEFT CHEST WITH ROM OF ARMS, SEEMS TO BE DEEP CHEST MUSCLE, LISTENED TO LUNGS CLEARED WITH DEEP BREATHS BILAT, ENC PT IF STARTS TO NOT FEEL WELL AND PAIN PERSISTS OR GETS WORSE TO CALL MD AND OR GO TO ER, HE STATES HE DOES NOT FEEL NEED TO GO TO ER AMAYA, OCC DIZINESS- PT SENT FOR CBC, ENC TO CALL MD OR GO TO ER, AND ENC TO REST UPPER BODY Medications or supplements: NO CHANGES Diet: GOOD Denies any signs and symptoms of bleeding or clotting or unusual bruising Bleeding, bruising, clotting discussed Nutritional guidance given: EAT A GREEN TODAY AND CONT TO EAT A MIX OF FRUITS AND VEGETABLES Dose: KEEP SAME 7.5MG MWF/ 10MG X 4 DAYS F/U INR Date : 1 WEEK 04/10/24 ?? Patient verbalizing understanding of instructions given. 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
== END 2024-04-01 08:39 | disposition home or self-care (01) ==
LOC: HO.ACS 08:01
PROVIDERS: PCP Internal Medicine; Visit Provider Internal Medicine
DX: Z79.01 Long term (current) use of anticoagulants (principal)

== ENCOUNTER 2024-04-01 08:01 | Outpatient (REF) | payer OTHER, SELFPAY ==
[2024-04-01 09:07] LABS: Hematocrit 42.7 % (42.0-52.0); Hemoglobin 14.5 g/dl (14.0-18.0); Mean Corpuscular Hemoglobin 30.7 pg (27.0-33.0); Mean Corpuscular Volume 90.5 fL (80.0-98.0); Mean Platelet Volume 9.6 fL (9.4-12.4); Platelet Count 175 X10*3/uL (160-400); Red Blood Count 4.72 X10*6/uL (4.60-5.80); Red Cell Distribution Width 13.7 % (11.0-16.0); White Blood Count 3.6 X10*3/uL (4.8-10.8)
== END 2024-04-01 08:02 | disposition home or self-care (01) ==
LOC: HO.LAB 08:01
PROVIDERS: PCP Internal Medicine; Visit Provider Internal Medicine
DX: I82.411 Acute embolism and thrombosis of right femoral vein (principal); I26.99 Other pulmonary embolism without acute cor pulmonale; Z51.81 Encounter for therapeutic drug level monitoring; Z79.01 Long term (current) use of anticoagulants
CPT/HCPCS: 36415; 85027; 85610; 99211

== ENCOUNTER 2024-04-09 08:22 | Outpatient (AMB) | payer OTHER, SELFPAY ==
[2024-04-09 08:27] LABS: Prothrombin Time Whole Bld POC 38.6 sec (11.1-13.5); ~PT, ~INR - Anti Coag Clinic 3.2 (0.9-1.1)
--- NOTE | 2024-04-09 08:29 | MHC.OFFVISCO ---
Intake Intake Visit Reasons: Anticoagulation Allergies enoxaparin Adverse Reaction (Mild, Verified 04/09/24 08:22) Headache anesthesia Adverse Reaction (Uncoded 04/09/24 08:22) seizure Medication List - Last Reconciled 04/09/24 by Mayela Monique RN aspirin 81 mg PO BEDTIME loratadine (Allergy Relief (loratadine)) 10 mg PO DAILY multivitamin 1 tab PO DAILY phenytoin sodium extended 200 mg PO BID psyllium husk (aspartame) 3.4 gram/5.8 gram (Metamucil Sugar-Free (aspartame)) 3.4 ea PO DAILY rosuvastatin 40 mg PO DAILY warfarin 10 mg See Protocol PO DAILY 30 days Nursing Note AMb to ACS has appt with Dr Parrish today, ACS tomorrow, able to see him today Medications and supplements reviewed No new changes in health, diet, medications, or supplements, Denies any signs and symptoms of bleeding or bruising or clotting. Sts he has some diff breathing at time, sts mostly first thing in the morning but it goes away as I get my day started This pt works out daily at gym at least 1.5 hours daily, spent weekend in [place], walking the [employer] and going to [employer] game Dose: continue usual dosing 7.5mg x 3 days and 10mg x 4 days Nutritional guidance given continue usual greens and be consistent F/U INR: 10 days Patient verbalizes understanding of instructions given Anti-Coag Initial Assessment Social Hx Patient Tobacco Use Status: Never used Tobacco alcohol intake: never Alcohol intake frequency: does not drink Cardiovascular Hx: HTN 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
== END 2024-04-09 08:33 | disposition home or self-care (01) ==
LOC: HO.ACS 08:22
PROVIDERS: PCP Internal Medicine; Visit Provider Internal Medicine
DX: Z79.01 Long term (current) use of anticoagulants (principal)

== ENCOUNTER → 2024-04-09 08:22 | Outpatient (BNVA) | payer OTHER, SELFPAY | PROVIDERS: PCP Internal Medicine; Visit Provider Internal Medicine | DX: I82.411 Acute embolism and thrombosis of right femoral vein (principal); I26.99 Other pulmonary embolism without acute cor pulmonale; Z51.81 Encounter for therapeutic drug level monitoring; Z79.01 Long term (current) use of anticoagulants | CPT/HCPCS: 85610; 99211 ==

== ENCOUNTER 2024-04-10 07:27 | Outpatient (REF) | payer OTHER, SELFPAY | END 2024-04-10 07:28 | disposition home or self-care (01) | LOC: HO.LAB 07:27 | PROVIDERS: PCP Internal Medicine; Visit Provider Psychiatry & Neurology Neurology | DX: Z13.89 Encounter for screening for other disorder (principal) | CPT/HCPCS: 36415; 80185 ==

== ENCOUNTER → 2024-04-16 08:15 | Outpatient (BNVA) | payer OTHER, SELFPAY | PROVIDERS: PCP Internal Medicine; Visit Provider Internal Medicine | DX: I82.411 Acute embolism and thrombosis of right femoral vein (principal); I26.99 Other pulmonary embolism without acute cor pulmonale; Z51.81 Encounter for therapeutic drug level monitoring; Z79.01 Long term (current) use of anticoagulants | CPT/HCPCS: 85610; 99212 ==

== ENCOUNTER 2024-04-22 08:02 | Outpatient (REF) | payer OTHER, SELFPAY | END 2024-04-22 08:03 | disposition home or self-care (01) | LOC: HO.LAB 08:02 | PROVIDERS: PCP Internal Medicine; Visit Provider Psychiatry & Neurology Neurology | DX: G40.909 Epilepsy, unspecified, not intractable, without status epilepticus (principal) | CPT/HCPCS: 36415; 80185 ==

== ENCOUNTER 2024-04-23 08:29 | Outpatient (AMB) | payer OTHER, SELFPAY ==
--- NOTE | 2024-04-23 09:08 | MHC.OFFVISCO ---
Intake Intake Visit Reasons: Anticoagulation Allergies enoxaparin Adverse Reaction (Mild, Verified 04/23/24 08:30) Headache anesthesia Adverse Reaction (Uncoded 04/23/24 08:30) seizure Medication List - Last Reconciled 04/23/24 by Mayela Connelly, RN aspirin 81 mg PO BEDTIME enoxaparin (Lovenox) 40 mg (0.4 mL) subcut DAILY 7 days loratadine (Allergy Relief (loratadine)) 10 mg PO DAILY multivitamin 1 tab PO DAILY phenytoin sodium extended 200 mg PO BID psyllium husk (aspartame) 3.4 gram/5.8 gram (Metamucil Sugar-Free (aspartame)) 3.4 ea PO DAILY rosuvastatin 40 mg PO DAILY warfarin 10 mg See Protocol PO DAILY 30 days Nursing Note INR: 2.3 in therapeutic range of 2-3 Medications and supplements reviewed No changes in health, diet, medications, or supplements, Pt states he will be having a colonoscopy on 05/09/24. He does not know about having to hold the warfarin but stated he has a new prescription at the pharmacy for lovenox. Will message Dr Marvin Carter, pt's PCP about the lovenox bridging and Gi for question of how many days to hold the warfarin. Denies any signs and symptoms of bleeding or bruising or clotting. 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 Illness/Depression: No Coding Level of Care Code Est Patient Level 1 Diagnoses Current use of anticoagulant therapy Z79.01 Results AMB INR Fingerstick AMB INR Fingerstick 2.3 Last Edit by Mayela Connelly RN on 04/23/24 08:42 interface delay Assessment & Plan Assessment & Plan (1) Current use of anticoagulant therapy: Code(s): Z79.01 - FDC (current) use of 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 Medications: Refilled enoxaparin (Lovenox) 40 mg See Protocol subcut DAILY 2.8 mL 0RF 7 days
[2024-04-23 09:33] LABS: Prothrombin Time Whole Bld POC 27.2 sec (11.1-13.5); ~PT, ~INR - Anti Coag Clinic 2.3 (0.9-1.1)
== END 2024-04-23 11:52 | disposition home or self-care (01) ==
PROVIDERS: PCP Internal Medicine; Visit Provider Internal Medicine
DX: Z79.01 Long term (current) use of anticoagulants (principal)

== ENCOUNTER → 2024-04-23 08:29 | Outpatient (BNVA) | payer OTHER, SELFPAY | PROVIDERS: PCP Internal Medicine; Visit Provider Internal Medicine | DX: I82.411 Acute embolism and thrombosis of right femoral vein (principal); I26.99 Other pulmonary embolism without acute cor pulmonale; Z51.81 Encounter for therapeutic drug level monitoring; Z79.01 Long term (current) use of anticoagulants | CPT/HCPCS: 85610; 99211 ==

== ENCOUNTER 2024-05-01 08:05 | Outpatient (REF) | payer OTHER, SELFPAY ==
[2024-05-01 08:53] LABS: Phenytoin Dilantin 18.4 ug/mL (10.0-20.0)
== END 2024-05-01 08:06 | disposition home or self-care (01) ==
LOC: HO.LAB 08:05
PROVIDERS: Visit Provider Psychiatry & Neurology Neurology
DX: G40.909 Epilepsy, unspecified, not intractable, without status epilepticus (principal); I82.411 Acute embolism and thrombosis of right femoral vein; I26.99 Other pulmonary embolism without acute cor pulmonale; Z51.81 Encounter for therapeutic drug level monitoring; Z79.01 Long term (current) use of anticoagulants
CPT/HCPCS: 36415; 80185; 85610; 99211

== ENCOUNTER 2024-05-01 08:08 | Outpatient (AMB) | payer OTHER, SELFPAY ==
--- NOTE | 2024-05-01 08:39 | MHC.OFFVISCO ---
Intake Intake Visit Reasons: Anticoagulation Allergies enoxaparin Adverse Reaction (Mild, Verified 05/01/24 08:34) Headache anesthesia Adverse Reaction (Uncoded 05/01/24 08:34) seizure Medication List - Last Reconciled 05/01/24 by Sarah Hayes RN aspirin 81 mg PO BEDTIME enoxaparin (Lovenox) 40 mg See Protocol subcut DAILY 7 days enoxaparin 80 mg subcut Q12H loratadine (Allergy Relief (loratadine)) 10 mg PO DAILY multivitamin 1 tab PO DAILY phenytoin sodium extended 200 mg PO BID psyllium husk (aspartame) 3.4 gram/5.8 gram (Metamucil Sugar-Free (aspartame)) 3.4 ea PO DAILY rosuvastatin 40 mg PO DAILY warfarin 10 mg See Protocol PO DAILY 30 days Nursing Note INR: 2.3- in therapeutic range of 2-3 Medications and supplements reviewed- no changes No changes in health, diet, medications, or supplements, Denies any signs and symptoms of bleeding or bruising or clotting. Bleeding, bruising, clotting discussed Nutritional guidance given Dose: 7.5mg x 3, 10mg x 4 F/U INR: mon 05/13/24 Patient verbalizes understanding of instructions given pt states colonoscopy o n 05/09/24- 5 day hold of warfarin with lovenox bridge. written instructions given to pt and reviewed composed note to dr badillo regarding lovenox allergy/adverse reaction- dr alvarez covering- aware of lovenox allergy/adverse reactions- pt with headaches. 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
[2024-05-01 08:48] LABS: Prothrombin Time Whole Bld POC 27.7 sec (11.1-13.5); ~PT, ~INR - Anti Coag Clinic 2.3 (0.9-1.1)
== END 2024-05-01 09:14 | disposition home or self-care (01) ==
LOC: HO.ACS 08:08
PROVIDERS: PCP Internal Medicine; Visit Provider Internal Medicine
DX: Z79.01 Long term (current) use of anticoagulants (principal)

== ENCOUNTER 2024-05-09 09:48 | Day surgery (SDC) | payer OTHER, SELFPAY ==
[2024-05-07 14:26] VITALS: BMI 24.7
--- NOTE | 2024-05-08 09:04 | HO.ANESPROP2 ---
Documented by User: Blanca Adhikari NP 05/08/24 10:43 HPI - Anesthesia Eval Consult details Narrative: 59yo M for Colonoscopy Coumadin for unprovoked PE/DVT 01/2024 Seizure disorder. Had periop seizure ~ 20 years ago with elbow surgery r/t interaction with yesika. [facility] Active Problems Active Problems: All Active Problems Pulmonary emboli (Acute) Pulmonary embolism (Acute) DVT (deep venous thrombosis) (Acute) Hospital discharge follow-up (Acute) Transaminitis (Acute) Current use of anticoagulant therapy (Acute) History of colon polyps (Acute) Screen for colon cancer (Acute) Olecranon bursitis, right elbow (Acute) History of basal cell carcinoma (Acute) Physical exam (Acute) Thyroid nodule (Acute) Dyspnea (Acute) Cervical radiculopathy (Acute) Allergic rhinitis (Acute) Pure hypercholesterolemia (Acute) Seizures (Acute) Past Medical History Medical History DVT (deep venous thrombosis) Pulmonary embolism Current use of anticoagulant therapy History of basal cell carcinoma Physical exam Thyroid nodule Dyspnea Allergic rhinitis Pure hypercholesterolemia Seizures Family History Family History Father Myocardial infarction Uncontrolled persistent asthma Mother COPD (chronic obstructive pulmonary disease) Breast cancer Sister Asthma Brain tumor Maternal Aunt Breast cancer Surgical History Surgical History History of surgery History of colonoscopy H/O basal cell carcinoma excision Social History Social History Household Members: Spouse Housing: Condominium Housing Other:: lives with spouse Do you presently have visiting nurse or other home services: No Alcohol intake: never Patient Tobacco Use Status: Never used Tobacco e-Cigarette/Vaping Use: Never Used Second Hand Smoke Exposure: No Use of substances other than those prescribed or required for medical reasons: No Are you DNR?: No Advance Directives: No Advance Directives Information Provided: Yes service: No Current occupational status: unemployed and retired 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 ) Cognitive needs: No Hearing needs: No Vision needs: No Meds Allergies Allergy/AdvReac Type Severity Reaction Status Date / Time enoxaparin AdvReac Mild Headache Verified 05/01/24 08:34 Home Medications ?Medication ?Instructions ?Recorded ?Confirmed ?Last Taken ?Type loratadine 10 mg tablet (Allergy 10 mg PO DAILY 10/20/20 05/07/24 02/08/24 History Relief (loratadine)) phenytoin sodium extended 100 mg 200 mg PO BID 07/06/22 05/09/24 05/09/24 History capsule multivitamin 1 tab PO DAILY 02/08/24 05/07/24 02/08/24 History psyllium husk (aspartame) 3.4 3.4 ea PO DAILY 02/19/24 05/07/24 Unknown History gram/5.8 gram oral powder (Metamucil Sugar-Free (aspartame)) enoxaparin 80 mg/0.8 mL 80 mg subcut Q12H 04/23/24 05/09/24 05/08/24 History subcutaneous syringe aspirin 81 mg tablet,delayed 81 mg PO BEDTIME 05/07/24 05/09/24 05/07/24 History release Exam Height,Weight and Vital Signs: Height 6 ft Weight 82.554 kg Assessment and Plan Assessment Anesthesia Assessment: Chart Reviewed Documented by User: Nicole Louise MD 05/09/24 13:29 [facility] Active Problems Active Problems: All Active Problems Pulmonary emboli (Acute) DVT (deep venous thrombosis) (Acute) Hospital discharge follow-up (Acute) Transaminitis (Acute) Current use of anticoagulant therapy (Acute) History of colon polyps (Acute) Screen for colon cancer (Acute) Olecranon bursitis, right elbow (Acute) History of basal cell carcinoma (Acute) Physical exam (Acute) Thyroid nodule (Acute) Dyspnea (Acute) Cervical radiculopathy (Acute) Allergic rhinitis (Acute) Pure hypercholesterolemia (Acute) Seizures (Acute) Past Medical History Medical History DVT (deep venous thrombosis) Pulmonary embolism Current use of anticoagulant therapy History of basal cell carcinoma Physical exam Thyroid nodule Dyspnea Allergic rhinitis Pure hypercholesterolemia Seizures Family History Family History Father Myocardial infarction Uncontrolled persistent asthma Mother COPD (chronic obstructive pulmonary disease) Breast cancer Sister Asthma Brain tumor Maternal Aunt Breast cancer Family history of problems with anesthesia: No Surgical History Surgical History History of surgery History of colonoscopy H/O basal cell carcinoma excision History of Problems with Anesthesia: No Social History Social History Household Members: Spouse Housing: Condominium Housing Other:: lives with spouse Do you presently have visiting nurse or other home services: No Alcohol intake: never Patient Tobacco Use Status: Never used Tobacco e-Cigarette/Vaping Use: Never Used Second Hand Smoke Exposure: No Use of substances other than those prescribed or required for medical reasons: No Are you DNR?: No Advance Directives: No Advance Directives Information Provided: Yes service: No Current occupational status: unemployed and retired 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 ) Cognitive needs: No Hearing needs: No Vision needs: No Meds Allergies Allergy/AdvReac Type Severity Reaction Status Date / Time enoxaparin AdvReac Mild Headache Verified 05/01/24 08:34 Home Medications ?Medication ?Instructions ?Recorded ?Confirmed ?Last Taken ?Type loratadine 10 mg tablet (Allergy 10 mg PO DAILY 10/20/20 05/07/24 02/08/24 History Relief (loratadine)) phenytoin sodium extended 100 mg 200 mg PO BID 07/06/22 05/09/24 05/09/24 History capsule multivitamin 1 tab PO DAILY 02/08/24 05/07/24 02/08/24 History psyllium husk (aspartame) 3.4 3.4 ea PO DAILY 02/19/24 05/07/24 Unknown History gram/5.8 gram oral powder (Metamucil Sugar-Free (aspartame)) enoxaparin 80 mg/0.8 mL 80 mg subcut Q12H 04/23/24 05/09/24 05/08/24 History subcutaneous syringe aspirin 81 mg tablet,delayed 81 mg PO BEDTIME 05/07/24 05/09/24 05/07/24 History release Exam Height,Weight and Vital Signs: Height 6 ft Weight 82.554 kg Vital Signs Temp Pulse Resp BP Pulse Ox O2 Del Method 05/09/24 11:06 97.0 F 72 18 123/82 92 Room Air Pertinent Lab Results Pertinent Lab Results: Lab Results 05/09/24 Range/Units 10:31 PT 11.6 (11.1-13.3) SEC INR 1.0 (0.9-1.1) Narrative Narrative: 12 lead ekg: NSR 73. RBBB Airway Mallampati Class: II TM Dist: >3cm Neck ROM: Full Loose/Missing/Broken Teeth: Yes (Top front bonded) Heart: RRR Lungs: CTAB Assessment and Plan Assessment Anesthesia Assessment: Anesthesia Plan Discussed and Chart Reviewed Final Anesthetic Review Family History of Problems with Anesthesia: No History of Problems with Anesthesia: No NPO: Yes ASA Class: III Final Preanesthetic Review: No Changes in Pt Med Stat, Meds/Allgs Chart Reviewed, Consent Obtained/Reviewed and Anes Risks/Benef Reviewed Patient Risk: Intermediate Procedure Risk: Low Assessment/Block/Sedation in SS: Assess/Block/Sedation-SS Anesthetic Plan Anesthetic Plan: GA and TIVA Disposition: Standard PACU
[2024-05-09 10:14] VITALS: BMI 25.8
[2024-05-09 10:42] LABS: Prothrombin Time 11.6 SEC (11.1-13.3)
--- NOTE | 2024-05-09 10:49 | ECG_ITS ---
Test Reason : rhythm change Blood Pressure : / mmHG Vent. Rate : 073 BPM Atrial Rate : 073 BPM P-R Int : 168 ms QRS Dur : 126 ms QT Int : 422 ms P-R-T Axes : 042 -07 -05 degrees QTc Int : 464 ms Normal sinus rhythm Right bundle branch block Abnormal ECG When compared with ECG of 08-FEB-2024 10:30, Right bundle branch block is now Present Referred By: Jaci Anguiano Electronically Signed By:BEAU GARCIA MD
[2024-05-09 11:06] VITALS: BP 123/82; PULSE 72; RESP 18; TEMP 36.1; O2SAT 92
[2024-05-09] MEDS: Lactated Ringers 1,000 ML 100 ML IVCONT (11:11)
--- NOTE | 2024-05-09 13:15 | P.HPSUR_ITS ---
Pre-Procedural Eval Section A - 24 Hr Update-Section A only Date of Service: 05/09/24 Section B - Complete if H&P > 30 days Chief Complaint: Personal history of colonic polyps Relevant Family History (Specify if Yes): No Relevant Social History: None Present Medications: see Short Stay Collaborative assessment Medical History: Significant History (History of basal cell carcinoma Physical exam Thyroid nodule Dyspnea Allergic rhinitis Pure hypercholesterolemia Seizures) History of Previous Operations: Relevant previous surgery/procedure and date(s) (History of surgery History of colonoscopy H/O basal cell carcinoma excision) Allergies: Allergies Allergy/AdvReac Type Severity Reaction Status Date / Time enoxaparin AdvReac Mild Headache Verified 05/01/24 08:34 Review of Systems Sugical H&P ROS: Negative: Constitution, Cardiovascular, Respiratory, Juan Carlos rological, Psychiatric, Hem-Onc, Allergic/Immunologic, Gastrointestinal, Genitourinary, Musculoskeletal, Integumentary, Endocrine and Eyes/Ears/Nose/Throat Exam Surgical H&P Exam: Normal: HEENT, Normal: Heart, Normal: Lungs, Normal: Extremities, Normal: Abdomen, Normal: Skin and Normal: Neurological Plan Diagnosis/Plan: Unchanged I have reviewed the history and physical and performed a pertinent physical examination on my patient. No changes have occurred unless specified. Time Spent With Patient Time: Total time managing care of this patient today ____ minutes.
--- NOTE | 2024-05-09 13:17 | P.OPN-COLO_ITS ---
Colonoscopy Operative Note Operative Note Date of Service: 05/09/24 Narrative: Operative Information Procedure Description: Colonoscopy Indication: screening Anesthesia: MAC COLONOSCOPY Instrument: Olympus variable stiffness pediatric scope 190L Colonoscopy Monitoring: Vital signs and clinical assessment, continuous EKG monitoring, Pulse oximetry, Carbon Dioxide monitoring and blood pressure monitoring were done throughout the procedure. Colon withdrawal time was 10 minutes. Procedure: The patient was placed in the left lateral decubitis position and pre-procedure medications were administered. After a digital rectal examination of the ano-rectum, the video colonoscope was inserted into the rectum and advanced through the colon to the cecum/TI. The colonoscope was slowly withdrawn in a retrograde panoramic fashion and the colon mucosa was carefully examined including a retroflexed view of the rectum. Findings and interventions are described below. Procedure Difficulty: easy Findings: Terminal Ileum-normal Cecum: 4-6 mm polyp vs prominent fold, cold forceps bx taken Ascending Colon: normal Transverse Colon -normal Descending Colon: 4-5 mm sessile polyp removed with cold forceps Sigmoid Colon: normal Rectum: Retroflexion with small internal hemorrhoids seen, grade I Anorectum - normal Intervention: cold forceps bx Colon preparation: [place] Bowel Preparation Scale Right colon; 2 Transverse colon: 2 Left colon; 2 (0 = Unprepared colon segment with mucosa not seen due to solid stool that cannot be cleared. 1 = Portion of mucosa of the colon segment seen, but other areas of the colon segment not well seen due to staining, residual stool and/or opaque liquid. 2 = Minor amount of residual staining, small fragments of stool and/or opaque liquid, but mucosa of colon segment seen well. 3 = Entire mucosa of colon segment seen well with no residual staining, small fragments of stool or opaque liquid) Impression and Post Procedure Diagnosis: colon polyps internal hemorrhoids Plan: High fiber diet leaflet Avoid straining at stool, epsom salts and sitz bath, anusol supps or cream Repeat Colonoscopy in 5 years if adenomatous polyps, 10 yrs if hyperplastic or earlier if clinically indicated ok to restart coumadin tonight and take lovenox Above findings were reviewed with the patient and relevant handouts were provided if indicated.
[2024-05-09 14:03] VITALS: BP 103/61; PULSE 72; RESP 12; TEMP 36.3; O2SAT 98
[2024-05-09 14:18] VITALS: BP 119/79; PULSE 69; RESP 16; TEMP 36.2; O2SAT 96
== END 2024-05-09 14:41 | disposition home or self-care (01) ==
PROVIDERS: Nurse Practitioner; PCP Internal Medicine; Visit Provider Internal Medicine Gastroenterology
PROC: 0DJD8ZZ Inspection of Lower Intestinal Tract, Via Natural or Artificial Opening Endoscopic (ICD-10-PCS; CPT 45378; principal; 2024-05-09 12:40)
DX: Z12.11 Encounter for screening for malignant neoplasm of colon (principal); Z86.010 Personal history of colon polyps; K63.5 Polyp of colon; K64.0 First degree hemorrhoids; E04.1 Nontoxic single thyroid nodule; J30.9 Allergic rhinitis, unspecified; R06.00 Dyspnea, unspecified; E78.00 Pure hypercholesterolemia, unspecified; R56.9 Unspecified convulsions; Z79.01 Long term (current) use of anticoagulants; Z79.899 Other long term (current) drug therapy; Z79.1 Long term (current) use of non-steroidal anti-inflammatories (NSAID); Z85.828 Personal history of other malignant neoplasm of skin; Z98.890 Other specified postprocedural states; Z56.0 Unemployment, unspecified
CPT/HCPCS: 45380; 36415; 85610; 88305; 93005; J2704

== ENCOUNTER → 2024-05-09 09:48 | Outpatient (BNV) | payer OTHER, SELFPAY | PROVIDERS: PCP Internal Medicine; Visit Provider Internal Medicine Gastroenterology | DX: Z12.11 Encounter for screening for malignant neoplasm of colon (principal); K63.5 Polyp of colon; K64.0 First degree hemorrhoids | CPT/HCPCS: 45380 ==

== ENCOUNTER → 2024-05-09 10:49 | Outpatient (BNV) | payer OTHER, SELFPAY | PROVIDERS: PCP Internal Medicine; Visit Provider Internal Medicine Cardiovascular Disease | DX: R94.31 Abnormal electrocardiogram [ECG] [EKG] (principal) | CPT/HCPCS: 93010 ==

== ENCOUNTER 2024-05-13 08:16 | Outpatient (AMB) | payer BC, SELFPAY ==
[2024-05-13 08:26] LABS: ~PT, ~INR - Anti Coag Clinic 1.5 (0.9-1.1)
--- NOTE | 2024-05-13 08:33 | MHC.OFFVISCO ---
Intake Intake Visit Reasons: Anticoagulation Allergies enoxaparin Adverse Reaction (Mild, Verified 05/13/24 08:17) Headache Medication List - Last Reconciled 05/13/24 by Aye Johnson RN aspirin 81 mg PO BEDTIME enoxaparin 80 mg See Protocol subcut Q12H loratadine (Allergy Relief (loratadine)) 10 mg PO DAILY multivitamin 1 tab PO DAILY phenytoin sodium extended 200 mg PO BID psyllium husk (aspartame) 3.4 gram/5.8 gram (Metamucil Sugar-Free (aspartame)) 3.4 ea PO DAILY rosuvastatin 40 mg PO DAILY warfarin 10 mg See Protocol PO DAILY 30 days Nursing Note INR 1.5? out of therapeutic range Medications and supplements reviewed Patient status: S/P COLONOSCOPY, HAD 2 SMALLPOLYPS REMOVED, NO BLEEDING OR COMPLICATIONS OR S/SX OF CLOTTING Medications or supplements: NO OTHER CHANGES WITH RX, ON LOVENOX BRIDGE Diet: GOOD Denies any signs and symptoms of bleeding or clotting or unusual bruising Bleeding, bruising, clotting discussed Nutritional guidance given: AVOID ALL GREENS AND VIT K FOODS OF ALL KINDS, EAT ORANGE AND REDS Dose: 12.5MG TODAY 10MG MONDAY RECHECK INR MON - LOVENOX BRIDGE F/U INR Date : 05/15/24 ?? Patient verbalizing understanding of instructions given. THIS NOT IS BEING SENT TO PCP WITH REQUEST FOR MORE LOVENOX Anti-Coag Initial Assessment Social Hx Patient Tobacco Use Status: Never used Tobacco alcohol intake: never Alcohol intake frequency: does not drink Cardiovascular Hx: HTN 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
== END 2024-05-13 08:39 | disposition home or self-care (01) ==
LOC: HO.ACS 08:16
PROVIDERS: PCP Internal Medicine; Visit Provider Internal Medicine
DX: Z79.01 Long term (current) use of anticoagulants (principal)

== ENCOUNTER → 2024-05-13 08:16 | Outpatient (BNVA) | payer BC, SELFPAY | PROVIDERS: PCP Internal Medicine; Visit Provider Internal Medicine | DX: I82.411 Acute embolism and thrombosis of right femoral vein (principal); I26.99 Other pulmonary embolism without acute cor pulmonale; Z51.81 Encounter for therapeutic drug level monitoring; Z79.01 Long term (current) use of anticoagulants | CPT/HCPCS: 85610; 99211 ==

== ENCOUNTER 2024-05-15 13:00 | Outpatient (AMB) | payer BC, SELFPAY ==
[2024-05-15 13:08] LABS: Prothrombin Time Whole Bld POC 26.1 sec (11.1-13.5); ~PT, ~INR - Anti Coag Clinic 2.2 (0.9-1.1)
--- NOTE | 2024-05-15 13:18 | MHC.OFFVISCO ---
Intake Intake Visit Reasons: Anticoagulation Allergies enoxaparin Adverse Reaction (Mild, Verified 05/13/24 08:17) Headache Nursing Note INR: 2.2 in therapeutic range Medications and supplements reviewed- he will complete lovenox tonight No s/sx of post colonoscopy polypectomy bleeding - stools normal per pt Denies any signs and symptoms of bleeding or bruising or clotting. Bleeding, bruising, clotting discussed Nutritional guidance given - avoid greens until the weekend Dose: resume usual dose 10mg x 4 days/ 7.5mg x 3 days F/U INR: 05/20/24 Patient verbalizes understanding of instructions given Anti-Coag Initial Assessment Social Hx Patient Tobacco Use Status: Never used Tobacco alcohol intake: never Alcohol intake frequency: does not drink Cardiovascular Hx: HTN 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 Illness/Depression: No Coding Level of Care Code Est Patient Level 1 Diagnoses Current use of anticoagulant therapy Z79.01 Results AMB INR Fingerstick AMB INR Fingerstick 2.2 Last Edit by Aye Johnson RN on 05/15/24 13:12 manual entry Assessment & Plan Assessment & Plan (1) Current use of anticoagulant therapy: Code(s): Z79.01 - [facility] (current) use of 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
== END 2024-05-15 13:22 | disposition home or self-care (01) ==
LOC: HO.ACS 13:00
PROVIDERS: PCP Internal Medicine; Visit Provider Internal Medicine
DX: Z79.01 Long term (current) use of anticoagulants (principal)

== ENCOUNTER → 2024-05-15 13:00 | Outpatient (BNVA) | payer BC, SELFPAY | PROVIDERS: PCP Internal Medicine; Visit Provider Internal Medicine | DX: I82.411 Acute embolism and thrombosis of right femoral vein (principal); I26.99 Other pulmonary embolism without acute cor pulmonale; Z51.81 Encounter for therapeutic drug level monitoring; Z79.01 Long term (current) use of anticoagulants | CPT/HCPCS: 85610; 99211 ==

== ENCOUNTER 2024-05-20 08:44 | Outpatient (AMB) | payer BC, SELFPAY ==
[2024-05-20 08:55] LABS: Prothrombin Time Whole Bld POC 24.4 sec (11.1-13.5)
--- NOTE | 2024-05-20 09:00 | MHC.OFFVISCO ---
Intake Intake Visit Reasons: Anticoagulation Allergies enoxaparin Adverse Reaction (Mild, Verified 05/20/24 08:48) Headache Medication List - Last Reconciled 05/20/24 by Aye Johnson RN aspirin 81 mg PO BEDTIME loratadine (Allergy Relief (loratadine)) 10 mg PO DAILY multivitamin 1 tab PO DAILY phenytoin sodium extended 200 mg PO BID psyllium husk (aspartame) 3.4 gram/5.8 gram (Metamucil Sugar-Free (aspartame)) 3.4 ea PO DAILY rosuvastatin 40 mg PO DAILY warfarin 10 mg See Protocol PO DAILY 30 days Nursing Note INR: 2.0 in therapeutic range, S/P COLONOSCOPY POLYPECTOMY LAST WEEK - NO COMPLICATIONS, IT WAS EXPLAINED INR CAN RUN LOW POST PROCEDURE Medications and supplements reviewed No changes in health, diet, medications, or supplements, Denies any signs and symptoms of bleeding or bruising or clotting. Bleeding, bruising, clotting discussed Nutritional guidance given - AVOID GREENS X 3 DAYS THEN RESUME USUAL DIET Dose: 10MG X 5 DAYS THIS WEEK THEN RESUME 10MG X 4 DAYS / 7.5MG X 3 DAYS F/U INR: 2 DAYS PRIOR VACATION Patient verbalizes understanding of instructions given Anti-Coag Initial Assessment Social Hx Patient Tobacco Use Status: Never used Tobacco alcohol intake: never Alcohol intake frequency: does not drink Cardiovascular Hx: HTN 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 Illness/Depression: No Coding Level of Care Code Est Patient Level 1 Diagnoses Current use of anticoagulant therapy Z79.01 Results AMB INR Fingerstick AMB INR Fingerstick 2.0 Last Edit by Aye Johnson RN on 05/20/24 08:56 MANUAL ENTRY FAILED INTERFACING ONGOING Assessment & Plan Assessment & Plan (1) Current use of anticoagulant therapy: Code(s): Z79.01 - senior living (current) use of 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
== END 2024-05-20 09:04 | disposition home or self-care (01) ==
LOC: HO.ACS 08:44
PROVIDERS: PCP Internal Medicine; Visit Provider Internal Medicine
DX: Z79.01 Long term (current) use of anticoagulants (principal)

== ENCOUNTER → 2024-05-20 08:44 | Outpatient (BNVA) | payer BC, SELFPAY | PROVIDERS: PCP Internal Medicine; Visit Provider Internal Medicine | DX: I82.411 Acute embolism and thrombosis of right femoral vein (principal); I26.99 Other pulmonary embolism without acute cor pulmonale; Z51.81 Encounter for therapeutic drug level monitoring; Z79.01 Long term (current) use of anticoagulants | CPT/HCPCS: 85610; 99211 ==

== ENCOUNTER 2024-05-22 13:21 | Outpatient (AMB) | payer BC, SELFPAY ==
[2024-05-22 13:28] LABS: Prothrombin Time Whole Bld POC 27.4 sec (11.1-13.5); ~PT, ~INR - Anti Coag Clinic 2.3 (0.9-1.1)
--- NOTE | 2024-05-22 13:34 | MHC.OFFVISCO ---
Intake Intake Visit Reasons: Anticoagulation Allergies enoxaparin Adverse Reaction (Mild, Verified 05/22/24 13:22) Headache Medication List - Last Reconciled 05/22/24 by Aye Johnson RN aspirin 81 mg PO BEDTIME loratadine (Allergy Relief (loratadine)) 10 mg PO DAILY multivitamin 1 tab PO DAILY phenytoin sodium extended 200 mg PO BID psyllium husk (aspartame) 3.4 gram/5.8 gram (Metamucil Sugar-Free (aspartame)) 3.4 ea PO DAILY rosuvastatin 40 mg PO DAILY warfarin 10 mg See Protocol PO DAILY 30 days Nursing Note INR: 2.3 in therapeutic range Medications and supplements reviewed No changes in health, diet, medications, or supplements, Denies any signs and symptoms of bleeding or bruising or clotting. Bleeding, bruising, clotting discussed Nutritional guidance given Dose: 10MG X 4 DAYS/ 7.5MG X 3 DAYS F/U INR: 05/27/24 Patient verbalizes understanding of instructions given Anti-Coag Initial Assessment Social Hx Patient Tobacco Use Status: Never used Tobacco alcohol intake: never Alcohol intake frequency: does not drink Cardiovascular Hx: HTN 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 Illness/Depression: No Coding Level of Care Code Est Patient Level 1 Diagnoses Current use of anticoagulant therapy Z79.01 Results AMB INR Fingerstick AMB INR Fingerstick 2.3 Last Edit by Aye Johnson RN on 05/22/24 13:30 MANUAL ENTRY Assessment & Plan Assessment & Plan (1) Current use of anticoagulant therapy: Code(s): Z79.01 - halfway (current) use of 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
== END 2024-05-22 13:36 | disposition home or self-care (01) ==
LOC: HO.ACS 13:21
PROVIDERS: PCP Internal Medicine; Visit Provider Internal Medicine
DX: Z79.01 Long term (current) use of anticoagulants (principal)

== ENCOUNTER → 2024-05-22 13:21 | Outpatient (BNVA) | payer BC, SELFPAY | PROVIDERS: PCP Internal Medicine; Visit Provider Internal Medicine | DX: I82.411 Acute embolism and thrombosis of right femoral vein (principal); I26.99 Other pulmonary embolism without acute cor pulmonale; Z51.81 Encounter for therapeutic drug level monitoring; Z79.01 Long term (current) use of anticoagulants | CPT/HCPCS: 85610; 99211 ==

== ENCOUNTER 2024-05-27 08:04 | Outpatient (AMB) | payer BC, SELFPAY ==
[2024-05-27 08:12] LABS: Prothrombin Time Whole Bld POC 26.7 sec (11.1-13.5); ~PT, ~INR - Anti Coag Clinic 2.2 (0.9-1.1)
--- NOTE | 2024-05-27 08:17 | MHC.OFFVISCO ---
Intake Intake Visit Reasons: Anticoagulation Allergies enoxaparin Adverse Reaction (Mild, Verified 05/27/24 08:07) Headache Medication List - Last Reconciled 05/27/24 by Aye Johnson RN aspirin 81 mg PO BEDTIME loratadine (Allergy Relief (loratadine)) 10 mg PO DAILY multivitamin 1 tab PO DAILY phenytoin sodium extended 200 mg PO BID psyllium husk (aspartame) 3.4 gram/5.8 gram (Metamucil Sugar-Free (aspartame)) 3.4 ea PO DAILY rosuvastatin 40 mg PO DAILY warfarin 10 mg See Protocol PO DAILY 30 days Nursing Note INR: 2.2 in therapeutic range Medications and supplements reviewed No changes in health, diet, medications, or supplements, Denies any signs and symptoms of bleeding or bruising or clotting. Bleeding, bruising, clotting discussed Nutritional guidance given Dose: 10MG X 4 DAYS/ 7.5MG X 3 DAYS F/U INR: 1 WEEK Patient verbalizes understanding of instructions given Anti-Coag Initial Assessment Social Hx Patient Tobacco Use Status: Never used Tobacco alcohol intake: never Alcohol intake frequency: does not drink Cardiovascular Hx: HTN 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 Illness/Depression: No Coding Level of Care Code Est Patient Level 1 Diagnoses Current use of anticoagulant therapy Z79.01 Assessment & Plan Assessment & Plan (1) Current use of anticoagulant therapy: Code(s): Z79.01 - snf (current) use of 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
== END 2024-05-27 08:20 | disposition home or self-care (01) ==
LOC: HO.ACS 08:04
PROVIDERS: PCP Internal Medicine; Visit Provider Internal Medicine
DX: Z79.01 Long term (current) use of anticoagulants (principal)

== ENCOUNTER → 2024-05-27 08:04 | Outpatient (BNVA) | payer BC, SELFPAY | PROVIDERS: PCP Internal Medicine; Visit Provider Internal Medicine | DX: I82.411 Acute embolism and thrombosis of right femoral vein (principal); I26.99 Other pulmonary embolism without acute cor pulmonale; Z51.81 Encounter for therapeutic drug level monitoring; Z79.01 Long term (current) use of anticoagulants | CPT/HCPCS: 85610; 99211 ==

== ENCOUNTER 2024-06-03 07:59 | Outpatient (AMB) | payer BC, SELFPAY ==
[2024-06-03 08:05] LABS: Prothrombin Time Whole Bld POC 34.3 sec (11.1-13.5); ~PT, ~INR - Anti Coag Clinic 2.9 (0.9-1.1)
--- NOTE | 2024-06-03 08:10 | MHC.OFFVISCO ---
Intake Intake Visit Reasons: Anticoagulation Allergies enoxaparin Adverse Reaction (Mild, Verified 05/27/24 08:07) Headache Nursing Note INR: 2.9 in therapeutic range Medications and supplements reviewed No changes in health, diet, medications, or supplements, Denies any signs and symptoms of bleeding or bruising or clotting. Bleeding, bruising, clotting discussed Nutritional guidance given - RESUME USUAL GREENS Dose: 10MG X 4 DAYS/ 7.5MG X 3 DAYS F/U INR: 1 WEEK Patient verbalizes understanding of instructions given Anti-Coag Initial Assessment Social Hx Patient Tobacco Use Status: Never used Tobacco alcohol intake: never Alcohol intake frequency: does not drink Cardiovascular Hx: HTN 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
== END 2024-06-03 08:12 | disposition home or self-care (01) ==
LOC: HO.ACS 07:59
PROVIDERS: PCP Internal Medicine; Visit Provider Internal Medicine
DX: Z79.01 Long term (current) use of anticoagulants (principal)

== ENCOUNTER → 2024-06-03 07:59 | Outpatient (BNVA) | payer BC, SELFPAY | PROVIDERS: PCP Internal Medicine; Visit Provider Internal Medicine | DX: I82.411 Acute embolism and thrombosis of right femoral vein (principal); I26.99 Other pulmonary embolism without acute cor pulmonale; Z51.81 Encounter for therapeutic drug level monitoring; Z79.01 Long term (current) use of anticoagulants | CPT/HCPCS: 85610; 99211 ==

== ENCOUNTER 2024-06-10 08:31 | Outpatient (AMB) | payer BC, SELFPAY ==
[2024-06-10 08:38] LABS: Prothrombin Time Whole Bld POC 32.3 sec (11.1-13.5); ~PT, ~INR - Anti Coag Clinic 2.7 (0.9-1.1)
--- NOTE | 2024-06-10 08:46 | MHC.OFFVISCO ---
Intake Intake Visit Reasons: Anticoagulation Allergies enoxaparin Adverse Reaction (Mild, Verified 06/10/24 08:34) Headache Medication List - Last Reconciled 06/10/24 by Sayra Fitch RN aspirin 81 mg PO BEDTIME loratadine (Allergy Relief (loratadine)) 10 mg PO DAILY multivitamin 1 tab PO DAILY phenytoin sodium extended 200 mg PO BID psyllium husk (aspartame) 3.4 gram/5.8 gram (Metamucil Sugar-Free (aspartame)) 3.4 ea PO DAILY rosuvastatin 40 mg PO DAILY warfarin 10 mg See Protocol PO DAILY 30 days Nursing Note NO CP,SOB,DIET/MED CHANGES,FALLS OR SX OF BLEEDING. CONTINUE PRESENT DOSE AND FOLLOW-UP IN 10 DAYS GOOD UNDERSTANDING OF DOSING INSTR. 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
== END 2024-06-10 08:48 | disposition home or self-care (01) ==
LOC: HO.ACS 08:31
PROVIDERS: PCP Internal Medicine; Visit Provider Internal Medicine
DX: Z79.01 Long term (current) use of anticoagulants (principal)

== ENCOUNTER → 2024-06-10 08:31 | Outpatient (BNVA) | payer BC, SELFPAY | PROVIDERS: PCP Internal Medicine; Visit Provider Internal Medicine | DX: I82.411 Acute embolism and thrombosis of right femoral vein (principal); I26.99 Other pulmonary embolism without acute cor pulmonale; Z51.81 Encounter for therapeutic drug level monitoring; Z79.01 Long term (current) use of anticoagulants | CPT/HCPCS: 85610; 99211 ==

== ENCOUNTER 2024-06-20 08:15 | Outpatient (AMB) | payer BC, SELFPAY ==
[2024-06-20 08:24] LABS: Prothrombin Time Whole Bld POC 32.1 sec (11.1-13.5); ~PT, ~INR - Anti Coag Clinic 2.7 (0.9-1.1)
--- NOTE | 2024-06-20 08:28 | MHC.OFFVISCO ---
Intake Intake Visit Reasons: Anticoagulation Allergies enoxaparin Adverse Reaction (Mild, Verified 06/20/24 08:18) Headache Medication List - Last Reconciled 06/20/24 by Aye Johnson RN aspirin 81 mg PO BEDTIME loratadine (Allergy Relief (loratadine)) 10 mg PO DAILY multivitamin 1 tab PO DAILY phenytoin sodium extended 200 mg PO BID psyllium husk (aspartame) 3.4 gram/5.8 gram (Metamucil Sugar-Free (aspartame)) 3.4 ea PO DAILY rosuvastatin 40 mg PO DAILY warfarin 10 mg See Protocol PO DAILY 30 days Nursing Note INR: 2.7 in therapeutic range Medications and supplements reviewed PT Had lab work confirming no Facto v clotting disorder No changes in health, diet, medications, or supplements, Denies any signs and symptoms of bleeding or bruising or clotting. 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 Illness/Depression: No Coding Level of Care Code Est Patient Level 1 Diagnoses Current use of anticoagulant therapy Z79.01 Assessment & Plan Assessment & Plan (1) Current use of anticoagulant therapy: Code(s): Z79.01 - penitentiary (current) use of 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
== END 2024-06-20 08:30 | disposition home or self-care (01) ==
PROVIDERS: PCP Internal Medicine; Visit Provider Internal Medicine
DX: Z79.01 Long term (current) use of anticoagulants (principal)

== ENCOUNTER → 2024-06-20 08:15 | Outpatient (BNVA) | payer BC, SELFPAY | PROVIDERS: PCP Internal Medicine; Visit Provider Internal Medicine | DX: I82.411 Acute embolism and thrombosis of right femoral vein (principal); I26.99 Other pulmonary embolism without acute cor pulmonale; Z51.81 Encounter for therapeutic drug level monitoring; Z79.01 Long term (current) use of anticoagulants | CPT/HCPCS: 85610; 99211 ==

== ENCOUNTER 2024-07-01 07:59 | Outpatient (AMB) | payer BC, SELFPAY ==
--- NOTE | 2024-07-01 08:09 | MHC.OFFVISCO ---
Intake Intake Visit Reasons: Anticoagulation Allergies enoxaparin Adverse Reaction (Mild, Verified 07/01/24 08:04) Headache Medication List - Last Reconciled 07/01/24 by Sarah Hayes RN aspirin 81 mg PO BEDTIME loratadine (Allergy Relief (loratadine)) 10 mg PO DAILY multivitamin 1 tab PO DAILY phenytoin sodium extended 200 mg PO BID psyllium husk (aspartame) 3.4 gram/5.8 gram (Metamucil Sugar-Free (aspartame)) 3.4 ea PO DAILY rosuvastatin 40 mg PO DAILY warfarin 10 mg See Protocol PO DAILY 30 days Nursing Note INR: 2.8- in therapeutic range of 2-3 Medications and supplements reviewed No changes in health, diet, medications, or supplements, Denies any signs and symptoms of bleeding or bruising or clotting. 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
[2024-07-01 08:10] LABS: Prothrombin Time Whole Bld POC 33.1 sec (11.1-13.5); ~PT, ~INR - Anti Coag Clinic 2.8 (0.9-1.1)
== END 2024-07-01 08:33 | disposition home or self-care (01) ==
LOC: HO.ACS 07:59
PROVIDERS: PCP Internal Medicine; Visit Provider Internal Medicine
DX: Z79.01 Long term (current) use of anticoagulants (principal)

== ENCOUNTER → 2024-07-01 07:59 | Outpatient (BNVA) | payer BC, SELFPAY | PROVIDERS: PCP Internal Medicine; Visit Provider Internal Medicine | DX: I82.411 Acute embolism and thrombosis of right femoral vein (principal); I26.99 Other pulmonary embolism without acute cor pulmonale; Z51.81 Encounter for therapeutic drug level monitoring; Z79.01 Long term (current) use of anticoagulants | CPT/HCPCS: 85610; 99211 ==

== ENCOUNTER 2024-07-16 08:14 | Outpatient (AMB) | payer BC, SELFPAY ==
--- NOTE | 2024-07-16 08:32 | MHC.OFFVISCO ---
Intake Intake Visit Reasons: Anticoagulation Allergies enoxaparin Adverse Reaction (Mild, Verified 07/16/24 08:49) Headache Medication List - Last Reconciled 07/16/24 by Mayela Connelly RN aspirin 81 mg PO BEDTIME loratadine (Allergy Relief (loratadine)) 10 mg PO DAILY multivitamin 1 tab PO DAILY phenytoin sodium extended 200 mg PO BID psyllium husk (aspartame) 3.4 gram/5.8 gram (Metamucil Sugar-Free (aspartame)) 3.4 ea PO DAILY rosuvastatin 40 mg PO DAILY warfarin 10 mg See Protocol PO DAILY 30 days Nursing Note INR 1.9?out of therapeutic range of 2-3 Medications and supplements reviewed Patient status: feels well Medications or supplements: no changes Diet: usual diet for pt Denies any signs and symptoms of bleeding or clotting or unusual bruising Bleeding, bruising, clotting discussed Nutritional guidance given: no greens next 2 days. Food list reviewed and pt to have food from the list that raises the INR Dose: 10mg today(usual dose0, 10mg tomorrow(7.5mg) then resume usual dose of 10mg X4 days and 7.5mg X 3 days F/U INR Date : 1 week?? Patient verbalizing understanding of instructions given. 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 Illness/Depression: No Coding Level of Care Code Est Patient Level 1 Diagnoses Current use of anticoagulant therapy Z79.01 Assessment & Plan Assessment & Plan (1) Current use of anticoagulant therapy: Code(s): Z79.01 - correction (current) use of 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
[2024-07-16 08:39] LABS: Prothrombin Time Whole Bld POC 23.3 sec (11.1-13.5); ~PT, ~INR - Anti Coag Clinic 1.9 (0.9-1.1)
== END 2024-07-16 08:49 | disposition home or self-care (01) ==
LOC: HO.ACS 08:14
PROVIDERS: PCP Internal Medicine; Visit Provider Internal Medicine
DX: Z79.01 Long term (current) use of anticoagulants (principal)

== ENCOUNTER → 2024-07-16 08:14 | Outpatient (BNVA) | payer BC, SELFPAY | PROVIDERS: PCP Internal Medicine; Visit Provider Internal Medicine | DX: I82.411 Acute embolism and thrombosis of right femoral vein (principal); I26.99 Other pulmonary embolism without acute cor pulmonale; Z79.01 Long term (current) use of anticoagulants; Z51.81 Encounter for therapeutic drug level monitoring | CPT/HCPCS: 85610; 99211 ==

== ENCOUNTER 2024-07-29 08:11 | Outpatient (AMB) | payer BC, SELFPAY ==
[2024-07-29 08:24] LABS: Prothrombin Time Whole Bld POC 26.9 sec (11.1-13.5); ~PT, ~INR - Anti Coag Clinic 2.2 (0.9-1.1)
--- NOTE | 2024-07-29 08:34 | MHC.OFFVISCO ---
Intake Intake Visit Reasons: Anticoagulation Allergies enoxaparin Adverse Reaction (Mild, Verified 07/29/24 08:18) Headache Medication List - Last Reconciled 07/29/24 by Mayela Connelly RN aspirin 81 mg PO BEDTIME loratadine (Allergy Relief (loratadine)) 10 mg PO DAILY multivitamin 1 tab PO DAILY phenytoin sodium extended 200 mg PO BID psyllium husk (aspartame) 3.4 gram/5.8 gram (Metamucil Sugar-Free (aspartame)) 3.4 ea PO DAILY rosuvastatin 40 mg PO DAILY warfarin 10 mg See Protocol PO DAILY 30 days Nursing Note INR: 2.2 in therapeutic range of 2-3 Medications and supplements reviewed No changes in health, diet, medications, or supplements, Denies any signs and symptoms of bleeding or bruising or clotting. Bleeding, bruising, clotting discussed Nutritional guidance given to balance foods that raise and foods that lower the INR. Pt has not been having salads and wants to add them back into his diet. Weekly dose raised for this reason. Food list reviewed with pt. 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 Illness/Depression: No Coding Level of Care Code Est Patient Level 1 Diagnoses Current use of anticoagulant therapy Z79.01 Results AMB INR Fingerstick AMB INR Fingerstick 2.2 Last Edit by Mayela Connelly RN on 07/29/24 08:30 interface delay Assessment & Plan Assessment & Plan (1) Current use of anticoagulant therapy: Code(s): Z79.01 - group home (current) use of 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
== END 2024-07-29 08:37 | disposition home or self-care (01) ==
LOC: HO.ACS 08:11
PROVIDERS: PCP Internal Medicine; Visit Provider Internal Medicine
DX: Z79.01 Long term (current) use of anticoagulants (principal)

== ENCOUNTER → 2024-07-29 08:11 | Outpatient (BNVA) | payer BC, SELFPAY | PROVIDERS: PCP Internal Medicine; Visit Provider Internal Medicine | DX: I82.411 Acute embolism and thrombosis of right femoral vein (principal); I26.99 Other pulmonary embolism without acute cor pulmonale; Z79.01 Long term (current) use of anticoagulants; Z51.81 Encounter for therapeutic drug level monitoring | CPT/HCPCS: 85610; 99211 ==

== ENCOUNTER 2024-08-05 08:12 | Outpatient (AMB) | payer BC, SELFPAY ==
[2024-08-05 08:18] LABS: Prothrombin Time Whole Bld POC 26.4 sec (11.1-13.5); ~PT, ~INR - Anti Coag Clinic 2.2 (0.9-1.1)
--- NOTE | 2024-08-05 08:21 | MHC.OFFVISCO ---
Intake Intake Visit Reasons: Anticoagulation Allergies enoxaparin Adverse Reaction (Mild, Verified 08/05/24 08:13) Headache Medication List - Last Reconciled 08/05/24 by Mayela Connelly RN aspirin 81 mg PO BEDTIME loratadine (Allergy Relief (loratadine)) 10 mg PO DAILY multivitamin 1 tab PO DAILY phenytoin sodium extended 200 mg PO BID psyllium husk (aspartame) 3.4 gram/5.8 gram (Metamucil Sugar-Free (aspartame)) 3.4 ea PO DAILY rosuvastatin 40 mg PO DAILY warfarin 10 mg See Protocol PO DAILY 30 days Nursing Note INR: 2.2 in therapeutic range of 2-3 Medications and supplements reviewed No changes in health, diet, medications, or supplements, Denies any signs and symptoms of bleeding or bruising or clotting. Bleeding, bruising, clotting discussed Nutritional guidance given to continue to balance foods that raise the INR with foods that lower the INR. Pt has been increasing greens in his diet and dose adjusted accordingly. 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
== END 2024-08-05 08:24 | disposition home or self-care (01) ==
LOC: HO.ACS 08:12
PROVIDERS: PCP Internal Medicine; Visit Provider Internal Medicine
DX: Z79.01 Long term (current) use of anticoagulants (principal)

== ENCOUNTER → 2024-08-05 08:12 | Outpatient (BNVA) | payer BC, SELFPAY | PROVIDERS: PCP Internal Medicine; Visit Provider Internal Medicine | DX: I82.411 Acute embolism and thrombosis of right femoral vein (principal); I26.99 Other pulmonary embolism without acute cor pulmonale; Z79.01 Long term (current) use of anticoagulants; Z51.81 Encounter for therapeutic drug level monitoring | CPT/HCPCS: 85610; 99211 ==

== ENCOUNTER 2024-08-19 08:05 | Outpatient (AMB) | payer BC, SELFPAY ==
[2024-08-19 08:14] LABS: Prothrombin Time Whole Bld POC 23.6 sec (11.1-13.5)
--- NOTE | 2024-08-19 08:20 | MHC.OFFVISCO ---
Intake Intake Visit Reasons: Anticoagulation Allergies enoxaparin Adverse Reaction (Mild, Verified 08/19/24 08:08) Headache Medication List - Last Reconciled 08/19/24 by Mayela Connelly RN aspirin 81 mg PO BEDTIME loratadine (Allergy Relief (loratadine)) 10 mg PO DAILY multivitamin 1 tab PO DAILY phenytoin sodium extended 200 mg PO BID psyllium husk (aspartame) 3.4 gram/5.8 gram (Metamucil Sugar-Free (aspartame)) 3.4 ea PO DAILY rosuvastatin 40 mg PO DAILY warfarin 10 mg See Protocol PO DAILY 30 days Nursing Note INR: 2.0 in therapeutic range of 2-3 Medications and supplements reviewed No changes in health, diet, medications, or supplements, Denies any signs and symptoms of bleeding or bruising or clotting. Bleeding, bruising, clotting discussed Nutritional guidance given to avoid greens today and to have a serving of food from the list that raises the INR. Pt states he will have beets and carrots today. Then balance greens and reds. Dose: 10mg X 5 days and 7.5mg X 2 days. 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
== END 2024-08-19 08:22 | disposition home or self-care (01) ==
LOC: HO.ACS 08:05
PROVIDERS: PCP Internal Medicine; Visit Provider Internal Medicine
DX: Z79.01 Long term (current) use of anticoagulants (principal)

== ENCOUNTER → 2024-08-19 08:05 | Outpatient (BNVA) | payer BC, SELFPAY | PROVIDERS: PCP Internal Medicine; Visit Provider Internal Medicine | DX: I82.411 Acute embolism and thrombosis of right femoral vein (principal); I26.99 Other pulmonary embolism without acute cor pulmonale | CPT/HCPCS: 85610; 99211 ==

== ENCOUNTER 2024-09-02 08:20 | Outpatient (AMB) | payer BC, SELFPAY ==
[2024-09-02 08:35] LABS: Prothrombin Time Whole Bld POC 18.2 sec (11.1-13.5); ~PT, ~INR - Anti Coag Clinic 1.5 (0.9-1.1)
--- NOTE | 2024-09-02 08:37 | MHC.OFFVISCO ---
Intake Intake Visit Reasons: Anticoagulation Allergies enoxaparin Adverse Reaction (Mild, Verified 09/02/24 08:22) Headache Medication List - Last Reconciled 09/02/24 by Mayela Connelly RN aspirin 81 mg PO BEDTIME loratadine (Allergy Relief (loratadine)) 10 mg PO DAILY multivitamin 1 tab PO DAILY phenytoin sodium extended 200 mg PO BID psyllium husk (aspartame) 3.4 gram/5.8 gram (Metamucil Sugar-Free (aspartame)) 3.4 ea PO DAILY rosuvastatin 40 mg PO DAILY warfarin 10 mg See Protocol PO DAILY 30 days Nursing Note INR 1.5?out of therapeutic range of 2-3 Pt just came back from vacation and diet and exercise a little off routine. Medications and supplements reviewed Patient status: feels well Medications or supplements: no changes Diet: pt states mostly routine diet but was on vacation Denies any signs and symptoms of bleeding or clotting or unusual bruising Bleeding, bruising, clotting discussed Nutritional guidance given: to avoid greens today Dose: increase today's dose to 12.5mg (10mg) and 10mg (7.5mg) then usual dose of 10mg then return to [facility] F/U INR Date : 3 days?? Patient verbalizing understanding of instructions given. Dr Marvin Carter notified and she ordered lovenox bid for 3 days. Order verified and then T/C to pt to inform him of new script for lovenox bid for 3 days. 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 Illness/Depression: No Coding Level of Care Code Est Patient Level 1 Diagnoses Current use of anticoagulant therapy Z79.01 Results AMB INR Fingerstick AMB INR Fingerstick 1.5 Last Edit by Mayela Connelly RN on 09/02/24 08:30 interface delay Assessment & Plan Assessment & Plan (1) Current use of anticoagulant therapy: Code(s): Z79.01 - nursing home (current) use of 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
== END 2024-09-02 13:03 | disposition home or self-care (01) ==
LOC: HO.ACS 08:20
PROVIDERS: PCP Internal Medicine; Visit Provider Internal Medicine
DX: Z79.01 Long term (current) use of anticoagulants (principal)

== ENCOUNTER → 2024-09-02 08:20 | Outpatient (BNVA) | payer BC, SELFPAY | PROVIDERS: PCP Internal Medicine; Visit Provider Internal Medicine | DX: I82.411 Acute embolism and thrombosis of right femoral vein (principal); I26.99 Other pulmonary embolism without acute cor pulmonale; Z79.01 Long term (current) use of anticoagulants; Z51.81 Encounter for therapeutic drug level monitoring | CPT/HCPCS: 85610; 99211 ==

== ENCOUNTER 2024-09-03 21:56 | Emergency (ER) | payer BC, SELFPAY ==
--- NOTE | ~2024-09-03 | XR_ITS ---
EXAMINATION: XR CHEST CLINICAL INFORMATION: Shortness of breath. COMPARISON: None available. TECHNIQUE: 2 views of the chest were obtained. FINDINGS: No significant abnormality is noted involving the heart, lungs, mediastinum, bony thorax or soft tissues. XR/XR chest 2V IMPRESSION: Unremarkable examination. Electronically signed by: Arvind Soria MD 09/03/2024 11:22 PM EDT RP
[2024-09-03 22:02] VITALS: BP 146/89; PULSE 85; RESP 18; TEMP 37.4; O2SAT 95; BMI 25.1
[2024-09-03 22:30] LABS: MANUAL DIFF FLAG NO
[2024-09-03 22:33] LABS: Basophils Percent Auto 0.5 % (0-2); Eosinophils Absolute Auto 0.1 X10*3/uL (0.0-0.4); Eosinophils Percent Auto 1.4 % (0-4); Hematocrit 40.5 % (42.0-52.0); Hemoglobin 13.9 g/dl (14.0-18.0); Imm Gran Abs Auto 0.01 X10*3/uL (0.00-0.03); Imm Gran Pct Auto 0.2 % (0.0-0.4); Lymphocytes Absolute Auto 1.9 X10*3/uL (1.2-4.9); Lymphocytes Percent Auto 44.7 % (20-40); Mean Corpuscular HGB Conc 34.3 g/dl (31.0-36.0); Mean Corpuscular Hemoglobin 30.5 pg (27.0-33.0); Mean Platelet Volume 9.4 fL (9.4-12.4); Monocytes Absolute Auto 0.4 X10*3/uL (0.1-1.2); Monocytes Percent Auto 10.1 % (2-11); Neutrophils Absolute Auto 1.8 x10*3/uL (2.0-8.3); Neutrophils Percent Auto 43.1 % (45-73); Platelet Count 192 X10*3/uL (160-400); Red Blood Count 4.55 X10*6/uL (4.60-5.80); White Blood Count 4.3 X10*3/uL (4.8-10.8)
[2024-09-03 22:39] LABS: Prothrombin Time 23.6 SEC (10.9-12.4)
[2024-09-03 22:43] LABS: D Dimer High Sensitivity < 150 NG/ML
[2024-09-03 22:49] LABS: Alanine Aminotransferase 48 U/L (0-40); Albumin Level 4.4 g/dL (3.5-5.0); Alkaline Phosphatase 86 U/L (39-117); Anion Gap 11 (12-20); Aspartate Amino Transferase 63 U/L (5-37); Bilirubin Total 0.2 mg/dL (0.0-1.0); Blood Urea Nitrogen 15 mg/dL (9-16); Calcium 9.2 mg/dL (8.4-10.2); Carbon Dioxide 31 mmol/L (22-29); Chloride 102 mmol/L (96-108); Creatinine Clr Calc Pharmacy 65.8; Estimated Glomerular Filt Rate 56; Glucose Random 96 mg/dL (60-115); Potassium 4.2 mmol/L (3.3-5.1); Sodium 140 mmol/L (135-145); Total Protein 7.1 g/dL (6.5-8.0)
[2024-09-04 00:55] VITALS: BP 110/65; PULSE 70; RESP 18; O2SAT 95
[2024-09-04 01:05] VITALS: BP 117/71; PULSE 75; RESP 16; TEMP 36.9; O2SAT 96
--- OUTSIDE RECORDS SUMMARY | 2024-09-04 01:08 | XMS_ITS | Continuity of Care Document ---
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
--- OUTSIDE RECORDS SUMMARY | 2024-09-04 01:08 | XMS_ITS | Continuity of Care Document ---
Author Organization [facility] Address [address] [place] [id number] Care Team Providers Care Matcher Offbearer Name Role Phone Kayleigh Ayala Primary Care Physician Encounter [facility] [place] Date(s): 02/28/22 - 05/05/22 [facility] [address] [place] [id number] Attending Physician: Jayne Daniel MD Admitting Physician: Jayne Daniel MD Referring Physician: Kayleigh Ayala Allergies, Adverse Reactions, Alerts No Known Allergies
--- NOTE | 2024-09-04 01:40 | ED.SOB ---
HPI - SOB/Dyspnea General Chief Complaint: Dyspnea Stated Complaint: Trouble breathing Time Seen by Provider: 09/04/24 01:31 Source: patient and family Mode of arrival: ambulatory Limitations: no limitations History of Present Illness ED Provider: bib US Narrative: Patient's history of DVT and PE on Coumadin , INR was 1.5 on 09/02, started on Lovenox for last 3 days came here for feeling short of breath was saturating 96% at room air started just a few hours prior to arrival patient has had labs done prior to my evaluation which showed D-dimer less than 150 Related Data Home Medications ?Medication ?Instructions ?Recorded ?Confirmed loratadine 10 mg tablet (Allergy 10 mg PO DAILY 10/20/20 09/02/24 Relief (loratadine)) phenytoin sodium extended 100 mg 200 mg PO BID 07/06/22 09/02/24 capsule multivitamin 1 tab PO DAILY 02/08/24 09/02/24 psyllium husk (aspartame) 3.4 3.4 ea PO DAILY 02/19/24 09/02/24 gram/5.8 gram oral powder (Metamucil Sugar-Free (aspartame)) aspirin 81 mg tablet,delayed 81 mg PO BEDTIME 05/07/24 09/02/24 release Previous Rx's ?Medication ?Instructions ?Recorded rosuvastatin 40 mg tablet 40 mg PO DAILY #90 tabs 04/14/24 warfarin 5 mg tablet 10 mg PO DAILY 30 days #60 tabs 05/13/24 enoxaparin 80 mg/0.8 mL 80 mg (0.8 mL) subcut Q12H 3 days 09/02/24 subcutaneous syringe (Lovenox) #4.8 mL Allergies Allergy/AdvReac Type Severity Reaction Status Date / Time enoxaparin AdvReac Mild Headache Verified 09/03/24 22:05 Review of Systems Review of Systems: Yes all other systems are reviewed and are negative PMFSH Past Medical History Medical History DVT (deep venous thrombosis) Pulmonary embolism Current use of anticoagulant therapy History of basal cell carcinoma Physical exam Thyroid nodule Dyspnea Allergic rhinitis Pure hypercholesterolemia Seizures Surgical History History of surgery History of colonoscopy H/O basal cell carcinoma excision Family History Family History Father Myocardial infarction Uncontrolled persistent asthma Mother COPD (chronic obstructive pulmonary disease) Breast cancer Sister Asthma Brain tumor Maternal Aunt Breast cancer Social History Social History Household Members: Spouse Housing: Condominium Housing Other:: lives with spouse Do you presently have visiting nurse or other home services: No Alcohol intake: never Patient Tobacco Use Status: Never used Tobacco Smoked in Last 30 Days: No e-Cigarette/Vaping Use: Never Used Second Hand Smoke Exposure: No Use of substances other than those prescribed or required for medical reasons: No Advance Directives: No Advance Directives Information Provided: Yes Do you have a plan to hurt others: No Plan service: No Current occupational status: unemployed and retired 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 Oriented X3. No acute distress. Eyes: No pallor or icterus ENT: Pharynx normal. Oral Mucosa moist Neck: Normal inspection. Neck supple. CVS: Normal heart rate and rhythm. Pulses normal. Respiratory: No respiratory distress. Equal air entry bilateral, no wheezing/rales/rhonchi Abdomen: Soft and nontender. Bowel sounds are present, no mass palpable, no CVA tenderness Skin: Skin warm and dry. Normal skin color. Normal skin turgor. Extremities: No lower extremity edema. No calf tenderness Neuro: Oriented X 3. No motor deficit. Medical Decision Making Medical Decision Making [facility] Narrative: Patient with subjective shortness a breath with history of PE INR of 2 on Lovenox D-dimer less than 150 unlikely to have new PE discharge patient home advised to continue treatment Differential Diagnosis Differential Diagnoses: The differential diagnosis associated with the presentation includes Lab Data MDM Lab Attestation statement: I reviewed the patient's lab results. 09/03/24 22:26 09/03/24 22:26 Labs: Lab Results 09/03/24 Range/Units 22:26 WBC 4.3 L (4.8-10.8) X10*3/uL RBC 4.55 L (4.60-5.80) X10*6/uL Hgb 13.9 L (14.0-18.0) g/dl Hct 40.5 L (42.0-52.0) % MCV 89.0 (80.0-98.0) fL MCH 30.5 (27.0-33.0) pg MCHC 34.3 (31.0-36.0) g/dl RDW 14.0 (11.0-16.0) % Plt Count 192 (160-400) X10*3/uL MPV 9.4 (9.4-12.4) fL Immature Gran % (Auto) 0.2 (0.0-0.4) % Neut % (Auto) 43.1 L (45-73) % Lymph % (Auto) 44.7 H (20-40) % [place] % (Auto) 10.1 (2-11) % Eos % (Auto) 1.4 (0-4) % Baso % (Auto) 0.5 (0-2) % Lymph # (Auto) 1.9 (1.2-4.9) X10*3/uL [place] # (Auto) 0.4 (0.1-1.2) X10*3/uL Eos # (Auto) 0.1 (0.0-0.4) X10*3/uL Baso # (Auto) 0.0 (0.0-0.2) X10*3/uL Abs Immat Gran (auto) 0.01 (0.00-0.03) X10*3/uL Absolute Neuts (auto) 1.8 L (2.0-8.3) x10*3/uL Absolute Nucleated RBC 0.000 (0.0-0.012) X10*3/uL Nucleated RBC % (auto) 0.0 (0.0-0.2) /100WBC PT 23.6 H (10.9-12.4) SEC INR 2.0 H (0.9-1.1) D-Dimer High Sensitivty < 150 NG/ML Sodium 140 (135-145) mmol/L Potassium 4.2 (3.3-5.1) mmol/L Chloride 102 (96-108) mmol/L Carbon Dioxide 31 H (22-29) mmol/L Anion Gap 11 L (12-20) BUN 15 (9-16) mg/dL Creatinine 1.31 (0.5-1.4) mg/dL Estim Creat Clear Calc 65.8 Estimated GFR 56 Random Glucose 96 (60-115) mg/dL Calcium 9.2 D (8.4-10.2) mg/dL Total Bilirubin 0.2 (0.0-1.0) mg/dL AST 63 H (5-37) U/L ALT 48 H (0-40) U/L Alkaline Phosphatase 86 (39-117) U/L Total Protein 7.1 (6.5-8.0) g/dL Albumin 4.4 (3.5-5.0) g/dL Discharge Plan Discharge Clinical Impression: Shortness of breath Patient Disposition: Home, Self-Care Instructions: Shortness of Breath (ED) Additional Instructions: Continue your Lovenox and Coumadin No shortness a breath is unlikely related to blood clot Your INR is 2.0 Follow up with your PCP Prescriptions: No Action rosuvastatin 40 mg tablet 40 mg PO DAILY Qty: 90 3RF warfarin 5 mg tablet 10 mg PO DAILY 30 Days Qty: 60 3RF Protocol: Dose Management Condition: Monday (Week One) Dose/Route: 10 mg Instruction: 2 x 5 mg tablets Condition: Monday Dose/Route: 12.5 mg Instruction: 2.5 x 5 mg tablets Condition: Monday Dose/Route: 10 mg Instruction: 2 x 5 mg tablets Condition: Monday Dose/Route: 10 mg Instruction: 2 x 5 mg tablets Condition: Dose/Route: 10 mg Instruction: 2 x 5 mg tablets Condition: Monday Dose/Route: 7.5 mg Instruction: 1.5 x 5 mg tablets Condition: Monday Dose/Route: 10 mg Instruction: 2 x 5 mg tablets Condition: Monday (Week Two) Dose/Route: 10 mg Instruction: 2 x 5 mg tablets Condition: Monday Dose/Route: 10 mg Instruction: 2 x 5 mg tablets Condition: Monday Dose/Route: 7.5 mg Instruction: 1.5 x 5 mg tablets Condition: Monday Dose/Route: 10 mg Instruction: 2 x 5 mg tablets Condition: Dose/Route: 10 mg Instruction: 2 x 5 mg tablets Condition: Monday Dose/Route: 7.5 mg Instruction: 1.5 x 5 mg tablets Condition: Monday Dose/Route: 10 mg Instruction: 2 x 5 mg tablets Protocol Text: Adjustment Start Date: Monday09/02/24 INR Value: 1.5 INR Date: 09/02/24 Recheck Date: 09/05/24 enoxaparin [Lovenox] 80 mg/0.8 mL syringe 80 mg subcut Q12H 3 Days Qty: 4.8 2RF multivitamin Tablet 1 tab PO DAILY aspirin 81 mg Tablet,Delayed Release (Dr/Ec) 81 mg PO BEDTIME loratadine [Allergy Relief (loratadine)] 10 mg tablet 10 mg PO DAILY phenytoin sodium extended 100 mg capsule 200 mg PO BID Patient Comments: 2 in the am 3 caps at pm Metamucil Sugar-Free (aspart) 3.4 gram/5.8 gram powder 3.4 ea PO DAILY Interventions: ED Discharge Assessment Last Done: 09/04/24 02:26 Discharge Date/Time: 09/04/24 02:27 Print Language: Azeri
[2024-09-04 02:26] VITALS: BP 117/71; PULSE 75; RESP 16; TEMP 36.9; O2SAT 96
== END 2024-09-04 02:27 | disposition home or self-care (01) ==
PROVIDERS: Emergency Provider Internal Medicine; PCP Internal Medicine
DX: R06.02 Shortness of breath (principal); E78.00 Pure hypercholesterolemia, unspecified; Z86.718 Personal history of other venous thrombosis and embolism; Z86.711 Personal history of pulmonary embolism; Z79.01 Long term (current) use of anticoagulants; Z79.82 Long term (current) use of aspirin; Z79.02 Long term (current) use of antithrombotics/antiplatelets; Z79.899 Other long term (current) drug therapy
CPT/HCPCS: 36415; 71046; 80053; 85025; 85379; 85610; 99283; 99284

== ENCOUNTER 2024-09-05 09:13 | Outpatient (AMB) | payer BC, SELFPAY ==
[2024-09-05 09:30] LABS: ~PT, ~INR - Anti Coag Clinic 2.1 (0.9-1.1)
--- NOTE | 2024-09-05 09:44 | MHC.OFFVISCO ---
Intake Intake Visit Reasons: Anticoagulation Allergies enoxaparin Adverse Reaction (Mild, Verified 09/05/24 09:24) Headache Medication List - Last Reconciled 09/05/24 by Sayra Fitch RN aspirin 81 mg PO BEDTIME enoxaparin (Lovenox) 80 mg (0.8 mL) subcut Q12H 3 days loratadine (Allergy Relief (loratadine)) 10 mg PO DAILY multivitamin 1 tab PO DAILY phenytoin sodium extended 200 mg PO BID psyllium husk (aspartame) 3.4 gram/5.8 gram (Metamucil Sugar-Free (aspartame)) 3.4 ea PO DAILY rosuvastatin 40 mg PO DAILY warfarin 10 mg See Protocol PO DAILY 30 days Nursing Note NO CP,SOB,DIET/MED CHANGES,FALLS OR SX OF BLEEDING. PT.STATES THAT HE WAS IN THE ED ON 09/02 WITH SOB. D/C SAME NIGHT WITH NO CHANGES MADE. HAS FINISHED 3 DAYS OF LOVENOX. INCREAE WEEKLY DOSE SLIGHTLY AND FOLLOW-UP IN 1 WEEK. GOOD UNDERSTANDING OF DOSING INSTR. 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 Illness/Depression: No Coding Level of Care Code Est Patient Level 1 Diagnoses Current use of anticoagulant therapy Z79.01 Assessment & Plan Assessment & Plan (1) Current use of anticoagulant therapy: Code(s): Z79.01 - retirement (current) use of 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
== END 2024-09-05 09:48 | disposition home or self-care (01) ==
LOC: HO.ACS 09:13
PROVIDERS: PCP Internal Medicine; Visit Provider Internal Medicine
DX: Z79.01 Long term (current) use of anticoagulants (principal)

== ENCOUNTER → 2024-09-05 09:13 | Outpatient (BNVA) | payer BC, SELFPAY | PROVIDERS: PCP Internal Medicine; Visit Provider Internal Medicine | DX: I82.411 Acute embolism and thrombosis of right femoral vein (principal); I26.99 Other pulmonary embolism without acute cor pulmonale; Z79.01 Long term (current) use of anticoagulants; Z51.81 Encounter for therapeutic drug level monitoring | CPT/HCPCS: 85610; 99211 ==

== ENCOUNTER 2024-09-11 09:15 | Outpatient (AMB) | payer BC, SELFPAY ==
--- NOTE | 2024-09-11 09:48 | MHC.OFFVISCO ---
Intake Intake Visit Reasons: Anticoagulation Allergies enoxaparin Adverse Reaction (Mild, Verified 09/11/24 09:40) Headache Medication List - Last Reconciled 09/11/24 by Sarah Hayes RN aspirin 81 mg PO BEDTIME loratadine (Allergy Relief (loratadine)) 10 mg PO DAILY multivitamin 1 tab PO DAILY phenytoin sodium extended 200 mg PO BID psyllium husk (aspartame) 3.4 gram/5.8 gram (Metamucil Sugar-Free (aspartame)) 3.4 ea PO DAILY rosuvastatin 40 mg PO DAILY warfarin 10 mg See Protocol PO DAILY 30 days Nursing Note INR: 2.8- in therapeutic range of 2-3 Medications and supplements reviewed No changes in health, diet, medications, or supplements, Denies any signs and symptoms of bleeding or bruising or clotting. Bleeding, bruising, clotting discussed Nutritional guidance given Dose: 10mg x 6, 7.5mg x 1 pt states took 7.5mg on F/U INR: 10 days Patient verbalizes understanding of instructions given Anti-Coag Initial Assessment Social Hx Patient Tobacco Use Status: Never used Tobacco alcohol intake: never Alcohol intake frequency: does not drink Cardiovascular Hx: HTN 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 Illness/Depression: No Coding Level of Care Code Est Patient Level 1 Diagnoses Current use of anticoagulant therapy Z79.01 Assessment & Plan Assessment & Plan (1) Current use of anticoagulant therapy: Code(s): Z79.01 - halfway (current) use of 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
[2024-09-11 09:49] LABS: ~PT, ~INR - Anti Coag Clinic 2.8 (0.9-1.1)
== END 2024-09-11 09:58 | disposition home or self-care (01) ==
LOC: HO.ACS 09:15
PROVIDERS: PCP Internal Medicine; Visit Provider Internal Medicine
DX: Z79.01 Long term (current) use of anticoagulants (principal)

== ENCOUNTER → 2024-09-11 09:15 | Outpatient (BNVA) | payer BC, SELFPAY | PROVIDERS: PCP Internal Medicine; Visit Provider Internal Medicine | DX: I82.411 Acute embolism and thrombosis of right femoral vein (principal); I26.99 Other pulmonary embolism without acute cor pulmonale; Z79.01 Long term (current) use of anticoagulants; Z51.81 Encounter for therapeutic drug level monitoring | CPT/HCPCS: 85610; 99211 ==

== ENCOUNTER 2024-09-20 08:58 | Outpatient (AMB) | payer BC, SELFPAY ==
[2024-09-20 09:07] LABS: ~PT, ~INR - Anti Coag Clinic 1.6 (0.9-1.1)
--- NOTE | 2024-09-20 09:19 | MHC.OFFVISCO ---
Intake Intake Visit Reasons: Anticoagulation Allergies enoxaparin Adverse Reaction (Mild, Verified 09/20/24 09:02) Headache Medication List - Last Reconciled 09/20/24 by Mayela Connelly RN aspirin 81 mg PO BEDTIME loratadine (Allergy Relief (loratadine)) 10 mg PO DAILY multivitamin 1 tab PO DAILY phenytoin sodium extended 200 mg PO BID psyllium husk (aspartame) 3.4 gram/5.8 gram (Metamucil Sugar-Free (aspartame)) 3.4 ea PO DAILY rosuvastatin 40 mg PO DAILY warfarin 10 mg See Protocol PO DAILY 30 days Nursing Note INR 1.6?out of therapeutic range of 2-3 Medications and supplements reviewed Patient status: feels well Medications or supplements: no changes Diet: pt states his usual diet Denies any signs and symptoms of bleeding or clotting or unusual bruising Bleeding, bruising, clotting discussed Nutritional guidance given: food list reviewed. Pt to avoid greens for 2 days and will have foods from the list that raises the INR Dose: increase today's dose to 12.5mg (10mg) then 10mg tomorrow and the next day, then re-test. F/U INR Date : 09/23/24?? Patient verbalizing understanding of instructions given. 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
== END 2024-09-20 09:23 | disposition home or self-care (01) ==
LOC: HO.ACS 08:58
PROVIDERS: PCP Internal Medicine; Visit Provider Internal Medicine
DX: Z79.01 Long term (current) use of anticoagulants (principal)

== ENCOUNTER → 2024-09-20 08:58 | Outpatient (BNVA) | payer BC, SELFPAY | PROVIDERS: PCP Internal Medicine; Visit Provider Internal Medicine | DX: I82.411 Acute embolism and thrombosis of right femoral vein (principal); I26.99 Other pulmonary embolism without acute cor pulmonale; Z79.01 Long term (current) use of anticoagulants; Z51.81 Encounter for therapeutic drug level monitoring | CPT/HCPCS: 85610; 99211 ==

== ENCOUNTER 2024-09-23 08:33 | Outpatient (AMB) | payer BC, SELFPAY ==
--- NOTE | 2024-09-23 09:00 | MHC.OFFVISCO ---
Intake Intake Visit Reasons: Anticoagulation Allergies enoxaparin Adverse Reaction (Mild, Verified 09/23/24 08:49) Headache Medication List - Last Reconciled 09/23/24 by Mayela Connelly RN aspirin 81 mg PO BEDTIME loratadine (Allergy Relief (loratadine)) 10 mg PO DAILY multivitamin 1 tab PO DAILY phenytoin sodium extended 200 mg PO BID psyllium husk (aspartame) 3.4 gram/5.8 gram (Metamucil Sugar-Free (aspartame)) 3.4 ea PO DAILY rosuvastatin 40 mg PO DAILY warfarin 10 mg See Protocol PO DAILY 30 days Nursing Note INR 1.9?out of therapeutic range of 2-3 Medications and supplements reviewed Patient status: well Medications or supplements: no change Diet: pt has been avoiding greens and had carrots and beets to raise the INR which was 1.6 3 days ago Denies any signs and symptoms of bleeding or clotting or unusual bruising Bleeding, bruising, clotting discussed Nutritional guidance given: to continue to avoid greens the next 1-2 days and have the foods that raise the INR the next 1-2 days then balance Dose: 10mg daily F/U INR Date : 2 weeks?? Patient verbalizing understanding of instructions given. 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
[2024-09-23 09:01] LABS: Prothrombin Time Whole Bld POC 22.6 sec (11.1-13.5); ~PT, ~INR - Anti Coag Clinic 1.9 (0.9-1.1)
== END 2024-09-23 09:04 | disposition home or self-care (01) ==
LOC: HO.ACS 08:33
PROVIDERS: PCP Internal Medicine; Visit Provider Internal Medicine
DX: Z79.01 Long term (current) use of anticoagulants (principal)

== ENCOUNTER → 2024-09-23 08:33 | Outpatient (BNVA) | payer BC, SELFPAY | PROVIDERS: PCP Internal Medicine; Visit Provider Internal Medicine | DX: I82.411 Acute embolism and thrombosis of right femoral vein (principal); I26.99 Other pulmonary embolism without acute cor pulmonale; Z79.01 Long term (current) use of anticoagulants; Z51.81 Encounter for therapeutic drug level monitoring | CPT/HCPCS: 85610; 99211 ==

== ENCOUNTER 2024-10-07 08:59 | Outpatient (REF) | payer BC, SELFPAY ==
[2024-10-07 11:04] LABS: Phenytoin Dilantin 17.3 ug/mL (10.0-20.0)
== END 2024-10-07 09:00 | disposition home or self-care (01) ==
LOC: HO.LAB 08:59
PROVIDERS: Absent Provider Psychiatry & Neurology Neurology; PCP Internal Medicine; Visit Provider Internal Medicine
DX: G40.909 Epilepsy, unspecified, not intractable, without status epilepticus (principal); Z79.01 Long term (current) use of anticoagulants
CPT/HCPCS: 36415; 80185; 85610; 99211

== ENCOUNTER 2024-10-07 08:59 | Outpatient (AMB) | payer BC, SELFPAY ==
--- NOTE | 2024-10-07 09:10 | MHC.OFFVISCO ---
Intake Intake Visit Reasons: Anticoagulation Allergies enoxaparin Adverse Reaction (Mild, Verified 10/07/24 09:00) Headache Medication List - Last Reconciled 10/07/24 by Mayela Connelly RN aspirin 81 mg PO BEDTIME loratadine (Allergy Relief (loratadine)) 10 mg PO DAILY multivitamin 1 tab PO DAILY phenytoin sodium extended 200 mg PO BID psyllium husk (aspartame) 3.4 gram/5.8 gram (Metamucil Sugar-Free (aspartame)) 3.4 ea PO DAILY rosuvastatin 40 mg PO DAILY warfarin 10 mg See Protocol PO DAILY 30 days Nursing Note INR: 2.0 in therapeutic range of 2-3 Medications and supplements reviewed No changes in health, diet, medications, or supplements, Denies any signs and symptoms of bleeding or bruising or clotting. Bleeding, bruising, clotting discussed Nutritional guidance given Dose: increase weekly dose by 2.5mg to 10mg X 6 days and 12.5mg X 1 day F/U INR: 1 week Patient verbalizes understanding of instructions given Anti-Coag Initial Assessment Social Hx Patient Tobacco Use Status: Never used Tobacco alcohol intake: never Alcohol intake frequency: does not drink Cardiovascular Hx: HTN 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
== END 2024-10-07 09:12 | disposition home or self-care (01) ==
LOC: HO.ACS 08:59
PROVIDERS: PCP Internal Medicine; Visit Provider Internal Medicine
DX: Z79.01 Long term (current) use of anticoagulants (principal)

== ENCOUNTER 2024-10-14 09:22 | Outpatient (AMB) | payer BC, SELFPAY ==
[2024-10-14 09:27] LABS: Prothrombin Time Whole Bld POC 25.7 sec (11.1-13.5); ~PT, ~INR - Anti Coag Clinic 2.1 (0.9-1.1)
--- NOTE | 2024-10-14 09:34 | MHC.OFFVISCO ---
Intake Intake Visit Reasons: Anticoagulation Allergies enoxaparin Adverse Reaction (Mild, Verified 10/14/24 09:23) Headache Medication List - Last Reconciled 10/14/24 by Mayela Connelly RN aspirin 81 mg PO BEDTIME loratadine (Allergy Relief (loratadine)) 10 mg PO DAILY multivitamin 1 tab PO DAILY phenytoin sodium extended 200 mg PO BID psyllium husk (aspartame) 3.4 gram/5.8 gram (Metamucil Sugar-Free (aspartame)) 3.4 ea PO DAILY rosuvastatin 40 mg PO DAILY warfarin 10 mg See Protocol PO DAILY 30 days Nursing Note INR: 2.1 in therapeutic range of 2-3 Medications and supplements reviewed No changes in health, diet, medications, or supplements, Denies any signs and symptoms of bleeding or bruising or clotting. Bleeding, bruising, clotting discussed Nutritional guidance given Dose: dose increased to 12.5mg X 2 days and 10mg X 5 days F/U INR: 1 week Patient verbalizes understanding of instructions given Anti-Coag Initial Assessment Social Hx Patient Tobacco Use Status: Never used Tobacco alcohol intake: never Alcohol intake frequency: does not drink Cardiovascular Hx: HTN 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 Illness/Depression: No Coding Level of Care Code Est Patient Level 1 Diagnoses Current use of anticoagulant therapy Z79.01 Assessment & Plan Assessment & Plan (1) Current use of anticoagulant therapy: Code(s): Z79.01 - [facility] (current) use of 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
== END 2024-10-14 09:35 | disposition home or self-care (01) ==
LOC: HO.ACS 09:22
PROVIDERS: PCP Internal Medicine; Visit Provider Internal Medicine
DX: Z79.01 Long term (current) use of anticoagulants (principal)

== ENCOUNTER → 2024-10-14 09:22 | Outpatient (BNVA) | payer BC, SELFPAY | PROVIDERS: PCP Internal Medicine; Visit Provider Internal Medicine | DX: I26.99 Other pulmonary embolism without acute cor pulmonale (principal); I82.411 Acute embolism and thrombosis of right femoral vein; Z79.01 Long term (current) use of anticoagulants; Z51.81 Encounter for therapeutic drug level monitoring | CPT/HCPCS: 85610; 99211 ==

== ENCOUNTER 2024-10-21 08:32 | Outpatient (AMB) | payer BC, SELFPAY ==
[2024-10-21 08:50] LABS: ~PT, ~INR - Anti Coag Clinic 2.3 (0.9-1.1)
--- NOTE | 2024-10-21 08:55 | MHC.OFFVISCO ---
Intake Intake Visit Reasons: Anticoagulation Allergies enoxaparin Adverse Reaction (Mild, Verified 10/21/24 08:46) Headache Medication List - Last Reconciled 10/21/24 by Mayela Connelly RN aspirin 81 mg PO BEDTIME loratadine (Allergy Relief (loratadine)) 10 mg PO DAILY multivitamin 1 tab PO DAILY phenytoin sodium extended 200 mg PO BID psyllium husk (aspartame) 3.4 gram/5.8 gram (Metamucil Sugar-Free (aspartame)) 3.4 ea PO DAILY rosuvastatin 40 mg PO DAILY warfarin 10 mg See Protocol PO DAILY 30 days Nursing Note INR: 2.3 in therapeutic range of 2-3 Medications and supplements reviewed No changes in health, diet, medications, or supplements, Denies any signs and symptoms of bleeding or bruising or clotting. Bleeding, bruising, clotting discussed Nutritional guidance given Dose: weekly dose increased so pt can start having greens, he has avoided them because INR has been low or borderline low. Pt will take 10mg X 4 days and 12.5mg X 3 days F/U INR: 1 week Patient verbalizes understanding of instructions given Anti-Coag Initial Assessment Social Hx Patient Tobacco Use Status: Never used Tobacco alcohol intake: never Alcohol intake frequency: does not drink Cardiovascular Hx: HTN 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 Illness/Depression: No Coding Level of Care Code Est Patient Level 1 Diagnoses Current use of anticoagulant therapy Z79.01 Assessment & Plan Assessment & Plan (1) Current use of anticoagulant therapy: Code(s): Z79.01 - [facility] (current) use of 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
== END 2024-10-21 08:57 | disposition home or self-care (01) ==
LOC: HO.ACS 08:32
PROVIDERS: PCP Internal Medicine; Visit Provider Internal Medicine
DX: Z79.01 Long term (current) use of anticoagulants (principal)

== ENCOUNTER → 2024-10-21 08:32 | Outpatient (BNVA) | payer BC, SELFPAY | PROVIDERS: PCP Internal Medicine; Visit Provider Internal Medicine | DX: I82.411 Acute embolism and thrombosis of right femoral vein (principal); I26.99 Other pulmonary embolism without acute cor pulmonale; Z79.01 Long term (current) use of anticoagulants; Z51.81 Encounter for therapeutic drug level monitoring | CPT/HCPCS: 85610; 99211 ==

== ENCOUNTER 2024-10-28 08:13 | Outpatient (AMB) | payer BC, SELFPAY ==
[2024-10-28 08:24] LABS: Prothrombin Time Whole Bld POC 34.8 sec (11.1-13.5); ~PT, ~INR - Anti Coag Clinic 2.9 (0.9-1.1)
--- NOTE | 2024-10-28 08:46 | MHC.OFFVISCO ---
Intake Intake Visit Reasons: Anticoagulation Allergies enoxaparin Adverse Reaction (Mild, Verified 10/28/24 08:20) Headache Medication List - Last Reconciled 10/28/24 by Aye Johnson RN aspirin 81 mg PO BEDTIME loratadine (Allergy Relief (loratadine)) 10 mg PO DAILY multivitamin 1 tab PO DAILY phenytoin sodium extended 200 mg PO BID psyllium husk (aspartame) 3.4 gram/5.8 gram (Metamucil Sugar-Free (aspartame)) 3.4 ea PO DAILY rosuvastatin 40 mg PO DAILY warfarin 10 mg See Protocol PO DAILY 30 days Nursing Note INR: 2.9 in therapeutic range Medications and supplements reviewed 1) has tiny small firm ball lump in arch of his foot - no redness or swell or heat, sent msg to PCP ? for possible Ultra Sound 2) taking alleve for knee pain about 4 days this past week- he wasn't taking it with food - discussed risk of bleeding that if he must take it to to take it with food, and to discuss with MD. also to eat greens during the week while taking it. 3) took cold med with acetaminophen discussed that acetaminophen (tylenol) can raise the INR also, also to have an extra serving of greens during the week when taking it. 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
== END 2024-10-28 09:02 | disposition home or self-care (01) ==
LOC: HO.ACS 08:13
PROVIDERS: PCP Internal Medicine; Visit Provider Internal Medicine
DX: Z79.01 Long term (current) use of anticoagulants (principal)

== ENCOUNTER → 2024-10-28 08:13 | Outpatient (BNVA) | payer BC, SELFPAY | PROVIDERS: PCP Internal Medicine; Visit Provider Internal Medicine | DX: I82.411 Acute embolism and thrombosis of right femoral vein (principal); I26.99 Other pulmonary embolism without acute cor pulmonale; Z79.01 Long term (current) use of anticoagulants; Z51.81 Encounter for therapeutic drug level monitoring | CPT/HCPCS: 85610; 99211 ==

== ENCOUNTER 2024-10-30 09:26 | Outpatient (REF) | payer BC, SELFPAY ==
--- NOTE | ~2024-10-30 | US_ITS ---
EXAMINATION: US TRIPLEX LOWER EXTREMITY, RIGHT CLINICAL INFORMATION: History of DVT right leg. COMPARISON: 02/08/2024. TECHNIQUE: Color-flow triplex imaging with spectral analysis and compression Doppler were performed on the right lower extremity. 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 Otherwise, the visualized common femoral vein, superficial femoral vein, profunda femoral vein, popliteal vein and midcalf peroneal and posterior tibial venous segments show no evidence of deep venous thrombosis. There is no Goss's cyst. US/US venous duplex LE RT IMPRESSION: Appearance characteristic of chronic changes in the mid right femoral vein although no gross obstructing thrombus appreciated to indicate deep venous thrombosis. This study was presented today October 30, 2024 for interpretation. Stat results provided at this time as requested by referring provider. Electronically signed by: Aliosn Elliott MD 10/30/2024 11:35 AM VINOD
== END 2024-10-30 09:27 | disposition home or self-care (01) ==
LOC: HO.HMGCX 09:26
PROVIDERS: PCP Internal Medicine; Visit Provider Internal Medicine
DX: I82.411 Acute embolism and thrombosis of right femoral vein (principal)
CPT/HCPCS: 93971

== ENCOUNTER 2024-11-11 08:40 | Outpatient (AMB) | payer BC, SELFPAY ==
[2024-11-11 08:45] LABS: Prothrombin Time Whole Bld POC 36.8 sec (11.1-13.5); ~PT, ~INR - Anti Coag Clinic 3.1 (0.9-1.1)
--- NOTE | 2024-11-11 08:51 | MHC.OFFVISCO ---
Intake Intake Visit Reasons: Anticoagulation Allergies enoxaparin Adverse Reaction (Mild, Verified 11/11/24 08:41) Headache Medication List - Last Reconciled 11/11/24 by Aye Johnson RN aspirin 81 mg PO BEDTIME loratadine (Allergy Relief (loratadine)) 10 mg PO DAILY multivitamin 1 tab PO DAILY phenytoin sodium extended 200 mg PO BID psyllium husk (aspartame) 3.4 gram/5.8 gram (Metamucil Sugar-Free (aspartame)) 3.4 ea PO DAILY rosuvastatin 40 mg PO DAILY warfarin 10 mg See Protocol PO DAILY 30 days Nursing Note INR: 3.1 almost in therapeutic range Medications and supplements reviewed Left foot tiny lump size of small seed-still present, pt recently had ultrasound of the right leg that had the DVT but not the left foot no new clots found Length of anticoagulation therapy possibly for 1 year due to PE - MD to determine (02/2025 will be 1 year post DVT/PE) Denies any signs and symptoms of bleeding or bruising or clotting. 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 Illness/Depression: No Coding Level of Care Code Est Patient Level 1 Diagnoses Current use of anticoagulant therapy Z79.01 Assessment & Plan Assessment & Plan (1) Current use of anticoagulant therapy: Code(s): Z79.01 - assisted (current) use of 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
== END 2024-11-11 08:59 | disposition home or self-care (01) ==
LOC: HO.ACS 08:40
PROVIDERS: PCP Internal Medicine; Visit Provider Internal Medicine
DX: Z79.01 Long term (current) use of anticoagulants (principal)

== ENCOUNTER → 2024-11-11 08:40 | Outpatient (BNVA) | payer BC, SELFPAY | PROVIDERS: PCP Internal Medicine; Visit Provider Internal Medicine | DX: I82.411 Acute embolism and thrombosis of right femoral vein (principal); I26.99 Other pulmonary embolism without acute cor pulmonale; Z79.01 Long term (current) use of anticoagulants; Z51.81 Encounter for therapeutic drug level monitoring | CPT/HCPCS: 85610; 99211 ==

== ENCOUNTER 2024-11-25 08:26 | Outpatient (AMB) | payer BC, SELFPAY ==
--- NOTE | 2024-11-25 08:44 | MHC.OFFVISCO ---
Intake Intake Visit Reasons: Anticoagulation Allergies enoxaparin Adverse Reaction (Mild, Verified 11/25/24 08:34) Headache Medication List - Last Reconciled 11/25/24 by Mayela Connelly RN aspirin 81 mg PO BEDTIME loratadine (Allergy Relief (loratadine)) 10 mg PO DAILY multivitamin 1 tab PO DAILY phenytoin sodium extended 200 mg PO BID psyllium husk (aspartame) 3.4 gram/5.8 gram (Metamucil Sugar-Free (aspartame)) 3.4 ea PO DAILY rosuvastatin 40 mg PO DAILY warfarin 10 mg See Protocol PO DAILY 30 days Nursing Note INR: 3.2 in therapeutic range of 2.0-3.0 Medications and supplements reviewed No changes in health, diet, medications, or supplements, Denies any signs and symptoms of bleeding or bruising or clotting. 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 Illness/Depression: No Coding Level of Care Code Est Patient Level 1 Diagnoses Current use of anticoagulant therapy Z79.01 Results AMB INR Fingerstick AMB INR Fingerstick 3.2 Last Edit by Mayela Connelly RN on 11/25/24 08:41 interface delay Assessment & Plan Assessment & Plan (1) Current use of anticoagulant therapy: Code(s): Z79.01 - [facility] (current) use of 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
[2024-11-25 08:46] LABS: Prothrombin Time Whole Bld POC 38.1 sec (11.1-13.5); ~PT, ~INR - Anti Coag Clinic 3.2 (0.9-1.1)
== END 2024-11-25 08:46 | disposition home or self-care (01) ==
LOC: HO.ACS 08:26
PROVIDERS: PCP Internal Medicine; Visit Provider Internal Medicine
DX: Z79.01 Long term (current) use of anticoagulants (principal)

== ENCOUNTER → 2024-11-25 08:26 | Outpatient (BNVA) | payer BC, SELFPAY | PROVIDERS: PCP Internal Medicine; Visit Provider Internal Medicine | DX: I82.411 Acute embolism and thrombosis of right femoral vein (principal); I26.99 Other pulmonary embolism without acute cor pulmonale; Z79.01 Long term (current) use of anticoagulants; Z51.81 Encounter for therapeutic drug level monitoring | CPT/HCPCS: 85610; 99211 ==

== ENCOUNTER → 2024-12-09 08:30 | Outpatient (BNVA) | payer BC, SELFPAY | PROVIDERS: PCP Internal Medicine; Visit Provider Internal Medicine | DX: I82.411 Acute embolism and thrombosis of right femoral vein (principal); I26.99 Other pulmonary embolism without acute cor pulmonale; Z79.01 Long term (current) use of anticoagulants; Z51.81 Encounter for therapeutic drug level monitoring | CPT/HCPCS: 85610; 99211 ==

== ENCOUNTER 2024-12-25 08:20 | Outpatient (AMB) | payer BC, SELFPAY ==
[2024-12-25 08:29] LABS: Prothrombin Time Whole Bld POC 39.2 sec (11.1-13.5); ~PT, ~INR - Anti Coag Clinic 3.3 (0.9-1.1)
--- NOTE | 2024-12-25 08:37 | MHC.OFFVISCO ---
Intake Intake Visit Reasons: Anticoagulation Allergies enoxaparin Adverse Reaction (Mild, Verified 12/25/24 08:23) Headache Medication List - Last Reconciled 12/25/24 by Sayra Fitch RN aspirin 81 mg PO BEDTIME loratadine (Allergy Relief (loratadine)) 10 mg PO DAILY multivitamin 1 tab PO DAILY phenytoin sodium extended 200 mg PO BID psyllium husk (aspartame) 3.4 gram/5.8 gram (Metamucil Sugar-Free (aspartame)) 3.4 ea PO DAILY rosuvastatin 40 mg PO DAILY warfarin 10 mg See Protocol PO DAILY 30 days Nursing Note PT.HAS HAD FEWER GREENS. NO CP,SOB,MED CHANGES,FALLS OR SX OF BLEEDING. DECREASE DOSE SLIGHTLY TODAY THEN RESUME USUAL DOSE AND FOLLOW-UP JANET 2 WEEKS. GOOD UNDERSTANDING OF DOSING INSTR. 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
== END 2024-12-25 08:39 | disposition home or self-care (01) ==
LOC: HO.ACS 08:20
PROVIDERS: PCP Internal Medicine; Visit Provider Internal Medicine
DX: Z79.01 Long term (current) use of anticoagulants (principal)

== ENCOUNTER → 2024-12-25 08:20 | Outpatient (BNVA) | payer BC, SELFPAY | PROVIDERS: PCP Internal Medicine; Visit Provider Internal Medicine | DX: I82.411 Acute embolism and thrombosis of right femoral vein (principal); I26.99 Other pulmonary embolism without acute cor pulmonale; Z79.01 Long term (current) use of anticoagulants; Z51.81 Encounter for therapeutic drug level monitoring | CPT/HCPCS: 85610; 99211 ==

== ENCOUNTER 2025-01-08 08:20 | Outpatient (AMB) | payer BC, SELFPAY ==
[2025-01-08 08:27] LABS: Prothrombin Time Whole Bld POC 30.1 sec (11.1-13.5); ~PT, ~INR - Anti Coag Clinic 2.5 (0.9-1.1)
--- NOTE | 2025-01-08 08:34 | MHC.OFFVISCO ---
Intake Intake Visit Reasons: Anticoagulation Allergies enoxaparin Adverse Reaction (Mild, Verified 01/08/25 08:22) Headache Medication List - Last Reconciled 01/08/25 by Sayra Fitch RN aspirin 81 mg PO BEDTIME loratadine (Allergy Relief (loratadine)) 10 mg PO DAILY multivitamin 1 tab PO DAILY phenytoin sodium extended 200 mg PO BID psyllium husk (aspartame) 3.4 gram/5.8 gram (Metamucil Sugar-Free (aspartame)) 3.4 ea PO DAILY rosuvastatin 40 mg PO DAILY warfarin 10 mg See Protocol PO DAILY 30 days Nursing Note NO CP,SOB,DIET/MED CHANGES,FALLS OR SX OF BLEEDING. CONTINUE PRESENT DOSE AND FOLLOW-UP IN 3 WEEKS. GOOD UNDERSTANDING OF DOSING INSTR. 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 Illness/Depression: No Coding Level of Care Code Est Patient Level 1 Diagnoses Current use of anticoagulant therapy Z79.01 Assessment & Plan Assessment & Plan (1) Current use of anticoagulant therapy: Code(s): Z79.01 - detention (current) use of 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
== END 2025-01-08 08:35 | disposition home or self-care (01) ==
LOC: HO.ACS 08:20
PROVIDERS: PCP Internal Medicine; Visit Provider Internal Medicine
DX: Z79.01 Long term (current) use of anticoagulants (principal)

== ENCOUNTER → 2025-01-08 08:20 | Outpatient (BNVA) | payer BC, SELFPAY | PROVIDERS: PCP Internal Medicine; Visit Provider Internal Medicine | DX: I82.411 Acute embolism and thrombosis of right femoral vein (principal); I26.99 Other pulmonary embolism without acute cor pulmonale; Z79.01 Long term (current) use of anticoagulants; Z51.81 Encounter for therapeutic drug level monitoring | CPT/HCPCS: 85610; 99211 ==

== ENCOUNTER 2025-01-28 08:43 | Outpatient (AMB) | payer BC, SELFPAY ==
[2025-01-28 08:57] LABS: Prothrombin Time Whole Bld POC 38.8 sec (11.1-13.5); ~PT, ~INR - Anti Coag Clinic 3.2 (0.9-1.1)
--- NOTE | 2025-01-28 09:03 | MHC.OFFVISCO ---
Intake Intake Visit Reasons: Anticoagulation Allergies enoxaparin Adverse Reaction (Mild, Verified 01/28/25 08:52) Headache Medication List - Last Reconciled 01/28/25 by Aye Johnson RN aspirin 81 mg PO BEDTIME loratadine (Allergy Relief (loratadine)) 10 mg PO DAILY multivitamin 1 tab PO DAILY phenytoin sodium extended 200 mg PO BID psyllium husk (aspartame) 3.4 gram/5.8 gram (Metamucil Sugar-Free (aspartame)) 3.4 ea PO DAILY rosuvastatin 40 mg PO DAILY warfarin 10 mg See Protocol PO DAILY 30 days Nursing Note INR: 3.2 ALMNOST in therapeutic range 2.0-3.0 - he has not had usual greens almost on warfarin x 1 year and has f/u with Dr Pizarro today- enc to ask how much longer for tx and if he is able to go off, will he need anticoag panel drawn and or any f/u US or ST scan Medications and supplements reviewed No changes in health, diet, medications, or supplements, Denies any signs and symptoms of bleeding or bruising or clotting. 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
== END 2025-01-28 09:03 | disposition home or self-care (01) ==
LOC: HO.ACS 08:43
PROVIDERS: PCP Internal Medicine; Visit Provider Internal Medicine
DX: Z79.01 Long term (current) use of anticoagulants (principal)

== ENCOUNTER → 2025-01-28 08:43 | Outpatient (BNVA) | payer BC, SELFPAY | PROVIDERS: PCP Internal Medicine; Visit Provider Internal Medicine | DX: I26.99 Other pulmonary embolism without acute cor pulmonale (principal); Z86.718 Personal history of other venous thrombosis and embolism; Z79.01 Long term (current) use of anticoagulants; Z51.81 Encounter for therapeutic drug level monitoring | CPT/HCPCS: 85610; 99211 ==

== ENCOUNTER 2025-02-17 08:01 | Outpatient (AMB) | payer BC, SELFPAY ==
--- NOTE | 2025-02-17 08:13 | MHC.OFFVISCO ---
Intake Intake Visit Reasons: Anticoagulation Allergies enoxaparin Adverse Reaction (Mild, Verified 02/17/25 08:03) Headache Medication List - Last Reconciled 02/17/25 by Mayela Connelly RN aspirin 81 mg PO BEDTIME loratadine (Allergy Relief (loratadine)) 10 mg PO DAILY multivitamin 1 tab PO DAILY phenytoin sodium extended 200 mg PO BID psyllium husk (Metamucil Sugar-Free (aspartame)) 3.4 ea PO DAILY rosuvastatin 40 mg PO DAILY warfarin 10 mg See Protocol PO DAILY 30 days Nursing Note INR: 2.5 in therapeutic range of 2-3 Medications and supplements reviewed No changes in health, diet, medications, or supplements, Denies any signs and symptoms of bleeding or bruising or clotting. 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
[2025-02-17 08:18] LABS: Prothrombin Time Whole Bld POC 30.6 sec (11.1-13.5); ~PT, ~INR - Anti Coag Clinic 2.5 (0.9-1.1)
== END 2025-02-17 08:16 | disposition home or self-care (01) ==
LOC: HO.ACS 08:01
PROVIDERS: PCP Internal Medicine; Visit Provider Internal Medicine Medical Oncology
DX: Z79.01 Long term (current) use of anticoagulants (principal)

== ENCOUNTER → 2025-02-17 08:01 | Outpatient (BNVA) | payer BC, SELFPAY | PROVIDERS: PCP Internal Medicine; Visit Provider Internal Medicine Medical Oncology | DX: I26.99 Other pulmonary embolism without acute cor pulmonale (principal); Z86.718 Personal history of other venous thrombosis and embolism; Z79.01 Long term (current) use of anticoagulants; Z51.81 Encounter for therapeutic drug level monitoring | CPT/HCPCS: 85610; 99211 ==

== ENCOUNTER 2025-03-10 08:15 | Outpatient (AMB) | payer BC, SELFPAY ==
[2025-03-10 08:23] LABS: Prothrombin Time Whole Bld POC 32.1 sec (11.1-13.5); ~PT, ~INR - Anti Coag Clinic 2.7 (0.9-1.1)
--- NOTE | 2025-03-10 08:31 | MHC.OFFVISCO ---
Intake Intake Visit Reasons: Anticoagulation Allergies enoxaparin Adverse Reaction (Mild, Verified 03/10/25 08:17) Headache Medication List - Last Reconciled 03/10/25 by Mayela Connelly RN aspirin 81 mg PO BEDTIME loratadine (Allergy Relief (loratadine)) 10 mg PO DAILY multivitamin 1 tab PO DAILY phenytoin sodium extended 200 mg PO BID psyllium husk (Metamucil Sugar-Free (aspartame)) 3.4 ea PO DAILY rosuvastatin 40 mg PO DAILY warfarin 10 mg See Protocol PO DAILY 30 days Nursing Note INR: 2.7 in therapeutic range of 2-3 Medications and supplements reviewed No changes in health, diet, medications, or supplements, Denies any signs and symptoms of bleeding or bruising or clotting. 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
== END 2025-03-10 08:32 | disposition home or self-care (01) ==
LOC: HO.ACS 08:15
PROVIDERS: PCP Internal Medicine; Visit Provider Internal Medicine Medical Oncology
DX: Z79.01 Long term (current) use of anticoagulants (principal)

== ENCOUNTER → 2025-03-10 08:15 | Outpatient (BNVA) | payer BC, SELFPAY | PROVIDERS: PCP Internal Medicine; Visit Provider Internal Medicine Medical Oncology | DX: I26.99 Other pulmonary embolism without acute cor pulmonale (principal); Z86.718 Personal history of other venous thrombosis and embolism; Z51.81 Encounter for therapeutic drug level monitoring; Z79.01 Long term (current) use of anticoagulants | CPT/HCPCS: 85610; 99211 ==

== ENCOUNTER 2025-03-18 13:54 | Outpatient (AMB) | payer BC, SELFPAY ==
[2025-03-18 13:56] VITALS: BP 120/76; PULSE 83; BMI 27.5
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
== END 2025-03-18 14:40 | disposition home or self-care (01) ==
LOC: HO.HCS 13:55
PROVIDERS: PCP Internal Medicine; Visit Provider Internal Medicine Cardiovascular Disease
DX: E78.5 Hyperlipidemia, unspecified (principal); Z79.01 Long term (current) use of anticoagulants; E78.00 Pure hypercholesterolemia, unspecified; I26.99 Other pulmonary embolism without acute cor pulmonale
CPT/HCPCS: 93010; 99214

== ENCOUNTER → 2025-03-18 13:54 | Outpatient (BNVA) | payer BC, SELFPAY | PROVIDERS: PCP Internal Medicine; Visit Provider Internal Medicine Cardiovascular Disease | DX: E78.00 Pure hypercholesterolemia, unspecified (principal); I26.99 Other pulmonary embolism without acute cor pulmonale | CPT/HCPCS: 93005 ==

== ENCOUNTER 2025-03-31 07:57 | Outpatient (AMB) | payer BC, SELFPAY ==
[2025-03-31 08:07] LABS: Prothrombin Time Whole Bld POC 38.5 sec (11.1-13.5); ~PT, ~INR - Anti Coag Clinic 3.2 (0.9-1.1)
--- NOTE | 2025-03-31 08:12 | MHC.OFFVISCO ---
Intake Intake Visit Reasons: Anticoagulation Allergies enoxaparin Adverse Reaction (Mild, Verified 03/31/25 07:58) Headache Medication List - Last Reconciled 03/31/25 by Mayela Connelly RN aspirin 81 mg PO BEDTIME multivitamin 1 tab PO DAILY phenytoin sodium extended 200 mg PO BID psyllium husk (Metamucil Sugar-Free (aspartame)) 3.4 ea PO DAILY rosuvastatin 40 mg PO DAILY warfarin 10 mg See Protocol PO DAILY 30 days Nursing Note INR: 3.2 in therapeutic range of 2-3 Medications and supplements reviewed No changes in health, diet, medications, or supplements, Denies any signs and symptoms of bleeding or bruising or clotting. Bleeding, bruising, clotting discussed Nutritional guidance given to have a serving of greens today Dose: 10mg X 4 days and 12.5mg X 3 days (M/W/) F/U INR: 3 weeks Patient verbalizes understanding of instructions given Anti-Coag Initial Assessment Social Hx Patient Tobacco Use Status: Never used Tobacco alcohol intake: never Alcohol intake frequency: does not drink Cardiovascular Hx: HTN 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 Illness/Depression: No Coding Level of Care Code Est Patient Level 1 Diagnoses Current use of anticoagulant therapy Z79.01 Results AMB INR Fingerstick AMB INR Fingerstick 3.2 Last Edit by Mayela Connelly RN on 03/31/25 08:07 interface delay Assessment & Plan Assessment & Plan (1) Current use of anticoagulant therapy: Code(s): Z79.01 - [facility] (current) use of 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
== END 2025-03-31 08:20 | disposition home or self-care (01) ==
LOC: HO.ACS 07:57
PROVIDERS: PCP Internal Medicine; Visit Provider Internal Medicine Medical Oncology
DX: Z79.01 Long term (current) use of anticoagulants (principal)

== ENCOUNTER → 2025-03-31 07:57 | Outpatient (BNVA) | payer BC, SELFPAY | PROVIDERS: PCP Internal Medicine; Visit Provider Internal Medicine Medical Oncology | DX: I26.99 Other pulmonary embolism without acute cor pulmonale (principal); Z86.718 Personal history of other venous thrombosis and embolism; Z51.81 Encounter for therapeutic drug level monitoring; Z79.01 Long term (current) use of anticoagulants | CPT/HCPCS: 85610; 99211 ==

== ENCOUNTER 2025-04-17 08:28 | Outpatient (AMB) | payer BC, SELFPAY ==
[2025-04-17 08:44] LABS: Prothrombin Time Whole Bld POC 21.1 sec (11.1-13.5); ~PT, ~INR - Anti Coag Clinic 1.8 (0.9-1.1)
--- NOTE | 2025-04-17 08:50 | MHC.OFFVISCO ---
Intake Intake Visit Reasons: Anticoagulation Allergies enoxaparin Adverse Reaction (Mild, Verified 03/31/25 07:58) Headache Nursing Note INR: 1.8, OUT OF therapeutic range- pt ate greenbeans and peas yesterday- he was enc to avoid all greens x 3 days so INR can move above 2.0 Medications and supplements reviewed had skin cancer removed on back 04/13/2025 - healing well sutures clean dry and intact no drainage, sutures to removed Monday04/21/2025 Denies any signs and symptoms of bleeding or bruising or clotting. Bleeding, bruising, clotting discussed Nutritional guidance given Dose: booster dose today to 12.5mg then resume 12.5mg mwf/ 10mg x 4 days F/U INR: 1week Patient verbalizes understanding of instructions given Anti-Coag Initial Assessment Social Hx Patient Tobacco Use Status: Never used Tobacco alcohol intake: never Alcohol intake frequency: does not drink Cardiovascular Hx: HTN 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
== END 2025-04-17 09:06 | disposition home or self-care (01) ==
LOC: HO.ACS 08:28
PROVIDERS: PCP Internal Medicine; Visit Provider Internal Medicine Medical Oncology
DX: Z79.01 Long term (current) use of anticoagulants (principal)

== ENCOUNTER → 2025-04-17 08:28 | Outpatient (BNVA) | payer BC, SELFPAY | PROVIDERS: PCP Internal Medicine; Visit Provider Internal Medicine Medical Oncology | DX: Z79.01 Long term (current) use of anticoagulants (principal) | CPT/HCPCS: 85610; 99211 ==

== ENCOUNTER 2025-04-21 09:28 | Outpatient (AMB) | payer BC, SELFPAY ==
--- NOTE | 2025-04-21 09:43 | MHC.OFFVISCO ---
Intake Intake Visit Reasons: Anticoagulation Allergies enoxaparin Adverse Reaction (Mild, Verified 04/21/25 09:30) Headache Medication List - Last Reconciled 04/21/25 by Aye Johnson RN aspirin 81 mg PO BEDTIME multivitamin 1 tab PO DAILY phenytoin sodium extended 200 mg PO BID psyllium husk (Metamucil Sugar-Free (aspartame)) 3.4 ea PO DAILY rosuvastatin 40 mg PO DAILY warfarin 10 mg See Protocol PO DAILY 30 days Nursing Note INR: 3.0 in therapeutic range Medications and supplements reviewed No changes in diet, medications, or supplements, Pt to have Moh's procedure May 29 2025 Denies any signs and symptoms of bleeding or bruising or clotting. Bleeding, bruising, clotting discussed Nutritional guidance given Dose: 12.5mg x 3 days/ 10mg x 4 days F/U INR: 2 weeks Patient verbalizes understanding of instructions given Anti-Coag Initial Assessment Social Hx Patient Tobacco Use Status: Never used Tobacco alcohol intake: never Alcohol intake frequency: does not drink Cardiovascular Hx: HTN Lung Disease HX: DVT/PE Endocrine Hx: Thyroid Disease Musculoskeletal Hx: Other Blood Disorder Hx: Hyperlipidemia GI Hx: Other Neurological Hx: Epilepsy/Seizures and Migraines/Headaches Cancer HX: Yes (basal cell on face) Psych. Illness/Depression: No Questionnaires HAS-BLED Does the patient had uncontrolled Hypertension?: No Does the patient have renal disease?: No Does the patient have liver disease?: No Does the patient have a history of stroke?: No Has the patient had major bleeding or predisposition to bleeding?: Yes (on warfarin - recent use of lovenox and skin ca removal and to have Mho's procedure 05/29/25) Does the patient have labile INRs?: Yes Is the patient over 65 years of age?: No Is the patient on medications that gives them a predisposition to bleeding?: Yes Does the patient use alcohol?: No HAS-BLED Score: 3 CHADSVASC Age: <65 Gender: Male Does the patient have a history of CHF?: No Does the patient have a history of Hypertension?: No Does the patient have a history of Stroke/TIA/Thromboembolism?: Yes (dvt / pe ? reason s/p covid 10/05 and injury to groin area 2 days prior clots ) Does the patient have a history of Vascular Disease (prior [place], PAD or aortic plaque)?: Yes (treated for high cholesterol) Does the patient have a history of Diabetes?: No CHADS VACS Score: 3 Jake Prediction Score Rsk VTE Active Cancer: Yes (had recent skin cancer removal and to have Mohs Procedure 05/29/25) Previous VTE, excluding superficial vein thrombosis: No Reduced mobility: No Already known Thrombophilic Condition: Yes (Very large DVT and PE - undetermined cause- possible Thrombophilic process to be ruled out ) With-in last month Trauma and/or Surgery: Yes Elderly 70 year or older: No Heart and/or Respiratory Failure: No Acute Myocardial infarction and/or Ischemic Stroke: No Acute Infection and/or Rheumatologic Disorder: No Obesity (BMI 30 or greater): No Ongoing Hormonal Treatment: No Score: 8 Jake Score less than 4; Low Risk of VTE Jake Score 4 or greater; High Risk of VTE Coding Level of Care Code Est Patient Level 1 Diagnoses Current use of anticoagulant therapy Z79.01 Results AMB INR Fingerstick AMB INR Fingerstick 3.0 Last Edit by Aye Johnson RN on 04/21/25 09:40 manual entry Assessment & Plan Assessment & Plan (1) Current use of anticoagulant therapy: 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
[2025-04-21 09:56] LABS: Prothrombin Time Whole Bld POC 35.9 sec (11.1-13.5)
== END 2025-04-21 09:52 | disposition home or self-care (01) ==
LOC: HO.ACS 09:28
PROVIDERS: PCP Internal Medicine; Visit Provider Internal Medicine Medical Oncology
DX: Z79.01 Long term (current) use of anticoagulants (principal)

== ENCOUNTER → 2025-04-21 09:28 | Outpatient (BNVA) | payer BC, SELFPAY | PROVIDERS: PCP Internal Medicine; Visit Provider Internal Medicine Medical Oncology | DX: I26.99 Other pulmonary embolism without acute cor pulmonale (principal); I82.401 Acute embolism and thrombosis of unspecified deep veins of right lower extremity; Z51.81 Encounter for therapeutic drug level monitoring; Z79.01 Long term (current) use of anticoagulants | CPT/HCPCS: 85610; 99211 ==

== ENCOUNTER → 2025-05-05 08:14 | Outpatient (BNVA) | payer BC, SELFPAY | PROVIDERS: PCP Internal Medicine; Visit Provider Internal Medicine Medical Oncology | DX: I26.99 Other pulmonary embolism without acute cor pulmonale (principal); I82.501 Chronic embolism and thrombosis of unspecified deep veins of right lower extremity; Z79.01 Long term (current) use of anticoagulants; Z51.81 Encounter for therapeutic drug level monitoring | CPT/HCPCS: 85610; 99211 ==

== ENCOUNTER 2025-05-26 08:01 | Outpatient (AMB) | payer BC, SELFPAY ==
[2025-05-26 08:18] LABS: Prothrombin Time Whole Bld POC 43.3 sec (11.1-13.5); ~PT, ~INR - Anti Coag Clinic 3.6 (0.9-1.1)
--- NOTE | 2025-05-26 08:30 | MHC.OFFVISCO ---
Intake Intake Visit Reasons: Anticoagulation Allergies enoxaparin Adverse Reaction (Mild, Verified 05/26/25 08:12) Headache Medication List - Last Reconciled 05/26/25 by Aye Johnson RN aspirin 81 mg PO BEDTIME multivitamin 1 tab PO DAILY phenytoin sodium extended 200 mg PO BID psyllium husk (Metamucil Sugar-Free (aspartame)) 3.4 ea PO DAILY rosuvastatin 40 mg PO DAILY warfarin See Protocol 2-3 tabs daily orally daily; 10mg X 4 days and 12.5mg X3 days 30 days Nursing Note INR 3.6 out of therapeutic range Medications and supplements reviewed Patient status: MOHS PROCEDURE 05/29/25, ATE MORE REDS THAN GREENS AND MORE CAFFEINE Medications or supplements: NO CHANGE Diet: SUMMER DIET Denies any signs and symptoms of bleeding or clotting or unusual bruising Bleeding, bruising, clotting discussed Nutritional guidance given: BROCCOLUI TODAY Dose: DECREASE TO 5MG TODAY THEN WILL BE HOLDING DAY PRIOR DAY OF AND DAY AFTER MOHS PROCEDURE F/U INR Date : 1 WEEK ?? Patient verbalizing understanding of instructions given. Anti-Coag Initial Assessment Social Hx Patient Tobacco Use Status: Never used Tobacco alcohol intake: never Alcohol intake frequency: does not drink Cardiovascular Hx: HTN Lung Disease HX: DVT/PE Endocrine Hx: Thyroid Disease Musculoskeletal Hx: Other Blood Disorder Hx: Hyperlipidemia GI Hx: Other Neurological Hx: Epilepsy/Seizures and Migraines/Headaches Cancer HX: Yes (basal cell on face) Psych. Illness/Depression: No Coding Level of Care Code Est Patient Level 1 Diagnoses Current use of anticoagulant therapy Z79.01 Results AMB INR Fingerstick AMB INR Fingerstick 3.6 Last Edit by Aye Johnson RN on 05/26/25 08:20 Assessment & Plan Assessment & Plan (1) Current use of anticoagulant therapy: Code(s): Z79.01 - [facility] (current) use of 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
== END 2025-05-26 08:51 | disposition home or self-care (01) ==
LOC: HO.ACS 08:01
PROVIDERS: PCP Internal Medicine; Visit Provider Internal Medicine Medical Oncology
DX: Z79.01 Long term (current) use of anticoagulants (principal)

== ENCOUNTER → 2025-05-26 08:01 | Outpatient (BNVA) | payer BC, SELFPAY | PROVIDERS: PCP Internal Medicine; Visit Provider Internal Medicine Medical Oncology | DX: I26.99 Other pulmonary embolism without acute cor pulmonale (principal); Z86.718 Personal history of other venous thrombosis and embolism; Z79.01 Long term (current) use of anticoagulants; Z51.81 Encounter for therapeutic drug level monitoring | CPT/HCPCS: 85610; 99211 ==

== ENCOUNTER 2025-06-03 08:09 | Outpatient (AMB) | payer BC, SELFPAY ==
[2025-06-03 08:25] LABS: Prothrombin Time Whole Bld POC 16.6 sec (11.1-13.5); ~PT, ~INR - Anti Coag Clinic 1.4 (0.9-1.1)
--- NOTE | 2025-06-03 08:36 | MHC.OFFVISCO ---
Intake Intake Visit Reasons: Anticoagulation Allergies enoxaparin Adverse Reaction (Mild, Verified 06/03/25 08:18) Headache Medication List - Last Reconciled 06/03/25 by Mayela Connelly RN aspirin 81 mg PO BEDTIME multivitamin 1 tab PO DAILY phenytoin sodium extended 200 mg PO BID psyllium husk (Metamucil Sugar-Free (aspartame)) 3.4 ea PO DAILY rosuvastatin 40 mg PO DAILY warfarin See Protocol 2-3 tabs daily orally daily; 10mg X 4 days and 12.5mg X3 days 30 days Nursing Note INR: 1.4 out of therapeutic range of 2-3 S/P MOHS procedure on side of face 1 week ago with 3 day hold Medications and supplements reviewed No changes in health, diet, medications, or supplements, Denies any signs and symptoms of bleeding or bruising or clotting. Bleeding, bruising, clotting discussed Nutritional guidance given to avoid greens today Dose: increase today's dose to 12.5mg (10mg) then 12.5mg tomorrow and 10mg the next day then recheck F/U INR: 06/06/25 Patient verbalizes understanding of instructions with read back given Dr Gross notified of critical INR by composed note. Anti-Coag Initial Assessment Social Hx Patient Tobacco Use Status: Never used Tobacco alcohol intake: never Alcohol intake frequency: does not drink Cardiovascular Hx: HTN Lung Disease HX: DVT/PE Endocrine Hx: Thyroid Disease Musculoskeletal Hx: Other Blood Disorder Hx: Hyperlipidemia GI Hx: Other Neurological Hx: Epilepsy/Seizures and Migraines/Headaches Cancer HX: Yes (basal cell on face) Psych. Illness/Depression: No Coding Level of Care Code Est Patient Level 2 Diagnoses Current use of anticoagulant therapy Z79.01 Time Spent (min) 30 Comment critical INR, assessment done, instructions explained to pt Assessment & Plan Assessment & Plan (1) Current use of anticoagulant therapy: Code(s): Z79.01 - [facility] (current) use of 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
== END 2025-06-03 08:47 | disposition home or self-care (01) ==
LOC: HO.ACS 08:09
PROVIDERS: PCP Internal Medicine; Visit Provider Internal Medicine Medical Oncology
DX: Z79.01 Long term (current) use of anticoagulants (principal)

== ENCOUNTER → 2025-06-03 08:09 | Outpatient (BNVA) | payer BC, SELFPAY | PROVIDERS: PCP Internal Medicine; Visit Provider Internal Medicine Medical Oncology | DX: I26.99 Other pulmonary embolism without acute cor pulmonale (principal); Z86.718 Personal history of other venous thrombosis and embolism; Z79.01 Long term (current) use of anticoagulants; Z51.81 Encounter for therapeutic drug level monitoring | CPT/HCPCS: 85610; 99212 ==

== ENCOUNTER 2025-06-06 08:35 | Outpatient (AMB) | payer BC, SELFPAY ==
[2025-06-06 08:50] LABS: Prothrombin Time Whole Bld POC 27.8 sec (11.1-13.5); ~PT, ~INR - Anti Coag Clinic 2.3 (0.9-1.1)
--- NOTE | 2025-06-06 08:54 | MHC.OFFVISCO ---
Intake Intake Visit Reasons: Anticoagulation Allergies enoxaparin Adverse Reaction (Mild, Verified 06/06/25 08:44) Headache Medication List - Last Reconciled 06/06/25 by Mayela Connelly RN aspirin 81 mg PO BEDTIME multivitamin 1 tab PO DAILY phenytoin sodium extended 200 mg PO BID psyllium husk (Metamucil Sugar-Free (aspartame)) 3.4 ea PO DAILY rosuvastatin 40 mg PO DAILY warfarin See Protocol 2-3 tabs daily orally daily; 10mg X 4 days and 12.5mg X3 days 30 days Nursing Note INR: 2.3 in therapeutic range of 2-3 Medications and supplements reviewed No changes in health, diet, medications, or supplements, Denies any signs and symptoms of bleeding or bruising or clotting. Bleeding, bruising, clotting discussed Nutritional guidance given Dose: resume usual dose of 10mg X 4 days and 12.5mg X 3 days (M/W/F) F/U INR: 2 weeks Patient verbalizes understanding of instructions given Anti-Coag Initial Assessment Social Hx Patient Tobacco Use Status: Never used Tobacco alcohol intake: never Alcohol intake frequency: does not drink Cardiovascular Hx: HTN Lung Disease HX: DVT/PE Endocrine Hx: Thyroid Disease Musculoskeletal Hx: Other Blood Disorder Hx: Hyperlipidemia GI Hx: Other Neurological Hx: Epilepsy/Seizures and Migraines/Headaches Cancer HX: Yes (basal cell on face) Psych. Illness/Depression: No Coding Level of Care Code Est Patient Level 1 Diagnoses Current use of anticoagulant therapy Z79.01 Results AMB INR Fingerstick AMB INR Fingerstick 2.3 Last Edit by Mayela Connelly RN on 06/06/25 08:50 interface delay Assessment & Plan Assessment & Plan (1) Current use of anticoagulant therapy: Code(s): Z79.01 - senior living (current) use of 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
== END 2025-06-06 08:57 | disposition home or self-care (01) ==
LOC: HO.ACS 08:35
PROVIDERS: PCP Internal Medicine; Visit Provider Internal Medicine Medical Oncology
DX: Z79.01 Long term (current) use of anticoagulants (principal)

== ENCOUNTER → 2025-06-06 08:35 | Outpatient (BNVA) | payer BC, SELFPAY | PROVIDERS: PCP Internal Medicine; Visit Provider Internal Medicine Medical Oncology | DX: I26.99 Other pulmonary embolism without acute cor pulmonale (principal); Z86.718 Personal history of other venous thrombosis and embolism; Z79.01 Long term (current) use of anticoagulants; Z51.81 Encounter for therapeutic drug level monitoring | CPT/HCPCS: 85610; 99211 ==

== ENCOUNTER 2025-06-23 07:59 | Outpatient (AMB) | payer BC, SELFPAY ==
[2025-06-23 08:06] LABS: Prothrombin Time Whole Bld POC 42.8 sec (11.1-13.5); ~PT, ~INR - Anti Coag Clinic 3.6 (0.9-1.1)
--- NOTE | 2025-06-23 08:09 | MHC.OFFVISCO ---
Intake Intake Visit Reasons: Anticoagulation Allergies enoxaparin Adverse Reaction (Mild, Verified 06/23/25 08:00) Headache Medication List - Last Reconciled 06/23/25 by Mayela Connelly RN aspirin 81 mg PO BEDTIME multivitamin 1 tab PO DAILY phenytoin sodium extended 200 mg PO BID psyllium husk (Metamucil Sugar-Free (aspartame)) 3.4 ea PO DAILY rosuvastatin 40 mg PO DAILY warfarin See Protocol 2-3 tabs daily orally daily; 10mg X 4 days and 12.5mg X3 days 30 days Nursing Note INR: 3.6?out of therapeutic range of 2-3 Medications and supplements reviewed Patient status: feels well, no changes per pt Medications or supplements: no changes Diet: usual diet, possibly more summer fruits such as cherries Denies any signs and symptoms of bleeding or clotting or unusual bruising Bleeding, bruising, clotting discussed Nutritional guidance given: to have a serving of greens today Dose: decrease today's dose to 10mg (12.5mg) then 10mg X 4 days and 12.5mg X 3 days (M/W/F) F/U INR Date: 2 weeks?? Patient verbalizing understanding of instructions given. Anti-Coag Initial Assessment Social Hx Patient Tobacco Use Status: Never used Tobacco alcohol intake: never Alcohol intake frequency: does not drink Cardiovascular Hx: HTN Lung Disease HX: DVT/PE Endocrine Hx: Thyroid Disease Musculoskeletal Hx: Other Blood Disorder Hx: Hyperlipidemia GI Hx: Other Neurological Hx: Epilepsy/Seizures and Migraines/Headaches Cancer HX: Yes (basal cell on face) Psych. 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
== END 2025-06-23 08:13 | disposition home or self-care (01) ==
LOC: HO.ACS 07:59
PROVIDERS: PCP Internal Medicine; Visit Provider Internal Medicine Medical Oncology
DX: Z79.01 Long term (current) use of anticoagulants (principal)

== ENCOUNTER → 2025-06-23 07:59 | Outpatient (BNVA) | payer BC, SELFPAY | PROVIDERS: PCP Internal Medicine; Visit Provider Internal Medicine Medical Oncology | DX: Z79.01 Long term (current) use of anticoagulants (principal) | CPT/HCPCS: 85610; 99211 ==

== ENCOUNTER 2025-07-07 08:13 | Outpatient (AMB) | payer BC, SELFPAY ==
[2025-07-07 08:19] LABS: Prothrombin Time Whole Bld POC 37.3 sec (11.1-13.5); ~PT, ~INR - Anti Coag Clinic 3.1 (0.9-1.1)
--- NOTE | 2025-07-07 08:23 | MHC.OFFVISCO ---
Intake Intake Visit Reasons: Anticoagulation Allergies enoxaparin Adverse Reaction (Mild, Verified 07/07/25 08:14) Headache Medication List - Last Reconciled 07/07/25 by Maylea Connelly RN aspirin 81 mg PO BEDTIME multivitamin 1 tab PO DAILY phenytoin sodium extended 200 mg PO BID psyllium husk (Metamucil Sugar-Free (aspartame)) 3.4 ea PO DAILY rosuvastatin 40 mg PO DAILY warfarin See Protocol 2-3 tabs daily orally daily; 10mg X 4 days and 12.5mg X3 days 30 days Nursing Note INR: 3.1 out of therapeutic range of 2-3 Medications and supplements reviewed No changes in health, diet, medications, or supplements, Denies any signs and symptoms of bleeding or bruising or clotting. Bleeding, bruising, clotting discussed to have a serving of greens today Dose: 10mg X 4 days and 12.5mg X 3 days (M/W/F) F/U INR: 3 weeks Patient verbalizes understanding of instructions given Anti-Coag Initial Assessment Social Hx Patient Tobacco Use Status: Never used Tobacco alcohol intake: never Alcohol intake frequency: does not drink Cardiovascular Hx: HTN Lung Disease HX: DVT/PE Endocrine Hx: Thyroid Disease Musculoskeletal Hx: Other Blood Disorder Hx: Hyperlipidemia GI Hx: Other Neurological Hx: Epilepsy/Seizures and Migraines/Headaches Cancer HX: Yes (basal cell on face) Psych. 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
== END 2025-07-07 08:25 | disposition home or self-care (01) ==
LOC: HO.ACS 08:13
PROVIDERS: PCP Internal Medicine; Visit Provider Internal Medicine Medical Oncology
DX: Z79.01 Long term (current) use of anticoagulants (principal)

== ENCOUNTER → 2025-07-07 08:13 | Outpatient (BNVA) | payer BC, SELFPAY | PROVIDERS: PCP Internal Medicine; Visit Provider Internal Medicine Medical Oncology | DX: I26.99 Other pulmonary embolism without acute cor pulmonale (principal); Z86.718 Personal history of other venous thrombosis and embolism; Z79.01 Long term (current) use of anticoagulants; Z51.81 Encounter for therapeutic drug level monitoring | CPT/HCPCS: 85610; 99211 ==

== ENCOUNTER 2025-07-28 08:16 | Outpatient (AMB) | payer BC, SELFPAY ==
[2025-07-28 08:23] LABS: Prothrombin Time Whole Bld POC 52.2 sec (11.1-13.5); ~PT, ~INR - Anti Coag Clinic 4.4 (0.9-1.1)
--- NOTE | 2025-07-28 08:31 | MHC.OFFVISCO ---
Intake Intake Visit Reasons: Anticoagulation Allergies enoxaparin Adverse Reaction (Mild, Verified 07/28/25 08:17) Headache Medication List - Last Reconciled 07/28/25 by Mayela Connelly RN aspirin 81 mg PO BEDTIME multivitamin 1 tab PO DAILY phenytoin sodium extended 200 mg PO BID psyllium husk (Metamucil Sugar-Free (aspartame)) 3.4 ea PO DAILY rosuvastatin 40 mg PO DAILY warfarin See Protocol 2-3 tabs daily orally daily; 10mg X 4 days and 12.5mg X3 days 30 days Nursing Note INR: 4.4 out of therapeutic range of 2-3 Pt has a cold and has taken cold medicine with Tylenol X 3 days Also states he has been having a lot of grapes recently which can raise the INR Medications and supplements reviewed Patient status: feeling better but still with a cough Medications or supplements: no other changes Diet: as above otherwise usual diet for pt Denies any signs and symptoms of bleeding or clotting or unusual bruising Bleeding, bruising, clotting discussed Nutritional guidance given: to have a serving of greens today. Pt states he will have broccoli. Dose: decrease today's dose to 7.5mg (12.5mg) then 10mg X 4 days and 12.5mg X 3 days (Mon/Wed/Fri) F/U INR Date: 1 week?? Patient verbalizing understanding of instructions with read back given. Anti-Coag Initial Assessment Social Hx Patient Tobacco Use Status: Never used Tobacco alcohol intake: never Alcohol intake frequency: does not drink Cardiovascular Hx: HTN Lung Disease HX: DVT/PE Endocrine Hx: Thyroid Disease Musculoskeletal Hx: Other Blood Disorder Hx: Hyperlipidemia GI Hx: Other Neurological Hx: Epilepsy/Seizures and Migraines/Headaches Cancer HX: Yes (basal cell on face) Psych. 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
== END 2025-07-28 08:41 | disposition home or self-care (01) ==
LOC: HO.ACS 08:16
PROVIDERS: PCP Internal Medicine; Visit Provider Internal Medicine Medical Oncology
DX: Z79.01 Long term (current) use of anticoagulants (principal)

== ENCOUNTER → 2025-07-28 08:16 | Outpatient (BNVA) | payer BC, SELFPAY | PROVIDERS: PCP Internal Medicine; Visit Provider Internal Medicine Medical Oncology | DX: I26.99 Other pulmonary embolism without acute cor pulmonale (principal); Z86.718 Personal history of other venous thrombosis and embolism; Z79.01 Long term (current) use of anticoagulants; Z51.81 Encounter for therapeutic drug level monitoring | CPT/HCPCS: 85610; 99211 ==

== ENCOUNTER 2025-08-04 08:27 | Outpatient (AMB) | payer BC, SELFPAY ==
[2025-08-04 08:39] LABS: Prothrombin Time Whole Bld POC 45.4 sec (11.1-13.5); ~PT, ~INR - Anti Coag Clinic 3.8 (0.9-1.1)
--- NOTE | 2025-08-04 08:46 | MHC.OFFVISCO ---
Intake Intake Visit Reasons: Anticoagulation Allergies enoxaparin Adverse Reaction (Mild, Verified 08/04/25 08:34) Headache Medication List - Last Reconciled 08/04/25 by Mayela Connelly RN aspirin 81 mg PO BEDTIME loratadine (Claritin) 10 mg PO DAILY multivitamin 1 tab PO DAILY phenytoin sodium extended 200 mg PO BID psyllium husk (Metamucil Sugar-Free (aspartame)) 3.4 ea PO DAILY rosuvastatin 40 mg PO DAILY warfarin See Protocol 2-3 tabs daily orally daily; 10mg X 4 days and 12.5mg X3 days 30 days Nursing Note INR 3.8 out of therapeutic range of 2-3 Medications and supplements reviewed Patient status: feels well Medications or supplements: no change Diet: has been having a lot of grapes lately Denies any signs and symptoms of bleeding or clotting or unusual bruising Bleeding, bruising, clotting discussed Nutritional guidance given: to have a serving of greens today Dose: decrease today's dose to 7.5mg (12.5mg) then 10mg X 4 days and 12.5mg X 3 days (M/W/F) F/U INR Date: 1 week?? Patient verbalizing understanding of instructions given. Anti-Coag Initial Assessment Social Hx Patient Tobacco Use Status: Never used Tobacco alcohol intake: never Alcohol intake frequency: does not drink Cardiovascular Hx: HTN Lung Disease HX: DVT/PE Endocrine Hx: Thyroid Disease Musculoskeletal Hx: Other Blood Disorder Hx: Hyperlipidemia GI Hx: Other Neurological Hx: Epilepsy/Seizures and Migraines/Headaches Cancer HX: Yes (basal cell on face) Psych. Illness/Depression: No Coding Level of Care Code Est Patient Level 1 Diagnoses Current use of anticoagulant therapy Z79.01 Assessment & Plan Assessment & Plan (1) Current use of anticoagulant therapy: Code(s): Z79.01 - [facility] (current) use of 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
== END 2025-08-04 08:50 | disposition home or self-care (01) ==
LOC: HO.ACS 08:27
PROVIDERS: PCP Internal Medicine; Visit Provider Internal Medicine Medical Oncology
DX: Z79.01 Long term (current) use of anticoagulants (principal)

== ENCOUNTER → 2025-08-04 08:27 | Outpatient (BNVA) | payer BC, SELFPAY | PROVIDERS: PCP Internal Medicine; Visit Provider Internal Medicine Medical Oncology | DX: I26.99 Other pulmonary embolism without acute cor pulmonale (principal); Z86.718 Personal history of other venous thrombosis and embolism; Z79.01 Long term (current) use of anticoagulants; Z51.81 Encounter for therapeutic drug level monitoring | CPT/HCPCS: 85610; 99211 ==

== ENCOUNTER 2025-08-11 08:25 | Outpatient (AMB) | payer BC, SELFPAY ==
[2025-08-11 08:42] LABS: Prothrombin Time Whole Bld POC 38.9 sec (11.1-13.5); ~PT, ~INR - Anti Coag Clinic 3.2 (0.9-1.1)
--- NOTE | 2025-08-11 08:52 | MHC.OFFVISCO ---
Intake Intake Visit Reasons: Anticoagulation Allergies enoxaparin Adverse Reaction (Mild, Verified 08/11/25 08:36) Headache Medication List - Last Reconciled 08/11/25 by Mayela Connelly RN aspirin 81 mg PO BEDTIME loratadine (Claritin) 10 mg PO DAILY multivitamin 1 tab PO DAILY phenytoin sodium extended 200 mg PO BID psyllium husk (Metamucil Sugar-Free (aspartame)) 3.4 ea PO DAILY rosuvastatin 40 mg PO DAILY warfarin See Protocol 2-3 tabs daily orally daily; 10mg X 4 days and 12.5mg X3 days 30 days Nursing Note INR: 3.2 out of therapeutic range of 2-3 This is the 5th INR over 3.0. Medications and supplements reviewed Patient status: recovering from a cold Medications or supplements: no changes Diet: pt states he has tried to increase his greens. He had 2 salads last week. Denies any signs and symptoms of bleeding or clotting or unusual bruising Bleeding, bruising, clotting discussed Nutritional guidance given: to have a serving of greens today Dose: decrease weeklt dose by 2.5mg. 10mg X 5 days/12.5mg X 2 days F/U INR Date: 08/22/25?? Patient verbalizing understanding of instructions given. Anti-Coag Initial Assessment Social Hx Patient Tobacco Use Status: Never used Tobacco alcohol intake: never Alcohol intake frequency: does not drink Cardiovascular Hx: HTN Lung Disease HX: DVT/PE Endocrine Hx: Thyroid Disease Musculoskeletal Hx: Other Blood Disorder Hx: Hyperlipidemia GI Hx: Other Neurological Hx: Epilepsy/Seizures and Migraines/Headaches Cancer HX: Yes (basal cell on face) Psych. 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
== END 2025-08-11 08:56 | disposition home or self-care (01) ==
LOC: HO.ACS 08:25
PROVIDERS: PCP Internal Medicine; Visit Provider Internal Medicine Medical Oncology
DX: Z79.01 Long term (current) use of anticoagulants (principal)

== ENCOUNTER → 2025-08-11 08:25 | Outpatient (BNVA) | payer BC, SELFPAY | PROVIDERS: PCP Internal Medicine; Visit Provider Internal Medicine Medical Oncology | DX: I26.99 Other pulmonary embolism without acute cor pulmonale (principal); Z86.718 Personal history of other venous thrombosis and embolism; Z79.01 Long term (current) use of anticoagulants; Z51.81 Encounter for therapeutic drug level monitoring | CPT/HCPCS: 85610; 99211 ==

== ENCOUNTER 2025-08-22 08:00 | Outpatient (AMB) | payer BC, SELFPAY ==
[2025-08-22 08:09] LABS: Prothrombin Time Whole Bld POC 55.5 sec (11.1-13.5); ~PT, ~INR - Anti Coag Clinic 4.6 (0.9-1.1)
--- NOTE | 2025-08-22 08:17 | MHC.OFFVISCO ---
Intake Intake Visit Reasons: Anticoagulation Allergies enoxaparin Adverse Reaction (Mild, Verified 08/22/25 08:04) Headache Medication List - Last Reconciled 08/22/25 by Sayra Ficth RN aspirin 81 mg PO BEDTIME loratadine (Claritin) 10 mg PO DAILY multivitamin 1 tab PO DAILY phenytoin sodium extended 200 mg PO BID psyllium husk (Metamucil Sugar-Free (aspartame)) 3.4 ea PO DAILY rosuvastatin 40 mg PO DAILY warfarin See Protocol 2-3 tabs daily orally daily; 10mg X 4 days and 12.5mg X3 days 30 days Nursing Note OTHER THAN EATING MORE GRAPES THAN USUAL, PT.HAS HAD NO CP,SOB,DIET/MED CHANGES,FALLS OR SX OF BLEEDING. HOLD WARFARIN TODAY THEN RESUME USUAL DOSE AND FOLLOW-UP ON 08/26/25. GOOD UNDERSTANDING OF DOSING INSTR. Anti-Coag Initial Assessment Social Hx Patient Tobacco Use Status: Never used Tobacco alcohol intake: never Alcohol intake frequency: does not drink Cardiovascular Hx: HTN Lung Disease HX: DVT/PE Endocrine Hx: Thyroid Disease Musculoskeletal Hx: Other Blood Disorder Hx: Hyperlipidemia GI Hx: Other Neurological Hx: Epilepsy/Seizures and Migraines/Headaches Cancer HX: Yes (basal cell on face) Psych. Illness/Depression: No Coding Level of Care Code Est Patient Level 1 Diagnoses Current use of anticoagulant therapy Z79.01 Assessment & Plan Assessment & Plan (1) Current use of anticoagulant therapy: Code(s): Z79.01 - intermediate (current) use of 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
== END 2025-08-22 08:21 | disposition home or self-care (01) ==
LOC: HO.ACS 08:00
PROVIDERS: PCP Internal Medicine; Visit Provider Internal Medicine Medical Oncology
DX: Z79.01 Long term (current) use of anticoagulants (principal)

== ENCOUNTER → 2025-08-22 08:00 | Outpatient (BNVA) | payer BC, SELFPAY | PROVIDERS: PCP Internal Medicine; Visit Provider Internal Medicine Medical Oncology | DX: I26.99 Other pulmonary embolism without acute cor pulmonale (principal); Z86.718 Personal history of other venous thrombosis and embolism; Z79.01 Long term (current) use of anticoagulants; Z51.81 Encounter for therapeutic drug level monitoring | CPT/HCPCS: 85610; 99211 ==

== ENCOUNTER → 2025-08-26 07:56 | Outpatient (BNVA) | payer BC, SELFPAY | PROVIDERS: PCP Internal Medicine; Visit Provider Internal Medicine Medical Oncology | DX: I26.99 Other pulmonary embolism without acute cor pulmonale (principal); Z86.718 Personal history of other venous thrombosis and embolism; Z79.01 Long term (current) use of anticoagulants; Z51.81 Encounter for therapeutic drug level monitoring | CPT/HCPCS: 85610; 99211 ==

== ENCOUNTER 2025-09-01 07:59 | Outpatient (AMB) | payer BC, SELFPAY ==
[2025-09-01 08:24] LABS: Prothrombin Time Whole Bld POC 55.0 sec (11.1-13.5); ~PT, ~INR - Anti Coag Clinic 4.6 (0.9-1.1)
--- NOTE | 2025-09-01 08:32 | MHC.OFFVISCO ---
Intake Intake Visit Reasons: Anticoagulation Allergies enoxaparin Adverse Reaction (Mild, Verified 09/01/25 08:18) Headache Medication List - Last Reconciled 09/01/25 by Mayela Connelly RN aspirin 81 mg PO BEDTIME loratadine (Claritin) 10 mg PO DAILY multivitamin 1 tab PO DAILY phenytoin sodium extended 200 mg PO BID psyllium husk (Metamucil Sugar-Free (aspartame)) 3.4 ea PO DAILY rosuvastatin 40 mg PO DAILY warfarin See Protocol 2-3 tabs daily orally daily; 10mg X 4 days and 12.5mg X3 days 30 days Nursing Note INR: 4.6 out of therapeutic range of 2-3 Pt reports he is under stress taking care of his mother Medications and supplements reviewed Patient status: no changes Medications or supplements: no changes Diet: usual diet Denies any signs and symptoms of bleeding or clotting or unusual bruising Bleeding, bruising, clotting discussed Nutritional guidance given: to have a serving of greens today Dose: hold today's dose of 10 mg then usual dose of 10mg X 5 days and 12.5mg X 2 days F/U INR Date : 1 week?? Patient verbalizing understanding of instructions given. Anti-Coag Initial Assessment Social Hx Patient Tobacco Use Status: Never used Tobacco alcohol intake: never Alcohol intake frequency: does not drink Cardiovascular Hx: HTN Lung Disease HX: DVT/PE Endocrine Hx: Thyroid Disease Musculoskeletal Hx: Other Blood Disorder Hx: Hyperlipidemia GI Hx: Other Neurological Hx: Epilepsy/Seizures and Migraines/Headaches Cancer HX: Yes (basal cell on face) Psych. Illness/Depression: No Coding Level of Care Code Est Patient Level 1 Diagnoses Current use of anticoagulant therapy Z79.01 Assessment & Plan Assessment & Plan (1) Current use of anticoagulant therapy: Code(s): Z79.01 - [facility] (current) use of 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
== END 2025-09-01 08:35 | disposition home or self-care (01) ==
LOC: HO.ACS 07:59
PROVIDERS: PCP Internal Medicine; Visit Provider Internal Medicine Medical Oncology
DX: Z79.01 Long term (current) use of anticoagulants (principal)

== ENCOUNTER → 2025-09-01 07:59 | Outpatient (BNVA) | payer BC, SELFPAY | PROVIDERS: PCP Internal Medicine; Visit Provider Internal Medicine Medical Oncology | DX: Z86.711 Personal history of pulmonary embolism (principal); Z86.718 Personal history of other venous thrombosis and embolism; Z51.81 Encounter for therapeutic drug level monitoring; Z79.01 Long term (current) use of anticoagulants | CPT/HCPCS: 85610; 99211 ==

== ENCOUNTER 2025-09-09 08:01 | Outpatient (AMB) | payer BC, SELFPAY ==
[2025-09-09 08:12] LABS: Prothrombin Time Whole Bld POC 38.9 sec (11.1-13.5); ~PT, ~INR - Anti Coag Clinic 3.2 (0.9-1.1)
--- NOTE | 2025-09-09 08:25 | MHC.OFFVISCO ---
Intake Intake Visit Reasons: Anticoagulation Allergies enoxaparin Adverse Reaction (Mild, Verified 09/09/25 08:07) Headache Medication List - Last Reconciled 09/09/25 by Aye Johnson RN aspirin 81 mg PO BEDTIME loratadine (Claritin) 10 mg PO DAILY multivitamin 1 tab PO DAILY phenytoin sodium extended 200 mg PO BID psyllium husk (Metamucil Sugar-Free (aspartame)) 3.4 ea PO DAILY rosuvastatin 40 mg PO DAILY warfarin See Protocol 2-3 tabs daily orally daily; 10mg X 4 days and 12.5mg X3 days 30 days Nursing Note INR: 3.2 almost in therapeutic range Medications and supplements reviewed No changes in health, diet, medications, or supplements, Denies any signs and symptoms of bleeding or bruising or clotting. Bleeding, bruising, clotting discussed Nutritional guidance given Dose: resume 12.5mg x 1 day/ 10mg x 6 days so he can have 2 servings of dark greens plus his low greens F/U INR: 1 week Patient verbalizes understanding of instructions given Anti-Coag Initial Assessment Social Hx Patient Tobacco Use Status: Never used Tobacco alcohol intake: never Alcohol intake frequency: does not drink Cardiovascular Hx: HTN Lung Disease HX: DVT/PE Endocrine Hx: Thyroid Disease Musculoskeletal Hx: Other Blood Disorder Hx: Hyperlipidemia GI Hx: Other Neurological Hx: Epilepsy/Seizures and Migraines/Headaches Cancer HX: Yes (basal cell on face) Psych. Illness/Depression: No Coding Level of Care Code Est Patient Level 1 Diagnoses Current use of anticoagulant therapy Z79.01 Results AMB INR Fingerstick AMB INR Fingerstick 3.2 Last Edit by Aye Johnson RN on 09/09/25 08:15 manual entry Assessment & Plan Assessment & Plan (1) Current use of anticoagulant therapy: Code(s): Z79.01 - assisted (current) use of 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
== END 2025-09-09 08:28 | disposition home or self-care (01) ==
LOC: HO.ACS 08:01
PROVIDERS: PCP Internal Medicine; Visit Provider Internal Medicine Medical Oncology
DX: Z79.01 Long term (current) use of anticoagulants (principal)

== ENCOUNTER → 2025-09-09 08:01 | Outpatient (BNVA) | payer BC, SELFPAY | PROVIDERS: PCP Internal Medicine; Visit Provider Internal Medicine Medical Oncology | DX: Z79.01 Long term (current) use of anticoagulants (principal) | CPT/HCPCS: 85610; 99211 ==

== ENCOUNTER 2025-09-15 07:58 | Outpatient (AMB) | payer BC, SELFPAY ==
[2025-09-15 08:07] LABS: Prothrombin Time Whole Bld POC 59.6 sec (11.1-13.5); ~PT, ~INR - Anti Coag Clinic 5.0 (0.9-1.1)
[2025-09-15 08:11] LABS: Prothrombin Time Whole Bld POC 59.8 sec (11.1-13.5); ~PT, ~INR - Anti Coag Clinic 5.0 (0.9-1.1)
--- NOTE | 2025-09-15 08:24 | MHC.OFFVISCO ---
Intake Intake Visit Reasons: Anticoagulation Allergies enoxaparin Adverse Reaction (Mild, Verified 09/15/25 08:02) Headache Medication List - Last Reconciled 09/15/25 by Aye Johnson RN aspirin 81 mg PO BEDTIME loratadine (Claritin) 10 mg PO DAILY multivitamin 1 tab PO DAILY phenytoin sodium extended 200 mg PO BID psyllium husk (Metamucil Sugar-Free (aspartame)) 3.4 ea PO DAILY rosuvastatin 40 mg PO DAILY warfarin See Protocol 2-3 tabs daily orally daily; 10mg X 4 days and 12.5mg X3 days 30 days Nursing Note INR 5.0 out of therapeutic range Medications and supplements reviewed Patient status: Pt states he had a day he believes he took an extra 12.5 mg last . INR have been trending up and he was to increase his greens which he did plus had milk chocolate to help keep INR in range - but the extra dose is mostly likely the cause for his elevated INR Medications or supplements: no change Diet: good Denies any signs and symptoms of bleeding or clotting or unusual bruising Bleeding, bruising, clotting discussed Nutritional guidance given: cooked green today Dose: decrease by 12.5mg this week , hold today's dose 7.5mg tomorrow the 10mg mon and recheck morning F/U INR Date: 09/18/2025?? Pt understands to go to ER for any unusual bleeding or bruising, or bump to his head and will apply cold compress and seek medical attention Patient verbalizing understanding of instructions given. Anti-Coag Initial Assessment Social Hx Patient Tobacco Use Status: Never used Tobacco alcohol intake: never Alcohol intake frequency: does not drink Cardiovascular Hx: HTN Lung Disease HX: DVT/PE Endocrine Hx: Thyroid Disease Musculoskeletal Hx: Other Blood Disorder Hx: Hyperlipidemia GI Hx: Other Neurological Hx: Epilepsy/Seizures and Migraines/Headaches Cancer HX: Yes (basal cell on face) Psych. Illness/Depression: No Coding Level of Care Code Est Patient Level 1 Diagnoses Current use of anticoagulant therapy Z79.01 Comment msg and t/c to PCP for critical result Assessment & Plan Assessment & Plan (1) Current use of anticoagulant therapy: Code(s): Z79.01 - residential (current) use of 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
== END 2025-09-15 08:32 | disposition home or self-care (01) ==
LOC: HO.ACS 07:58
PROVIDERS: PCP Internal Medicine; Visit Provider Internal Medicine Medical Oncology
DX: Z79.01 Long term (current) use of anticoagulants (principal)

== ENCOUNTER → 2025-09-15 07:58 | Outpatient (BNVA) | payer BC, SELFPAY | PROVIDERS: PCP Internal Medicine; Visit Provider Internal Medicine Medical Oncology | DX: I26.99 Other pulmonary embolism without acute cor pulmonale (principal); I82.401 Acute embolism and thrombosis of unspecified deep veins of right lower extremity; Z51.81 Encounter for therapeutic drug level monitoring; Z79.01 Long term (current) use of anticoagulants | CPT/HCPCS: 85610; 99211 ==

== ENCOUNTER 2025-09-18 07:43 | Outpatient (AMB) | payer BC, SELFPAY ==
[2025-09-18 07:51] LABS: Prothrombin Time Whole Bld POC 24.4 sec (11.1-13.5); ~PT, ~INR - Anti Coag Clinic 2.0 (0.9-1.1)
--- NOTE | 2025-09-18 07:58 | MHC.OFFVISCO ---
Intake Intake Visit Reasons: Anticoagulation Allergies enoxaparin Adverse Reaction (Mild, Verified 09/15/25 08:02) Headache Nursing Note INR: 2.0 in therapeutic range- PREVIOUS INR 5.0 -DUE TO EXTRA DOSE Medications and supplements reviewed No changes in health, diet, medications, or supplements, Denies any signs and symptoms of bleeding or bruising or clotting. Bleeding, bruising, clotting discussed Nutritional guidance given - 3 DARK [place] WEEKLY - NOT TODAY THOUGH Dose: resume 12.5mg x 1 day/ 10mg x 6 days F/U INR: 1 week Patient verbalizes understanding of instructions given Anti-Coag Initial Assessment Social Hx Patient Tobacco Use Status: Never used Tobacco alcohol intake: never Alcohol intake frequency: does not drink Cardiovascular Hx: HTN Lung Disease HX: DVT/PE Endocrine Hx: Thyroid Disease Musculoskeletal Hx: Other Blood Disorder Hx: Hyperlipidemia GI Hx: Other Neurological Hx: Epilepsy/Seizures and Migraines/Headaches Cancer HX: Yes (basal cell on face) Psych. 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
== END 2025-09-18 08:01 | disposition home or self-care (01) ==
LOC: HO.ACS 07:44
PROVIDERS: PCP Internal Medicine; Visit Provider Internal Medicine Medical Oncology
DX: Z79.01 Long term (current) use of anticoagulants (principal)

== ENCOUNTER → 2025-09-18 07:43 | Outpatient (BNVA) | payer BC, SELFPAY | PROVIDERS: PCP Internal Medicine; Visit Provider Internal Medicine Medical Oncology | DX: Z79.01 Long term (current) use of anticoagulants (principal) | CPT/HCPCS: 85610; 99211 ==

== ENCOUNTER 2025-09-23 07:56 | Outpatient (AMB) | payer BC, SELFPAY ==
[2025-09-23 08:03] LABS: Prothrombin Time Whole Bld POC 40.2 sec (11.1-13.5); ~PT, ~INR - Anti Coag Clinic 3.3 (0.9-1.1)
--- NOTE | 2025-09-23 08:18 | MHC.OFFVISCO ---
Intake Intake Visit Reasons: Anticoagulation Allergies enoxaparin Adverse Reaction (Mild, Verified 09/23/25 07:58) Headache Medication List - Last Reconciled 09/23/25 by Aye Johnson RN aspirin 81 mg PO BEDTIME loratadine (Claritin) 10 mg PO DAILY multivitamin 1 tab PO DAILY phenytoin sodium extended 200 mg PO BID psyllium husk (Metamucil Sugar-Free (aspartame)) 3.4 ea PO DAILY rosuvastatin 40 mg PO DAILY warfarin See Protocol 2-3 tabs daily orally daily; 10mg X 4 days and 12.5mg X3 days 30 days Nursing Note INR: 3.3 in therapeutic range Medications and supplements reviewed Has right eye stye over 3 weeks- enc to call PCP or eye Dr- msg sent to PCP - pt advised to f/u with her or eye MD No changes in diet, medications, or supplements, Denies any signs and symptoms of bleeding or bruising or clotting. Bleeding, bruising, clotting discussed Nutritional guidance given - eat 3 servings of greens/ week Dose: 12.5mg x 1 day/ 10mg x 6 days F/U INR: 1 week Patient verbalizes understanding of instructions given Anti-Coag Initial Assessment Social Hx Patient Tobacco Use Status: Never used Tobacco alcohol intake: never Alcohol intake frequency: does not drink Cardiovascular Hx: HTN Lung Disease HX: DVT/PE Endocrine Hx: Thyroid Disease Musculoskeletal Hx: Other Blood Disorder Hx: Hyperlipidemia GI Hx: Other Neurological Hx: Epilepsy/Seizures and Migraines/Headaches Cancer HX: Yes (basal cell on face) Psych. 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
== END 2025-09-23 08:20 | disposition home or self-care (01) ==
LOC: HO.ACS 07:56
PROVIDERS: PCP Internal Medicine; Visit Provider Internal Medicine Medical Oncology
DX: Z79.01 Long term (current) use of anticoagulants (principal)

== ENCOUNTER → 2025-09-23 07:56 | Outpatient (BNVA) | payer BC, SELFPAY | PROVIDERS: PCP Internal Medicine; Visit Provider Internal Medicine Medical Oncology | DX: H00.013 Hordeolum externum right eye, unspecified eyelid (principal); Z23 Encounter for immunization; E78.00 Pure hypercholesterolemia, unspecified; R56.9 Unspecified convulsions; Z86.718 Personal history of other venous thrombosis and embolism; Z86.711 Personal history of pulmonary embolism; Z79.01 Long term (current) use of anticoagulants; Z79.899 Other long term (current) drug therapy; Z13.31 Encounter for screening for depression | CPT/HCPCS: 85610; 90471; 90656; 96127; 99211 ==

== ENCOUNTER 2025-09-23 08:37 | Outpatient (AMB) | payer BC, SELFPAY ==
[2025-09-23 08:44] VITALS: BP 110/82; PULSE 72; O2SAT 96; BMI 28.3
--- NOTE | 2025-09-23 08:44 | MHC.PC.OV ---
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 Accompanied by: Self / Same As Patient Allergies enoxaparin Adverse Reaction (Mild, Verified 09/23/25 09:05) Headache Medication List - Last Reconciled 09/23/25 by Keyona Carter MD aspirin 81 mg PO BEDTIME loratadine (Claritin) 10 mg PO DAILY multivitamin 1 tab PO DAILY phenytoin sodium extended 200 mg PO BID psyllium husk (Metamucil Sugar-Free (aspartame)) 3.4 ea PO DAILY rosuvastatin 40 mg PO DAILY warfarin See Protocol 2-3 tabs daily orally daily; 10mg X 4 days and 12.5mg X3 days 30 days Tobacco use date assessed: 09/23/25 Dental Screening Dental Screen Date: 09/23/25 Did you have a dental visit in the last 12 months?: No Did you have a dental problem in the last 6 months where you did not have access to dental care?: No Was dental information given to patient?: Patient has dentist HPI HPI Comments History of Present Illness Details The patient is a 60-year-old male presenting with a persistent stye that began almost a month ago. He has attempted home remedies including warm compresses and tea bags without resolution. The patient reports it is more bothersome in the morning upon waking. The patient's past medical history is significant for DVT and pulmonary embolism, for which he takes Coumadin. He also has a history of seizures, and takes phenytoin 100 mg twice daily, with no recent seizure activity reported. His current medications include rosuvastatin 40 mg, baby aspirin, Claritin as needed, multivitamins, and Metamucil. He reports a history of headache with Lovenox and denies any abnormal bleeding. Regarding health maintenance, the patient mentions he canceled his last physical. He reports that he gets full blood panels with Dr. Esteban, and his most recent lab work was described as excellent. REPLACED BY [facility] Medical History (Updated 09/23/25 @ 10:27 by Keyona Carter MD) DVT (deep venous thrombosis) Pulmonary embolism Current use of anticoagulant therapy History of basal cell carcinoma Physical exam Thyroid nodule Dyspnea Allergic rhinitis Pure hypercholesterolemia Seizures Surgical History History of surgery History of colonoscopy H/O basal cell carcinoma excision Family History Father Myocardial infarction Uncontrolled persistent asthma Mother COPD (chronic obstructive pulmonary disease) Breast cancer Sister Asthma Brain tumor Maternal Aunt Breast cancer Social History Household Members: Spouse Housing: Condominium Housing Other:: lives with spouse Do you presently have visiting nurse or other home services: No Alcohol intake: never Patient Tobacco Use Status: Never used Tobacco e-Cigarette/Vaping Use: Never Used Second Hand Smoke Exposure: No service: No Current occupational status: unemployed and retired 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 1. Little interest or pleasure in doing things: not at all 2. Feeling down, depressed, or hopeless: several days 3. Trouble falling or staying asleep, or sleeping too much: not at all 4. Feeling tired or having little energy: not at all 5. Poor appetite or overeating: not at all 6. Feeling bad about yourself - or that you are a failure or have let yourself or your family down: not at all 7. Trouble concentrating on things, such as reading the newspaper or watching television: not at all 8. Moving or speaking so slowly that other people could have noticed. Or the opposite - being so fidgety or restless that you have been moving around a lot more than usual: not at all 9. Thoughts that you would be better off or of hurting yourself in some way: not at all Total score: 1 Depression Screening Interpretation: Negative Depression Screening Done: Yes 52817 - PHQ-9 Billing: Yes Source: Developed by Drs. Cheng Ingram, Elif Perry, Patricio Xie and colleagues, with an educational dex from [employer]. Thrive Questionnaire Date Thrive assessed: 09/23/25 I am a: Patient What is your living situation today?: I have a steady place to live Within the past 12 months, did the food you bought not last and you didn't have the money to get more?: Never true Within the past 12 months, did you worry whether your food would run out before you got money to buy more?: Never true Do you have trouble paying for medicines?: No Do you have trouble getting transportation to medical appointments?: No Do you have trouble paying your heating and electricity bill?: No Do you have trouble taking care of your child, family member or friend?: No Do you have trouble with day-to-day activities such as bathing, preparing meals, shopping, managing finances, etc.?: No Are you currently unemployed and looking for a job?: No Are you interested in more education?: No Please select the resources that you would like help with: None Currently or been in a relationship where the following occur: No concerns reported THRIVE Score: 0 AUDIT C Alcohol Use Questionnaire (AUDIT-C) 1. How often do you have a drink containing alcohol?: Never 3. How often do you have six or more drinks on one occasion?: Never Total Score: 0 Score Reviewed/Action Taken: No NAHID-7 AMB Questionnaire NAHID-7 Date NAHID - 7 assessed: 02/22/24 Source: Developed by Drs. Cheng Ingram, Elif Perry, Patricio Xie and colleagues, with an educational dex from [employer]. Review of Systems Const All systems reviewed & are unremarkable except as noted in HPI and below Card Denies chest pain at rest, Denies chest pain with activity, Denies edema, Denies irregular heart rhythm, Denies claudication, Denies dyspnea, Denies dyspnea on exertion, Denies orthopnea, Denies paroxysmal nocturnal dyspnea and Denies slow heart rate Resp Denies cough, Denies dyspnea and Denies dyspnea on exertion Physical exam (Primary Care) Vital Signs: Last Vital Signs Pulse 72 09/23/25 08:44 BP 110/82 09/23/25 08:44 Pulse Ox 96 09/23/25 08:44 Oxygen Delivery Method Room Air 09/23/25 08:44 BMI result Body Mass Index 28.3 Tobacco/Smoking Status: Tobacco use Status Tobacco use date assessed 09/23/25 09/23/25 08:52 Patient Tobacco Use Status Never used Tobacco 09/23/25 08:52 e-Cigarette/Vaping Use Never Used 09/23/25 08:52 PHQ-9: PHQ-9 Score PHQ-9: Total score 1 09/23/25 09:17 Depression Screening Interpretation: Negative Thrive Assessment: Date of Thrive Assessment Date Thrive assessed 09/23/25 09/23/25 08:52 Currently or been in a relationship where the following occur: No concerns reported Resp Effort & Inspection: normal respiratory effort Auscultation: clear to auscultation bilaterally Cardio Jugular venous distension: no JVD Rate: regular rate Rhythm: regular rhythm Heart sounds: S1 normal heart sound present and S2 normal heart sound present Extrem General: Yes full ROM Office Procedures Flu Questionnaire Does the patient have a severe egg allergy?: No Does the patient have severe life threatening allergies?: No Does the patient have a fever or illness today?: No Has the patient ever had Guillain-[place] Syndrome?: No Has the patient ever had any past reaction to a flu shot?: No Immunizations Fluarix [id number] (PF) 45 mcg (15 mcg x 3)/0.5 mL IM syringe Performing Provider: Keyona Carter MD [facility] [facility] Administered by: Vane Mena CMA on 09/23/25 09:17 Dose Route Admin Location Dispensed Lot Number Expiration Date 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 0.5 mL IM Left Deltoid 0.5 mL [id number] 05/12/26 01771-336-65 [employer] VIS Given Date VIS Provided VIS Publication Date 09/23/25 Single Vaccine 24 Eligibility Eligibility Date Funding Source Not [facility] Eligible 09/23/25 Private Coding Level of Care Code Est Pt Level 4 (31834) Diagnoses Stye H00.019 Pure hypercholesterolemia E78.00 Pulmonary embolism I26.99 Seizures R56.9 Additional Codes PHQ-9 - 99656 - PHQ-9 Billing: Yes ([id number]) Time Spent (min) 22 Assessment & Plan Assessment & Plan (1) Stye: Code(s): H00.019 - Hordeolum externum unspecified eye, unspecified eyelid Category: Medical (2) Pure hypercholesterolemia: Code(s): E78.00 - Pure hypercholesterolemia, unspecified Category: Medical (3) Pulmonary embolism: Code(s): I26.99 - Other pulmonary embolism without acute cor pulmonale Category: Medical (4) Seizures: Code(s): R56.9 - Unspecified convulsions Category: Medical Plan Plan 1. Hordeolum The patient's persistent stye is attributed to a blocked Meibomian gland, a condition that can occur with age and skin dryness. The plan is to prescribe erythromycin ointment. If the condition does not resolve in one week, the patient should provide an update, as a referral to ophthalmology may be necessary. 2. Pure hypercholesterolemia Continue statins. 3. Seizures Follow-up with neurology. Continue phenytoin. 4. Pulmonary embolism Continue Coumadin and follow-up with Hematology-Oncology. Orders: Orders Comprehensive [place]. Panel Fast 6 Months I26.99 - Other pulmonary embolism without acute cor pulmonale Influenza [id number] Immunization Today Z23 - Encounter for immunization Lipid Panel 6 Months E78.5 - Hyperlipidemia, unspecified Medications: New erythromycin 1 appl ophthalmic-Right DAILY 3.5 grams 0RF 7 days H00.019 - Hordeolum externum unspecified eye, unspecified eyelid
== END 2025-09-23 09:23 | disposition home or self-care (01) ==
LOC: HO.HMCH 08:37
PROVIDERS: PCP Internal Medicine; Visit Provider Internal Medicine
DX: H00.019 Hordeolum externum unspecified eye, unspecified eyelid (principal); E78.00 Pure hypercholesterolemia, unspecified; I26.99 Other pulmonary embolism without acute cor pulmonale; R56.9 Unspecified convulsions; Z23 Encounter for immunization

== ENCOUNTER 2025-09-29 07:47 | Outpatient (REF) | payer BC, SELFPAY | END 2025-09-29 07:48 | disposition home or self-care (01) | LOC: HO.LAB 07:47 | PROVIDERS: PCP Internal Medicine; Visit Provider Registered Nurse | DX: Z51.81 Encounter for therapeutic drug level monitoring (principal); G40.909 Epilepsy, unspecified, not intractable, without status epilepticus | CPT/HCPCS: 36415; 80185; 85610; 99211 ==

== ENCOUNTER 2025-09-29 07:56 | Outpatient (AMB) | payer BC, SELFPAY ==
[2025-09-29 08:06] LABS: Prothrombin Time Whole Bld POC 35.8 sec (11.1-13.5); ~PT, ~INR - Anti Coag Clinic 3.0 (0.9-1.1)
--- NOTE | 2025-09-29 08:14 | MHC.OFFVISCO ---
Intake Intake Visit Reasons: Anticoagulation Allergies enoxaparin Adverse Reaction (Mild, Verified 09/29/25 08:01) Headache Medication List - Last Reconciled 09/29/25 by Mayela Connelly RN aspirin 81 mg PO BEDTIME erythromycin 1 appl ophthalmic-Right DAILY 7 days loratadine (Claritin) 10 mg PO DAILY multivitamin 1 tab PO DAILY phenytoin sodium extended 200 mg PO BID psyllium husk (Metamucil Sugar-Free (aspartame)) 3.4 ea PO DAILY rosuvastatin 40 mg PO DAILY warfarin See Protocol 2-3 tabs daily orally daily; 10mg X 4 days and 12.5mg X3 days 30 days Nursing Note INR: 3.0 in therapeutic range of 2-3 Medications and supplements reviewed No changes in health, diet, medications, or supplements, Denies any signs and symptoms of bleeding or bruising or clotting. Bleeding, bruising, clotting discussed Nutritional guidance given to have a serving of greens today Dose: 10mg X 6 days and 12.5mg X 1 day F/U INR: 2 weeks Patient verbalizes understanding of instructions given Anti-Coag Initial Assessment Social Hx Patient Tobacco Use Status: Never used Tobacco alcohol intake: never Alcohol intake frequency: does not drink Cardiovascular Hx: HTN Lung Disease HX: DVT/PE Endocrine Hx: Thyroid Disease Musculoskeletal Hx: Other Blood Disorder Hx: Hyperlipidemia GI Hx: Other Neurological Hx: Epilepsy/Seizures and Migraines/Headaches Cancer HX: Yes (basal cell on face) Psych. 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
== END 2025-09-29 08:16 | disposition home or self-care (01) ==
LOC: HO.ACS 07:56
PROVIDERS: PCP Internal Medicine; Visit Provider Internal Medicine Medical Oncology
DX: Z79.01 Long term (current) use of anticoagulants (principal)

== ENCOUNTER 2025-10-02 08:21 | Outpatient (AMB) | payer BC, SELFPAY ==
--- NOTE | 2025-10-02 08:31 | MHC.OFFVIS ---
Intake Visit Reasons: 6 months f/u Allergies enoxaparin Adverse Reaction (Mild, Verified 10/02/25 08:37) Headache Medication List - Last Reconciled 10/02/25 by Mi Chen CNP aspirin 81 mg PO BEDTIME erythromycin 1 appl ophthalmic-Right DAILY 7 days loratadine (Claritin) 10 mg PO DAILY multivitamin 1 tab PO DAILY phenytoin sodium extended 200 mg PO BID psyllium husk (Metamucil Sugar-Free (aspartame)) 3.4 ea PO DAILY rosuvastatin 40 mg PO DAILY warfarin See Protocol 2-3 tabs daily orally daily; 10mg X 4 days and 12.5mg X3 days 30 days HPI Comments Details: He was doing okay. Taking Dilantin twice a day, no medication side effects. No seizures. Still taking warfarin. Sleep was okay. Ongoing stress due to caring for mother who has some health issues. Going to gym and exercising regularly.? Dilantin 17.4 on 10/07/24. Had a femoral clot on the right ? traumatic and 2 large PE in 01/2024. He had extraction of clot from right femoral vein. On coumadin. Had seizure followed by another small seizure on 11/26/15 with Dilantin level of 4.1. Seizure before this was post op at [facility] on 08/2015 and again the level had dropped to 5. Before 2014 he had been seizure free for 6 yrs. First seizure was around age 39. Hx of head trauma at work a few times without LOC. Had a seizure with urinary incontinence for 1 minute on 08/15/15 post op with a level of 4.1 (from 12.1 about 10 days earlier). History of elevated cholesterol and LDL. [facility] Medical History DVT (deep venous thrombosis) Pulmonary embolism Current use of anticoagulant therapy History of basal cell carcinoma Physical exam Thyroid nodule Dyspnea Allergic rhinitis Pure hypercholesterolemia Seizures Surgical History History of surgery History of colonoscopy H/O basal cell carcinoma excision Family History Father Myocardial infarction Uncontrolled persistent asthma Mother COPD (chronic obstructive pulmonary disease) Breast cancer Sister Asthma Brain tumor Maternal Aunt Breast cancer Social History Household Members: Spouse Housing: Condominium Housing Other:: lives with spouse Do you presently have visiting nurse or other home services: No Alcohol intake: never Patient Tobacco Use Status: Never used Tobacco e-Cigarette/Vaping Use: Never Used Second Hand Smoke Exposure: No service: No Current occupational status: unemployed and retired 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 ) Cognitive needs: No Hearing needs: No Vision needs: No Review of Systems Const Denies chills, Denies daytime sleepiness, Denies difficulty sleeping, Denies fatigue, Denies fever(s), Denies frequent falls, Denies headache(s), Denies increased appetite, Denies poor appetite, Denies snoring, Denies weakness, Denies weight gain and Denies weight loss Eyes Denies loss of vision ENT Denies vertigo, Denies dizziness, Denies headache(s) and Denies neck pain Card Denies chest pain at rest, Denies chest pain with activity, Denies syncope, Denies leg edema, Denies palpitations, Denies dyspnea and Denies dyspnea on exertion Resp Denies cough, Denies dyspnea, Denies dyspnea on exertion and Denies snoring GI Denies abdominal pain, Denies constipation, Denies heartburn, Denies diarrhea and Denies nausea Denies urinary frequency, Denies urinary incontinence and Denies urinary urgency Musc Denies abnormal gait, Denies back pain, Denies myalgias, Denies arthralgias, Denies neck pain, Denies numbness and Denies tingling Neuro Denies abnormal gait, Denies vertigo, Denies dizziness, Denies syncope, Denies frequent falls, Denies headache(s), Denies lack of coordination, Denies loss of vision, Denies memory loss, Denies numbness, Denies Other visual disturbances, Denies restless legs, Denies seizure-like activity, Denies tingling, Denies paresthesias, Denies tremor(s) and Denies weakness Psych Denies anxiety, Denies depression, Denies auditory hallucinations, Denies memory loss and Denies visual hallucinations Endo Denies fatigue and Denies palpitations Physical Exam Const Other: General Appearance:? normal, in no acute distress. Heart:? S1, S2 normal, no murmurs. Lungs:? clear anteriorly and posteriorly. Musculoskeletal:? normal. Extremities:? no edema. Psych:? alert, oriented, cognitive function intact, cooperative with exam. Neuro Other: Abnormal Neurological Findings:?none.? Mental Status: alert and oriented X 3. Normal attention, orientation, memory, and affect. Cranial Nerves: Pupils are equal, round, and reactive to light. External ocular muscles are intact. Visual burgos are full, no ptosis. Face is symmetrical, no facial weakness or droop. Facial sensations are normal. Tongue protrudes in midline. Palate elevates symmetrically. Shoulder shrugging is normal Motor Examination: Normal muscle tone, bulk and strength. No atrophy or fasciculations. No drift of the extended upper extremities. DTR 2+. Plantars are flexor. Sensory Exam: Normal light touch, temperature, pinprick, vibration, and joint-position sensations. Rhomberg sign is absent. Coordination: No ataxia. No titubation. Gait Exam: Within normal limits. Cerebellar Signs: [id number] is okay. Extrapyramidal System: No tremor, rigidity with normal facial expressions. No bradykinesia. No bradyphrenia. Normal arm swing and posture. No propulsion or retropulsion. Speech: Normal. Results Reviewed Results Reviewed: Laboratory Tests 10/07/24 09/29/25 09:47 07:58 Phenytoin 17.3 13.1 Assessment & Plan Assessment & Plan (1) Seizure disorder: Code(s): G40.909 - Epilepsy, unspecified, not intractable, without status epilepticus Category: Medical Plan: Continue phenytoin sodium extended 100mg 2 capsules twice a day. Medications: Changed From phenytoin sodium extended 200 mg PO BID To phenytoin sodium extended 200 mg (2 x 100 mg) PO BID 360 caps 1RF 90 days Coding Level of Care Code Est Pt Level 4 (72332) Diagnoses Seizure disorder G40.909
== END 2025-10-02 08:46 | disposition home or self-care (01) ==
LOC: HO.HSM 08:22
PROVIDERS: PCP Internal Medicine; Referring Provider Internal Medicine; Visit Provider Registered Nurse
DX: G40.909 Epilepsy, unspecified, not intractable, without status epilepticus (principal)
CPT/HCPCS: 99214

== ENCOUNTER 2025-10-13 07:59 | Outpatient (AMB) | payer BC, SELFPAY ==
[2025-10-13 08:08] LABS: Prothrombin Time Whole Bld POC 40.4 sec (11.1-13.5); ~PT, ~INR - Anti Coag Clinic 3.4 (0.9-1.1)
--- NOTE | 2025-10-13 08:15 | MHC.OFFVISCO ---
Intake Intake Visit Reasons: Anticoagulation Allergies enoxaparin Adverse Reaction (Mild, Verified 10/13/25 08:01) Headache Medication List - Last Reconciled 10/13/25 by Mayela Connelly RN aspirin 81 mg PO BEDTIME erythromycin 1 appl ophthalmic-Right DAILY 7 days loratadine (Claritin) 10 mg PO DAILY multivitamin 1 tab PO DAILY phenytoin sodium extended 200 mg (2 x 100 mg) PO BID 90 days psyllium husk (Metamucil Sugar-Free (aspartame)) 3.4 ea PO DAILY rosuvastatin 40 mg PO DAILY warfarin See Protocol 2-3 tabs daily orally daily; 10mg X 4 days and 12.5mg X3 days 30 days Nursing Note INR: 3.4 out of therapeutic range of 2-3 Medications and supplements reviewed No changes in health, diet, medications, or supplements, Denies any signs and symptoms of bleeding or bruising or clotting. Bleeding, bruising, clotting discussed Nutritional guidance given to have greens today Dose: weekly dose decreased by 2.5mg. Pt will take 10mg daily F/U INR: 2 weeks Patient verbalizes understanding of instructions given Anti-Coag Initial Assessment Social Hx Patient Tobacco Use Status: Never used Tobacco alcohol intake: never Alcohol intake frequency: does not drink Cardiovascular Hx: HTN Lung Disease HX: DVT/PE Endocrine Hx: Thyroid Disease Musculoskeletal Hx: Other Blood Disorder Hx: Hyperlipidemia GI Hx: Other Neurological Hx: Epilepsy/Seizures and Migraines/Headaches Cancer HX: Yes (basal cell on face) Psych. 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
== END 2025-10-13 11:32 | disposition home or self-care (01) ==
LOC: HO.ACS 07:59
PROVIDERS: PCP Internal Medicine; Visit Provider Internal Medicine Medical Oncology
DX: Z79.01 Long term (current) use of anticoagulants (principal)

== ENCOUNTER → 2025-10-13 07:59 | Outpatient (BNVA) | payer BC, SELFPAY | PROVIDERS: PCP Internal Medicine; Visit Provider Internal Medicine Medical Oncology | DX: I26.99 Other pulmonary embolism without acute cor pulmonale (principal); Z79.01 Long term (current) use of anticoagulants; Z51.81 Encounter for therapeutic drug level monitoring | CPT/HCPCS: 85610; 99211 ==

== ENCOUNTER 2025-10-27 08:14 | Outpatient (AMB) | payer BC, SELFPAY ==
[2025-10-27 08:22] LABS: Prothrombin Time Whole Bld POC 44.2 sec (11.1-13.5); ~PT, ~INR - Anti Coag Clinic 3.7 (0.9-1.1)
--- NOTE | 2025-10-27 08:27 | MHC.OFFVISCO ---
Intake Intake Visit Reasons: Anticoagulation Allergies enoxaparin Adverse Reaction (Mild, Verified 10/27/25 08:15) Headache Medication List - Last Reconciled 10/27/25 by Mayela Connelly RN aspirin 81 mg PO BEDTIME erythromycin 1 appl ophthalmic-Right DAILY 7 days loratadine (Claritin) 10 mg PO DAILY multivitamin 1 tab PO DAILY phenytoin sodium extended 200 mg (2 x 100 mg) PO BID 90 days psyllium husk (Metamucil Sugar-Free (aspartame)) 3.4 ea PO DAILY rosuvastatin 40 mg PO DAILY warfarin See Protocol 2-3 tabs daily orally daily; 10mg X 4 days and 12.5mg X3 days 30 days Nursing Note INR: 3.7? out of therapeutic range of 2-3 Medications and supplements reviewed Patient status: no changes Medications or supplements: no changes Diet: usual diet for pt Denies any signs and symptoms of bleeding or clotting or unusual bruising Bleeding, bruising, clotting discussed Nutritional guidance given: to have a serving of greens today Dose: decrease today and tomorrow's dose to 7.5mg (usual 10mg) then usual dose of 10mg daily F/U INR Date: 1 week?? Patient verbalizing understanding of instructions given. Anti-Coag Initial Assessment Social Hx Patient Tobacco Use Status: Never used Tobacco alcohol intake: never Alcohol intake frequency: does not drink Cardiovascular Hx: HTN Lung Disease HX: DVT/PE Endocrine Hx: Thyroid Disease Musculoskeletal Hx: Other Blood Disorder Hx: Hyperlipidemia GI Hx: Other Neurological Hx: Epilepsy/Seizures and Migraines/Headaches Cancer HX: Yes (basal cell on face) Psych. Illness/Depression: No Coding Level of Care Code Est Patient Level 1 Diagnoses Current use of anticoagulant therapy Z79.01 Results AMB INR Fingerstick AMB INR Fingerstick 3.7 Last Edit by Mayela Connelly RN on 10/27/25 08:26 interface delay Assessment & Plan Assessment & Plan (1) Current use of anticoagulant therapy: Code(s): Z79.01 - correction (current) use of 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
== END 2025-10-27 08:31 | disposition home or self-care (01) ==
LOC: HO.ACS 08:14
PROVIDERS: PCP Internal Medicine; Visit Provider Internal Medicine Medical Oncology
DX: Z79.01 Long term (current) use of anticoagulants (principal)

== ENCOUNTER → 2025-10-27 08:14 | Outpatient (BNVA) | payer BC, SELFPAY | PROVIDERS: PCP Internal Medicine; Visit Provider Internal Medicine Medical Oncology | DX: I82.403 Acute embolism and thrombosis of unspecified deep veins of lower extremity, bilateral (principal); Z51.81 Encounter for therapeutic drug level monitoring; Z79.01 Long term (current) use of anticoagulants | CPT/HCPCS: 85610; 99211 ==

== ENCOUNTER → 2025-11-03 08:30 | Outpatient (BNVA) | payer BC, SELFPAY | PROVIDERS: PCP Internal Medicine; Visit Provider Internal Medicine Medical Oncology | DX: I26.99 Other pulmonary embolism without acute cor pulmonale (principal); Z86.718 Personal history of other venous thrombosis and embolism; Z79.01 Long term (current) use of anticoagulants; Z51.81 Encounter for therapeutic drug level monitoring | CPT/HCPCS: 85610; 99211 ==

== ENCOUNTER 2025-11-11 08:58 | Outpatient (AMB) | payer BC, SELFPAY ==
[2025-11-11 09:05] LABS: Prothrombin Time Whole Bld POC 24.4 sec (11.1-13.5); ~PT, ~INR - Anti Coag Clinic 2.0 (0.9-1.1)
--- NOTE | 2025-11-11 09:10 | MHC.OFFVISCO ---
Intake Intake Visit Reasons: Anticoagulation Allergies enoxaparin Adverse Reaction (Mild, Verified 11/03/25 08:35) Headache Nursing Note INR: 2.0 in therapeutic range of 2-3 Medications and supplements reviewed No changes in health, diet, medications, or supplements, Denies any signs and symptoms of bleeding or bruising or clotting. Bleeding, bruising, clotting discussed Nutritional guidance given to avoid greens today and to have a serving of foods that raise the INR. Pt states he will have grapes Dose: 10mg X 6 days and 7.5mg X 1 day (Mon) F/U INR: 1 week Patient verbalizes understanding of instructions given Anti-Coag Initial Assessment Social Hx Patient Tobacco Use Status: Never used Tobacco alcohol intake: never Alcohol intake frequency: does not drink Cardiovascular Hx: HTN Lung Disease HX: DVT/PE Endocrine Hx: Thyroid Disease Musculoskeletal Hx: Other Blood Disorder Hx: Hyperlipidemia GI Hx: Other Neurological Hx: Epilepsy/Seizures and Migraines/Headaches Cancer HX: Yes (basal cell on face) Psych. Illness/Depression: No Coding Level of Care Code Est Patient Level 1 Diagnoses Current use of anticoagulant therapy Z79.01 Assessment & Plan Assessment & Plan (1) Current use of anticoagulant therapy: Code(s): Z79.01 - FDC (current) use of 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
== END 2025-11-11 09:12 | disposition home or self-care (01) ==
LOC: HO.ACS 08:58
PROVIDERS: PCP Internal Medicine; Visit Provider Internal Medicine Medical Oncology
DX: Z79.01 Long term (current) use of anticoagulants (principal)

== ENCOUNTER → 2025-11-11 08:58 | Outpatient (BNVA) | payer BC, SELFPAY | PROVIDERS: PCP Internal Medicine; Visit Provider Internal Medicine Medical Oncology | DX: Z86.711 Personal history of pulmonary embolism (principal); Z86.718 Personal history of other venous thrombosis and embolism; Z51.81 Encounter for therapeutic drug level monitoring; Z79.01 Long term (current) use of anticoagulants | CPT/HCPCS: 85610; 99211 ==